=== PATIENT | male | born 1955 | race Caucasian/White ===

== ENCOUNTER → 2018-02-10 11:22 | Outpatient (CLI) | payer OTHER, SELFPAY ==
[2018-02-10 12:26] LABS: Estimated Glomerular Filt Rate > 60.0 mL/min (>60)
== END ==
PROVIDERS: Family Provider Student in an Organized Health Care Education/Training Program; Visit Provider Radiology Radiation Oncology
DX: C44.99 Other specified malignant neoplasm of skin, unspecified (principal)
CPT/HCPCS: 36415; 82565

== ENCOUNTER → 2018-03-07 09:46 | Outpatient (CLI) | payer OTHER, SELFPAY ==
[2018-03-07 10:42] LABS: Add Manual Diff / Slide Review NO; Basophils Percent Auto 0.5 % (0-2); Eosinophils Percent Auto 2.8 % (2-4); Hematocrit 39.7 % (41-53); Hemoglobin 14.3 g/dL (13.5-17.5); Lymphocytes Percent Auto 13.9 % (25-40); Mean Corpuscular HGB Conc 36.1 % (30-36); Mean Corpuscular Hemoglobin 30.2 PG (26-34); Mean Corpuscular Volume 83.5 fL (80-100); Monocytes Percent Auto 8.8 % (3-14); Neutrophils Absolute Auto 3900 /uL (3000-5900); Platelet Count 237 X10^3/uL (150-400); Red Blood Cell Count 4.75 X10^6/uL (4.5-5.9); Red Cell Distribution Width 14.1 % (11.6-14.8); White Blood Cell Count 5.3 X10^3/uL (4.5-11.0)
[2018-03-07 10:50] LABS: Hemoglobin A1C% w Est Avg Glu 5.5 % (4.0-6.0)
[2018-03-07 10:53] LABS: Blood Urea Nitrogen 25 mg/dL (9-20); Calcium 9.2 mg/dL (8.4-10.2); Carbon Dioxide 29 mmol/L (22-32); Chloride 101 mmol/L (98-107); Cholesterol 161 mg/dL (140-199); Estimated Glomerular Filt Rate > 60.0 mL/min (>60); Glucose 116 mg/dL (80-110); HDL Cholesterol 40 mg/dL (40-60); HEMOLYSIS < 15 (0-50); LDL Cholesterol Calculated 108 mg/dL (<100); Potassium 3.6 mmol/L (3.4-5.1); Sodium 143 mmol/L (137-145); Triglycerides 67 mg/dL (35-150)
[2018-03-07 11:17] LABS: Vitamin D 25 Hydroxy (D3) 23.9 ng/mL (30.0-100.0)
[2018-03-07 11:32] LABS: TSH w/ Reflex to FT4 0.69 uIU/mL (0.47-4.68)
== END ==
PROVIDERS: Family Provider Student in an Organized Health Care Education/Training Program; PCP Family Medicine; Visit Provider Student in an Organized Health Care Education/Training Program
DX: Z23 Encounter for immunization (principal); R50.9 Fever, unspecified; E11.9 Type 2 diabetes mellitus without complications; I10 Essential (primary) hypertension; E55.9 Vitamin D deficiency, unspecified
CPT/HCPCS: 36415; 80048; 80061; 82306; 83036; 84443; 85025

== ENCOUNTER → 2018-08-24 11:09 | Outpatient (CLI) | payer OTHER, SELFPAY ==
[2018-08-24 12:11] LABS: Hemoglobin A1C% w Est Avg Glu 5.8 % (4.0-6.0)
[2018-08-24 12:26] LABS: Alanine Aminotransferase 14 IU/L (21-72); Albumin 4.2 g/dL (3.5-5.0); Albumin Globulin Ratio 1.4 (1.0-2.8); Alkaline Phosphatase 41 U/L (38-126); Aspartate Aminotransferase 17 IU/L (17-59); Bilirubin Total 0.5 mg/dL (0.2-1.3); Blood Urea Nitrogen 20 mg/dL (9-20); Carbon Dioxide 30 mmol/L (22-32); Chloride 101 mmol/L (98-107); Estimated Glomerular Filt Rate > 60.0 mL/min (>60); Globulin 3.1 g/dL (1.7-4.1); Glucose 163 mg/dL (80-110); HEMOLYSIS < 15 (0-50); Potassium 3.3 mmol/L (3.4-5.1); Sodium 140 mmol/L (137-145); Total Protein 7.3 g/dL (6.3-8.2)
[2018-08-24 12:41] LABS: Vitamin D 25 Hydroxy (D3) 37.6 ng/mL (30.0-100.0)
== END ==
PROVIDERS: Family Provider Student in an Organized Health Care Education/Training Program; PCP Student in an Organized Health Care Education/Training Program; Visit Provider Student in an Organized Health Care Education/Training Program
DX: E11.9 Type 2 diabetes mellitus without complications (principal); E55.9 Vitamin D deficiency, unspecified
CPT/HCPCS: 36415; 80053; 82306; 83036

== ENCOUNTER 2019-10-11 16:05 | Emergency (ER) | payer MEDICARE, SELFPAY ==
[2019-10-11] VITALS (19 sets, daily range): BP systolic 180–260; BP diastolic 80–121; PULSE 71–84; RESP 14–24; TEMP 36.8; O2SAT 98–100; BMI 26.6
--- NOTE | 2019-10-11 16:20 | DI.RAD.S_ITS ---
PROCEDURE: XR CHEST 1V INDICATIONS: htn TECHNIQUE: One view of the chest was acquired. COMPARISON: [facility], , CHEST 1 VIEW, 09/23/2009, 22:14. FINDINGS: Surgical changes and devices: None. Lungs and pleura: Lungs are clear. No pleural effusions or pneumothorax. Mediastinum: Mediastinal contours appear normal. Heart size is normal. Bones and chest wall: No suspicious bony lesions. Overlying soft tissues appear unremarkable. IMPRESSION: No evidence acute pulmonary process. Dictated by: Renaldo Brown M.D. on 10/11/2019 at 16:40 Approved by: Renaldo Brown M.D. on 10/11/2019 at 16:41
--- NOTE | 2019-10-11 16:22 | ED.GENADULT ---
HPI - General Adult <NILDA Freedman - Last Filed: 10/11/19 20:53> General Chief complaint: Hypertension Stated complaint: states elevated blood pressure Time Seen by Provider: 10/11/19 16:09 Source: patient Mode of arrival: Ambulatory Limitations: no limitations History of Present Illness HPI narrative: The patient is a 64-year-old male with history of diabetes, hyperlipidemia, hypertension and cerebral aneurysm as well as CVA who presents with a chief complaint of hypertension. He states he ate a meal at the [employer] that was it deep fried chicken fingers with honey mustard sauce and then went to his primary care provider appointment where he was found to be hypertensive in the 200 systolic range. He denies any chest pain shortness of breath. He denies any nausea or vomiting. He states overall he feels fine, that his doctor was just worried about his blood pressure. He states he takes verapamil, losartan, and hydrochlorothiazide. He states he took his medications this morning. He denies any abnormal headache, dizziness or lightheadedness. Related Data Home Medications Medication Instructions Recorded Confirmed aspirin 81 mg tablet,delayed 81 mg PO DAILY 05/05/19 10/11/19 release Previous Rx's Medication Instructions Recorded verapamil 180 mg tablet,extended 180 mg PO BID #180 tab 06/28/18 release Nebulizer #1 ea 10/11/19 hydralazine 25 mg tablet 25 mg PO QID #120 tab 10/12/19 losartan 100 mg tablet 100 mg PO DAILY #90 tab 10/12/19 Allergies Allergy/AdvReac Type Severity Reaction Status Date / Time No Known Drug Allergies Allergy Verified 10/11/19 16:14 Patient History <NILDA Freedman - Last Filed: 10/11/19 20:53> Medical History (Updated 10/11/19 @ 20:47 by NILDA Freedman) Cerebral aneurysm (Resolved) Cerebrovascular accident (CVA) of thalamus (Resolved 05/2009) Chicken pox (Resolved) Diabetes mellitus (Chronic) Foot fracture, left (Resolved) Fracture of right lower extremity (Resolved) Hyperlipidemia (Chronic) Hypertension (Chronic) Squamous cell carcinoma of skin of scalp and neck (Resolved 06/2017) Testicular cancer (Resolved 1997) Surgical History (Updated 02/10/18 @ 11:42 by Yesenia Lott) History of orchiectomy, unilateral (Resolved 1997) History of orthopedic surgery (Resolved) History of squamous cell carcinoma excision (Resolved 06/2017) Family History (Updated 02/10/18 @ 11:25 by Yesenia Lott) Father Cancer Heart disease Diabetes mellitus Grandfather Heart disease Grandmother Stroke Mother Hypertension Asthma Social History Smoking Status: Never smoker alcohol intake: never substance use type: marijuana Smoking Status: Never smoker Substance Use Type: marijuana Exam <NILDA Freedman - Last Filed: 10/11/19 20:53> Initial Vital Signs Initial Vital Signs: Vital Signs Temperature 98.2 F 10/11/19 16:14 Pulse Rate 78 10/11/19 16:14 Respiratory Rate 10/11/19 16:14 Blood Pressure 260/121 H 10/11/19 16:14 Pulse Oximetry 98 10/11/19 16:14 <Bradley Lanza MD - Last Filed: 10/25/19 07:16> Initial Vital Signs Initial Vital Signs: Vital Signs Temperature 98.2 F 10/11/19 16:14 Pulse Rate 78 10/11/19 16:14 Respiratory Rate 10/11/19 16:14 Blood Pressure 260/121 H 10/11/19 16:14 Pulse Oximetry 98 10/11/19 16:14 Course <NILDA Freedman - Last Filed: 10/11/19 20:53> Orders Ordered: Discontinued Medications Hydralazine HCl (Apresoline) 10 mg IV NOW ONE Stop: 10/11/19 17:03 Last Admin: 10/11/19 17:20 Dose: 10 mg Documented by: [email or web address] Potassium Chloride (Klor-Con M20) 40 meq PO NOW ONE Stop: 10/11/19 20:48 Last Admin: 10/11/19 21:26 Dose: 40 meq Documented by: [email or web address] Verapamil HCl (Verapamil Er) 180 mg PO NOW ONE Stop: 10/11/19 17:12 Last Admin: 10/11/19 17:49 Dose: 180 mg Documented by: [email or web address].CL Vital Signs Vital signs: Vital Signs - 8 hr 10/11/19 16:14 10/11/19 17:20 10/11/19 17:30 Temperature 98.2 F Pulse Rate 78 73 77 Respiratory Rate 20 16 Blood Pressure 260/121 H 225/107 H 221/107 H Pulse Oximetry 98 99 10/11/19 18:05 10/11/19 18:13 10/11/19 18:15 Temperature Pulse Rate 81 82 83 Respiratory Rate 16 24 19 Blood Pressure 252/112 H 228/109 H Pulse Oximetry 99 10/11/19 19:10 Temperature Pulse Rate 77 Respiratory Rate 14 Blood Pressure 223/104 H Pulse Oximetry <Bradley Lanza MD - Last Filed: 10/25/19 07:16> Orders Ordered: Discontinued Medications Hydralazine HCl (Apresoline) 10 mg IV NOW ONE Stop: 10/11/19 17:03 Last Admin: 10/11/19 17:20 Dose: 10 mg Documented by: [email or web address] Potassium Chloride (Klor-Con M20) 40 meq PO NOW ONE Stop: 10/11/19 20:48 Last Admin: 10/11/19 21:26 Dose: 40 meq Documented by: KBROTEM Verapamil HCl (Verapamil Er) 180 mg PO NOW ONE Stop: 10/11/19 17:12 Last Admin: 10/11/19 17:49 Dose: 180 mg Documented by: [email or web address] Vital Signs Vital signs: Vital Signs - 8 hr 10/11/19 16:14 10/11/19 17:20 10/11/19 17:30 Temperature 98.2 F Pulse Rate 78 73 77 Respiratory Rate 20 16 Blood Pressure 260/121 H 225/107 H 221/107 H Pulse Oximetry 98 99 10/11/19 18:05 10/11/19 18:13 10/11/19 18:15 Temperature Pulse Rate 81 82 83 Respiratory Rate 16 24 19 Blood Pressure 252/112 H 228/109 H Pulse Oximetry 99 10/11/19 19:10 Temperature Pulse Rate 77 Respiratory Rate 14 Blood Pressure 223/104 H Pulse Oximetry Medical Decision Making <MANOLO Freedman-BC - Last Filed: 10/11/19 20:53> Lab Data Result diagrams: 10/11/19 16:20 10/11/19 16:20 Labs: Lab Results 10/11/19 10/11/19 10/11/19 Range/Units 16:20 16:20 17:50 WBC 8.6 (4.5-11.0) X10^3/uL RBC 5.10 (4.5-5.9) X10^6/uL Hgb 15.0 (13.5-17.5) g/dL Hct 42.4 (41-53) % MCV 83.2 (80-100) fL MCH 29.4 (26-34) PG MCHC 35.3 (30-36) % RDW 13.9 (11.6-14.8) % Plt Count 229 (150-400) X10^3/uL Neut % (Auto) 77.7 H (50-75) % Lymph % (Auto) 12.7 L (25-40) % [place] % (Auto) 8.1 (3-14) % Eos % (Auto) 0.9 L (2-4) % Baso % (Auto) 0.6 (0-2) % Neut # (Auto) 6700 (1064-3854) /uL Lymph # (Auto) 1100 (9204-9214) /uL [place] # (Auto) 700 (0-900) /uL Eos # (Auto) 100 (0-450) /uL Baso # (Auto) 0 (0-100) /uL Sodium 139 (137-145) mmol/L Potassium 3.2 L (3.4-5.1) mmol/L Chloride 102 (98-107) mmol/L Carbon Dioxide 28 (22-32) mmol/L BUN 23 H (9-20) mg/dL Creatinine 1.07 (0.66-1.25) mg/dL Estimated GFR > 60.0 (>60) mL/min BUN/Creatinine Ratio 21.5 (6-22) Glucose 168 H (80-110) mg/dL Calcium 9.4 (8.4-10.2) mg/dL Total Bilirubin 0.4 (0.2-1.3) mg/dL AST 21 (17-59) IU/L ALT 23 (<50) IU/L Alkaline Phosphatase 50 (38-126) U/L Total Creatine Kinase 70 (55-170) U/L CK-MB (CK-2) TNP CK-MB (CK-2) Rel Index TNP Troponin I < 0.012 (0.01-0.034) ng/mL Total Protein 7.3 (6.3-8.2) g/dL Albumin 4.4 (3.5-5.0) g/dL Globulin 2.9 (1.7-4.1) g/dL Albumin/Globulin Ratio 1.5 (1.0-2.8) Lipase 247 (23-300) U/L Urine RBC None seen (0-5/HPF) Urine WBC None seen (0-5/HPF) Urine Bacteria None seen (None) Ur Culture Indicated? Cult not indicated Micro UA Comment Microscopic normal Urine Dip Bedside Urine Glucose Negative Bedside Urine Bilirubin - Negative Bedside Urine Ketone - Negative Urine Specific [place] 1.015 Bedside Urine Occult Blood +/- Bedside Urine pH 7.0 Bedside Urine Protein - Negative Bedside Urine Urobilinogen +/- 1mg Bedside Urine Nitrite - Negative Bedside Urine Leukocytes - Negative Esterase Point of care testing: Urine Dip Bedside Urine Glucose Negative Bedside Urine Bilirubin - Negative Bedside Urine Ketone - Negative Urine Specific [place] 1.015 Bedside Urine Occult Blood +/- Bedside Urine pH 7.0 Bedside Urine Protein - Negative Bedside Urine Urobilinogen +/- 1mg Bedside Urine Nitrite - Negative Bedside Urine Leukocytes - Negative Esterase <Bradley Lanza MD - Last Filed: 10/25/19 07:16> Lab Data Labs: Lab Results 10/11/19 10/11/19 10/11/19 Range/Units 16:20 16:20 17:50 WBC 8.6 (4.5-11.0) X10^3/uL RBC 5.10 (4.5-5.9) X10^6/uL Hgb 15.0 (13.5-17.5) g/dL Hct 42.4 (41-53) % MCV 83.2 (80-100) fL MCH 29.4 (26-34) PG MCHC 35.3 (30-36) % RDW 13.9 (11.6-14.8) % Plt Count 229 (150-400) X10^3/uL Neut % (Auto) 77.7 H (50-75) % Lymph % (Auto) 12.7 L (25-40) % [place] % (Auto) 8.1 (3-14) % Eos % (Auto) 0.9 L (2-4) % Baso % (Auto) 0.6 (0-2) % Neut # (Auto) 6700 (0785-7326) /uL Lymph # (Auto) 1100 (1249-0341) /uL [place] # (Auto) 700 (0-900) /uL Eos # (Auto) 100 (0-450) /uL Baso # (Auto) 0 (0-100) /uL Sodium 139 (137-145) mmol/L Potassium 3.2 L (3.4-5.1) mmol/L Chloride 102 (98-107) mmol/L Carbon Dioxide 28 (22-32) mmol/L BUN 23 H (9-20) mg/dL Creatinine 1.07 (0.66-1.25) mg/dL Estimated GFR > 60.0 (>60) mL/min BUN/Creatinine Ratio 21.5 (6-22) Glucose 168 H (80-110) mg/dL Calcium 9.4 (8.4-10.2) mg/dL Total Bilirubin 0.4 (0.2-1.3) mg/dL AST 21 (17-59) IU/L ALT 23 (<50) IU/L Alkaline Phosphatase 50 (38-126) U/L Total Creatine Kinase 70 (55-170) U/L CK-MB (CK-2) TNP CK-MB (CK-2) Rel Index TNP Troponin I < 0.012 (0.01-0.034) ng/mL Total Protein 7.3 (6.3-8.2) g/dL Albumin 4.4 (3.5-5.0) g/dL Globulin 2.9 (1.7-4.1) g/dL Albumin/Globulin Ratio 1.5 (1.0-2.8) Lipase 247 (23-300) U/L Urine RBC None seen (0-5/HPF) Urine WBC None seen (0-5/HPF) Urine Bacteria None seen (None) Ur Culture Indicated? Cult not indicated Micro UA Comment Microscopic normal Urine Dip Bedside Urine Glucose Negative Bedside Urine Bilirubin - Negative Bedside Urine Ketone - Negative Urine Specific [place] 1.015 Bedside Urine Occult Blood +/- Bedside Urine pH 7.0 Bedside Urine Protein - Negative Bedside Urine Urobilinogen +/- 1mg Bedside Urine Nitrite - Negative Bedside Urine Leukocytes - Negative Esterase Point of care testing: Urine Dip Bedside Urine Glucose Negative Bedside Urine Bilirubin - Negative Bedside Urine Ketone - Negative Urine Specific [place] 1.015 Bedside Urine Occult Blood +/- Bedside Urine pH 7.0 Bedside Urine Protein - Negative Bedside Urine Urobilinogen +/- 1mg Bedside Urine Nitrite - Negative Bedside Urine Leukocytes - Negative Esterase Discharge Plan Departure Patient Disposition: Home Clinical Impression: Essential hypertension Discharge Date/Time: 10/11/19 22:02 Instructions: DI for High Blood Pressure Activity Restrictions/Additional Instructions: Thank you for trusting us with your care today. As discussed, your blood pressure is very elevated. Personally I wanted you to stay in the hospital, but you have declined. As discussed, your welcome to come back at any point in time. Please watch for symptoms such as chest pain, shortness of breath etcetera We have discussed that you have increased risk of or injury due to your aneurysm with high blood pressure. Please follow-up with primary care provider tomorrow. Please come back to the emergency department for any acute concerns. Prescriptions: No Action verapamil 180 mg tablet extended release 180 mg PO BID Qty: 180 RF: 3 losartan 100 mg tablet 100 mg PO DAILY Qty: 90 RF: 1 hydralazine 25 mg tablet 25 mg PO QID Qty: 120 RF: 0 aspirin 81 mg tablet,delayed release (DR/EC) 81 mg PO DAILY RF: 0 (DME) Nebulizer Qty: 1 RF: 0 Referrals: Zelalem Cheng MD [Primary Care Provider] - <Bradley Lanza MD - Last Filed: 10/25/19 07:16> Cosign ED Attending Cosignature Attestation: I was immediately available in the department for consultation. This documentation has been reviewed and I agree with assessment and plan. Supervised by Bradley Lanza MD
[2019-10-11 16:35] LABS: Add Manual Diff / Slide Review NO; Basophils Absolute Auto 0 /uL (0-100); Basophils Percent Auto 0.6 % (0-2); Eosinophils Absolute Auto 100 /uL (0-450); Eosinophils Percent Auto 0.9 % (2-4); Hematocrit 42.4 % (41-53); Lymphocytes Absolute Auto 1100 /uL (1100-4500); Lymphocytes Percent Auto 12.7 % (25-40); Mean Corpuscular HGB Conc 35.3 % (30-36); Mean Corpuscular Hemoglobin 29.4 PG (26-34); Mean Corpuscular Volume 83.2 fL (80-100); Monocytes Absolute Auto 700 /uL (0-900); Monocytes Percent Auto 8.1 % (3-14); Neutrophils Absolute Auto 6700 /uL (1500-7000); Neutrophils Percent Auto 77.7 % (50-75); Platelet Count 229 X10^3/uL (150-400); Red Cell Distribution Width 13.9 % (11.6-14.8); White Blood Cell Count 8.6 X10^3/uL (4.5-11.0)
[2019-10-11 16:44] LABS: Alanine Aminotransferase 23 IU/L (<50); Albumin 4.4 g/dL (3.5-5.0); Albumin Globulin Ratio 1.5 (1.0-2.8); Alkaline Phosphatase 50 U/L (38-126); Aspartate Aminotransferase 21 IU/L (17-59); BUN Creatinine Ratio 21.5 (6-22); Bilirubin Total 0.4 mg/dL (0.2-1.3); Blood Urea Nitrogen 23 mg/dL (9-20); Calcium 9.4 mg/dL (8.4-10.2); Carbon Dioxide 28 mmol/L (22-32); Chloride 102 mmol/L (98-107); Creatine Kinase 70 U/L (55-170); Estimated Glomerular Filt Rate > 60.0 mL/min (>60); Globulin 2.9 g/dL (1.7-4.1); Glucose 168 mg/dL (80-110); HEMOLYSIS < 15 (0-50); Lipase 247 U/L (23-300); Potassium 3.2 mmol/L (3.4-5.1); Sodium 139 mmol/L (137-145); Total Protein 7.3 g/dL (6.3-8.2)
[2019-10-11 16:55] LABS: Troponin I < 0.012 ng/mL (0.01-0.034)
--- NOTE | 2019-10-11 17:06 | PC.NURSE ---
ED physician in room to speak with pt regarding admission.Dietary order arrived. HOB elevated.
[2019-10-11] MEDS: HYDRALAZINE 20 MG/ML VIAL 10 MG IV (17:20)
[2019-10-11] MEDS: VERAPAMIL SR 180 MG TABLET PO (17:49)
[2019-10-11 18:27] LABS: Bacteria Urine None Seen; RBC Urine None Seen (0-5/HPF); WBC Urine None Seen (0-5/HPF)
[2019-10-11 18:32] LABS: Culture Indicated Urine Cult Not Indicated; Urine Comments Microscopic Normal
[2019-10-11] MEDS: POTASSIUM CHLORIDE 20 MEQ TAB 40 MEQ PO (21:26)
== END 2019-10-11 22:02 | disposition home or self-care (01) ==
PROVIDERS: Emergency Provider Nurse Practitioner Family; Family Provider Student in an Organized Health Care Education/Training Program; PCP Student in an Organized Health Care Education/Training Program
DX: I10 Essential (primary) hypertension (principal); E11.9 Type 2 diabetes mellitus without complications; E78.5 Hyperlipidemia, unspecified; Z86.79 Personal history of other diseases of the circulatory system
CPT/HCPCS: 71045; 80053; 81003; 81015; 82550; 83690; 84484; 85025; 96374; 99284; J0360

== ENCOUNTER 2020-01-19 12:24 | Inpatient (IN) | payer MEDICARE, SELFPAY ==
[2020-01-19] VITALS (18 sets, daily range): BP systolic 172–240; BP diastolic 88–100; PULSE 70–86; RESP 16–22; TEMP 37.2–37.3; O2SAT 94–99; BMI 25.0
--- NOTE | 2020-01-19 12:32 | DI.CT.S_ITS ---
PROCEDURE: CT HEAD/BRAIN WO CON INDICATIONS: 48 hours since symptoms, NOT TPA candidate TECHNIQUE: Noncontrast 4.5 mm thick angled axial sections acquired from the foramen magnum to the vertex, with coronal and sagittal reformats. For radiation dose reduction, the following was used: automated exposure control, adjustment of mA and/or kV according to patient size. COMPARISON: [facility], CT, HEAD WITHOUT CONTRAST, 06/12/2009, 6:10. FINDINGS: Image quality: Excellent. CSF spaces: Basal cisterns are patent. No extra-axial fluid collections. The ventricles are symmetric in size and shape. Brain: There is focal low density seen involving the right parietal region laterally, as on series 2, image 20. No intracranial bleeds or masses. There is cerebral volume loss for age, with resultant ventricular and sulcal prominence. There are periventricular and deep white matter chronic small vessel ischemic changes. There is intracranial internal carotid artery atherosclerosis. Skull and face: Calvarium and visualized facial bones appear intact, without suspicious lesions. Sinuses: Visualized sinuses and mastoids are clear. IMPRESSION: No acute intracranial hemorrhage is seen. A subacute to remote infarction can be seen involving the right parietal region. This cannot be seen on the 2009 examination. If there is strong clinical suspicion for an acute stroke, please consider an MRI for further evaluation, as it is more sensitive (assuming that there is no contraindication to MRI). Dictated by: Santiago Page M.D. on 01/19/2020 at 11:49 Approved by: Santiago Page M.D. on 01/19/2020 at 11:50
[2020-01-19 12:57] LABS: Add Manual Diff / Slide Review NO; Basophils Absolute Auto 0 /uL (0-100); Basophils Percent Auto 0.3 % (0-2); Eosinophils Absolute Auto 0 /uL (0-450); Eosinophils Percent Auto 0.5 % (2-4); Hematocrit 40.4 % (41-53); Hemoglobin 13.9 g/dL (13.5-17.5); Lymphocytes Absolute Auto 600 /uL (1100-4500); Lymphocytes Percent Auto 7.9 % (25-40); Mean Corpuscular HGB Conc 34.4 % (30-36); Mean Corpuscular Hemoglobin 29.3 PG (26-34); Mean Corpuscular Volume 85.3 fL (80-100); Monocytes Absolute Auto 500 /uL (0-900); Monocytes Percent Auto 5.9 % (3-14); Neutrophils Absolute Auto 6700 /uL (1500-7000); Neutrophils Percent Auto 85.4 % (50-75); Platelet Count 231 X10^3/uL (150-400); Red Blood Cell Count 4.74 X10^6/uL (4.5-5.9); Red Cell Distribution Width 14.4 % (11.6-14.8); White Blood Cell Count 7.9 X10^3/uL (4.5-11.0)
[2020-01-19 13:06] LABS: INR 1.1 (0.9-1.3); Prothrombin Time 12.9 SECONDS (10.1-12.7)
[2020-01-19 13:09] LABS: PTT Partial Thromboplastin Tim 27 SECONDS (26.4-36.2)
--- NOTE | 2020-01-19 13:12 | DI.MRI.S_ITS ---
PROCEDURE: MR STROKE Pre- and post-contrast brain MRI, non-contrast brain MR angiogram, pre- and postcontrast neck MR angiogram INDICATIONS: stroke TECHNIQUE: Brain: Noncontrast axial T1 spin echo, axial T2 fast spin echo, sagittal and axial FLAIR, coronal T2 fast spin echo, axial gradient echo, axial diffusion and ADC through the brain. After the administration of contrast, axial 3D VIBE of the cranial vasculature and brain. Brain MRA: Non-contrast 3-D time of flight MR angiogram, with multiple nfbabmu-jekprimoy-lsceplebzn (MIP) reformats performed. Neck MRA: Axial and sagittal TruFISP through the neck. Coronal dynamic MR angiogram during administration of contrast in the arterial and venous phases, with 3-dimenstional mvrqnup-bflegggle-hqzqbrjhrp (MIP) reformats constructed from subtraction images. COMPARISON: [facility], CT, CT HEAD/BRAIN WO CON, 01/19/2020, 12:36. FINDINGS: Image quality: Excellent. BRAIN: CSF spaces: Ventricles are normal in size and shape. Basal cisterns are patent. No extra-axial fluid collections. Brain: No intracranial bleeds or mass effects. Marquez-white matter interface is normal on the left and unchanged on right the posterior right parietal occipital region son acute ischemic injury corresponding to the abnormality found earlier same day in that area on CT scanning. This measures up to 4.5 cm in maximal dimension and has mild adjacent mass effect. A small amount of luxury perfusion comprised of mildly heterogeneous contrast enhancement within this area of ischemic injury can be seen on postcontrast imaging open (series 36, image 110, for example). Diffusion weighted images show no superimposed acute ischemic insults over the convexities in addition to this subacute abnormality. However, the right and paramedian pontomedullary junction portion of the brainstem shows a small area measuring approximately 1.5 cm of acute/subacute ischemic injury without significant mass effect or associated hemorrhage. This is best seen on diffusion imaging series 26, image 55. Elsewhere the brainstem appears normal. Normal intravascular flow voids are present. No abnormal intracranial enhancement. Skull and face: Calvarial marrow signal is normal. Orbits appear normal. Sinuses: Sinuses and mastoids are clear. BRAIN MR ANGIOGRAM: Anterior circulation: Intracranial internal carotid arteries are normal in size and enhancement. The flow within the paired anterior cerebral arteries is normal and symmetric. The flow within the middle cerebral arteries is normal and symmetric. The anterior communicating artery is seen. No stenoses, occlusions, or aneurysms. Posterior circulation: The visualized portions of the vertebral arteries demonstrate normal caliber, and join to form a normal appearing basilar artery. The flow within the posterior cerebral arteries is normal and symmetric. No stenoses, occlusions, or aneurysms. NECK MR ANGIOGRAM: Carotids: Great vessels demonstrate a conventional anatomy as they arise from the aortic arch. The origins of the common carotid arteries appear patent. The calibers and courses of both common carotid arteries are normal. The bifurcation regions appear normal bilaterally. The internal carotid arteries demonstrate normal course and caliber. Posterior circulation: The origins of the vertebral arteries appear patent. More superior portions of both vertebral arteries demonstrate normal course and caliber, and join to form a normal appearing basilar artery. Miscellaneous: Subclavian arteries appear patent. Pre-contrast images through the neck show no soft tissue abnormalities. IMPRESSION: BRAIN MRI: Subacute ischemic injury is present within a 4.5 cm diameter sharply demarcated area of the right occipital parietal region corresponding to the area of abnormality identified earlier same day in that area, with a small amount of contrast enhancement involving the injured brain parenchyma due to secondary increased per me ability of the blood brain barrier as result. No hemorrhage is found. There is, however, a more recent appearing area of focal ischemic injury involving the pontomedullary junction of the brainstem on the right, extending to the midline. This 1.5 cm area shows elevated diffusion signal and also elevated FLAIR signal but no heterogeneous contrast enhancement, suggestive of a more acute event. BRAIN MR ANGIOGRAM: No aneurysm or occlusion found. NECK MR ANGIOGRAM: Normal cervical MR angiogram. Dictated by: Tao Strauss M.D. on 01/19/2020 at 20:41 Approved by: Tao Strauss M.D. on 01/19/2020 at 20:54
--- NOTE | 2020-01-19 13:12 | ED.NEUROSD ---
HPI - Neuro Symptoms/Deficit General Chief Complaint: Neuro Symptoms/Deficit Stated Complaint: dizziness, falls, slurring speech, mouth droop Time Seen by Provider: 01/19/20 12:27 Source: patient and family Mode of arrival: Ambulatory Limitations: no limitations History of Present Illness HPI Narrative: Patient is a 65-year-old male with history of aneurysm, hypertension, hyperlipidemia presenting with probable stroke. states 2 days ago he started having difficulty walking he fell last night and hit is head. Today she noticed that he was still having some trouble walking any had some right-sided facial droop and possibly some speech difficulty as well. He has not have speech difficulty now he does have some mild right facial droop. He states that he did have an aneurysmal bleed while ago but he never had it coiled they were unable to reach it. He denies any chest pain or shortness of breath or other symptoms. He has been walking with a cane in the house because he feels weak and unsteady which is abnormal for him. Onset (ago): day(s) Timing confirmed by: spouse Location: right face and ataxia History of same: No Quality: weak On Anticoagulants: No Related Data Home Medications Medication Instructions Recorded Confirmed aspirin 81 mg tablet,delayed 81 mg PO QAM 05/05/19 01/19/20 release losartan 100 mg PO QAM 01/19/20 01/19/20 Previous Rx's Medication Instructions Recorded verapamil 180 mg tablet,extended 180 mg PO BID #180 tab 11/03/19 release hydralazine 50 mg tablet 50 mg PO QID #360 tab 11/08/19 Allergies Allergy/AdvReac Type Severity Reaction Status Date / Time No Known Drug Allergies Allergy Verified 10/11/19 16:14 Review of Systems Review of Systems Narrative: GENERAL: Denies chills, fatigue, malaise, fever, sweats, travel HEENT: Denies sinus pain, ear pain, sore throat, difficulty swallowing, neck pain RESPIRATORY: Denies dyspnea, cough, wheezing, hemoptysis, sputum. CARDIOVASCULAR: Denies chest pain, palpitations, orthopnea, edema GASTROINTESTINAL: Denies nausea, vomiting, abdominal pain, diarrhea, constipation, melena. : Denies dysuria, frequency, incontinence, hematuria, urinary retention, flank pain. MUSCULOSKELETAL: Denies weakness, joint pain, or bony pain SKIN: No rash, no erythema, no pruritus NEUROLOGIC: See HPI PSYCHIATRIC: No concerning psychosocial issues. 12 point review of systems is negative except for those stated above and HPI Patient History Medical History Cerebral aneurysm (Resolved) Cerebrovascular accident (CVA) of thalamus (Resolved 05/2009) Chicken pox (Resolved) Diabetes mellitus (Chronic) Foot fracture, left (Resolved) Fracture of right lower extremity (Resolved) Hyperlipidemia (Chronic) Hypertension (Chronic) Squamous cell carcinoma of skin of scalp and neck (Resolved 06/2017) Testicular cancer (Resolved 1997) Surgical History History of orchiectomy, unilateral (Resolved 1997) History of orthopedic surgery (Resolved) History of squamous cell carcinoma excision (Resolved 06/2017) Family History Father Cancer Heart disease Diabetes mellitus Grandfather Heart disease Grandmother Stroke Mother Hypertension Asthma Social History household members: spouse Smoking Status: Current every day smoker alcohol intake: never substance use type: marijuana Smoking Status: Never smoker Substance Use Type: marijuana Exam Initial Vital Signs Initial Vital Signs: Vital Signs Pulse Rate 86 01/19/20 12:30 GENERAL: Alert male appears older than stated age HEENT: Head atraumatic,EOMI, pupils reactive, face symmetric, moist mucous membranes CARDIOVASCULAR: Regular rate and rhythm without murmurs, rubs or gallops. RESPIRATORY: Breath sounds equal bilaterally, no wheezes rales or rhonchi. ABDOMEN: Soft, nontender. Normoactive bowel sounds all 4 quadrants. No guarding or rebound. EXTREMITIES: Normal range of motion, no clubbing or edema. Neurovascularly intact NEUROLOGICAL: Alert and oriented x4.No aphasia noticed her 3 Cranial nerves II through XII grossly intact. Good [id number], good [id number], strength equal bilaterally, no dysarthria or aphasia, sensation in tact to soft touch bilaterally, no visual changes, no facial droop SKIN: Warm, dry, no laceration, no petechiae, no rashes or lesions. Scores NIH Stroke Scale Level of Conciousness: Alert, keenly responsive Ask month/age: Answers both questions correctly. Open/close eyes, close hand: Performs both tasks correctly Best gaze horizontal: Normal Visual retana: No visual loss Facial palsy: Minor paralysis, flattened nasolabial fold, asymmetry on smiling Left arm drift: No drift for full 10 sec Right arm drift: No drift for full 10 sec Left leg drift: No drift for full 5 sec Right leg drift: No drift for full 5 sec Limb ataxia: Absent Sensory on face/arms/legs: Normal, no sensory loss Best language: No aphasia, normal Dysarthria: Normal Extinction or inattention: No abnormality Total NIH Stroke scale score: 1 Course Orders Ordered: ED Orders 01/19/20 12:32 CT Stroke Stat Urine Drug Screen, Rapid Stat EKG-12 Lead Stat 01/19/20 12:45 Complete Blood Count AUTO DIFF Stat Comprehensive Metabolic Panel Stat Partial Thromboplastin Time Stat Prothrombin Time INR Stat Troponin & CK Cardiac Panel Stat 01/19/20 13:12 MR stroke Stat 01/19/20 13:28 COVID19 -ED/INPAT/OR/L&D Stat Acetaminophen (Tylenol) 650 mg PO Q6HR PRN PRN Reason: Fever/Mild Pain (1-3) Aspirin (Aspirin Ec) 81 mg PO DAILY [facility] Atorvastatin Calcium (Lipitor) 40 mg PO BEDTIME [facility] Dextrose (D50w) 25 gm IV PRN PRN PRN Reason: Hypoglycemia Enoxaparin Sodium (Lovenox) 40 mg SUBCUT DAILY [facility] Hydralazine HCl (Apresoline) 50 mg PO QID [facility] Insulin Aspart (Novolog Flexpen) 0 unit SUBCUT ACHS JOHNIE; Protocol Losartan Potassium (Cozaar) 100 mg PO DAILY [facility] Naloxone HCl (Narcan) 0.2 mg IV Q2MIN PRN PRN Reason: Opiate Reversal Ondansetron HCl (Zofran) 4 mg IV Q8HR PRN PRN Reason: Nausea And Vomiting Verapamil HCl (Verapamil Er) 180 mg PO BID JOHNIE Discontinued Medications Aspirin (Aspirin Chew) 324 mg PO NOW ONE Stop: 01/19/20 13:25 Last Admin: 01/19/20 13:46 Dose: 324 mg Documented by: TUTU Hydralazine HCl (Apresoline) 5 mg IV NOW ONE Stop: 01/19/20 13:55 Last Admin: 01/19/20 13:58 Dose: 5 mg Documented by: TUTU Influenza Virus Vaccine (Flu Vaccine) 0.5 ml IM .ONCE ONE Stop: 01/19/20 15:09 Vital Signs Vital signs: Vital Signs - 8 hr 01/19/20 12:30 01/19/20 12:31 01/19/20 12:32 Temperature 99.0 F Pulse Rate 86 82 84 Respiratory Rate 21 22 Blood Pressure 218/94 H 218/94 H Pulse Oximetry 99 99 01/19/20 12:52 01/19/20 13:00 01/19/20 13:30 Temperature Pulse Rate 80 80 80 Respiratory Rate Blood Pressure 210/92 H 208/91 H Pulse Oximetry 98 98 98 01/19/20 13:31 Temperature Pulse Rate 79 Respiratory Rate Blood Pressure 231/93 H Pulse Oximetry 98 MDM - Neuro Symptoms/Deficit Lab Data Attestation: I reviewed the patient's lab results. Result diagrams: 01/19/20 12:45 01/19/20 12:45 Labs: Lab Results 01/19/20 01/19/20 01/19/20 Range/Units 12:45 12:45 12:45 WBC 7.9 (4.5-11.0) X10^3/uL RBC 4.74 (4.5-5.9) X10^6/uL Hgb 13.9 (13.5-17.5) g/dL Hct 40.4 L (41-53) % MCV 85.3 (80-100) fL MCH 29.3 (26-34) PG MCHC 34.4 (30-36) % RDW 14.4 (11.6-14.8) % Plt Count 231 (150-400) X10^3/uL Neut % (Auto) 85.4 H (50-75) % Lymph % (Auto) 7.9 L (25-40) % [place] % (Auto) 5.9 (3-14) % Eos % (Auto) 0.5 L (2-4) % Baso % (Auto) 0.3 (0-2) % Neut # (Auto) 6700 (2855-7902) /uL Lymph # (Auto) 600 L (4111-3904) /uL [place] # (Auto) 500 (0-900) /uL Eos # (Auto) 0 (0-450) /uL Baso # (Auto) 0 (0-100) /uL PT 12.9 H (10.1-12.7) SECONDS INR 1.1 (0.9-1.3) APTT 27 (26.4-36.2) SECONDS Sodium 140 (137-145) mmol/L Potassium 3.6 (3.4-5.1) mmol/L Chloride 106 (98-107) mmol/L Carbon Dioxide 27 (22-32) mmol/L BUN 24 H (9-20) mg/dL Creatinine 1.13 (0.66-1.25) mg/dL Estimated GFR > 60.0 (>60) mL/min BUN/Creatinine Ratio 21.2 (6-22) Glucose 240 H (80-110) mg/dL Calcium 8.9 (8.4-10.2) mg/dL Total Bilirubin 0.7 (0.2-1.3) mg/dL AST 18 (17-59) IU/L ALT 19 (<50) IU/L Alkaline Phosphatase 43 (38-126) U/L Total Creatine Kinase 83 (55-170) U/L CK-MB (CK-2) TNP CK-MB (CK-2) Rel Index TNP Troponin I < 0.012 (0.01-0.034) ng/mL Total Protein 7.1 (6.3-8.2) g/dL Albumin 4.3 (3.5-5.0) g/dL Globulin 2.8 (1.7-4.1) g/dL Albumin/Globulin Ratio 1.5 (1.0-2.8) COVID-19 PCR (Negative) 01/19/20 Range/Units 13:28 WBC (4.5-11.0) X10^3/uL RBC (4.5-5.9) X10^6/uL Hgb (13.5-17.5) g/dL Hct (41-53) % MCV (80-100) fL MCH (26-34) PG MCHC (30-36) % RDW (11.6-14.8) % Plt Count (150-400) X10^3/uL Neut % (Auto) (50-75) % Lymph % (Auto) (25-40) % [place] % (Auto) (3-14) % Eos % (Auto) (2-4) % Baso % (Auto) (0-2) % Neut # (Auto) (1628-5546) /uL Lymph # (Auto) (5748-5178) /uL [place] # (Auto) (0-900) /uL Eos # (Auto) (0-450) /uL Baso # (Auto) (0-100) /uL PT (10.1-12.7) SECONDS INR (0.9-1.3) APTT (26.4-36.2) SECONDS Sodium (137-145) mmol/L Potassium (3.4-5.1) mmol/L Chloride (98-107) mmol/L Carbon Dioxide (22-32) mmol/L BUN (9-20) mg/dL Creatinine (0.66-1.25) mg/dL Estimated GFR (>60) mL/min BUN/Creatinine Ratio (6-22) Glucose (80-110) mg/dL Calcium (8.4-10.2) mg/dL Total Bilirubin (0.2-1.3) mg/dL AST (17-59) IU/L ALT (<50) IU/L Alkaline Phosphatase (38-126) U/L Total Creatine Kinase (55-170) U/L CK-MB (CK-2) CK-MB (CK-2) Rel Index Troponin I (0.01-0.034) ng/mL Total Protein (6.3-8.2) g/dL Albumin (3.5-5.0) g/dL Globulin (1.7-4.1) g/dL Albumin/Globulin Ratio (1.0-2.8) COVID-19 PCR Negative (Negative) Point of Care Testing Glucose POC [address] scan - head: Radiologist's Impression: PROCEDURE: CT HEAD/BRAIN WO CON INDICATIONS: 48 hours since symptoms, NOT TPA candidate TECHNIQUE: Noncontrast 4.5 mm thick angled axial sections acquired from the foramen magnum to the vertex, with coronal and sagittal reformats. For radiation dose reduction, the following was used: automated exposure control, adjustment of mA and/or kV according to patient size. COMPARISON: [facility], CT, HEAD WITHOUT CONTRAST, 06/12/2009, 6:10. FINDINGS: Image quality: Excellent. CSF spaces: Basal cisterns are patent. No extra-axial fluid collections. The ventricles are symmetric in size and shape. Brain: There is focal low density seen involving the right parietal region laterally, as on series 2, image 20. No intracranial bleeds or masses. There is cerebral volume loss for age, with resultant ventricular and sulcal prominence. There are periventricular and deep white matter chronic small vessel ischemic changes. There is intracranial internal carotid artery atherosclerosis. Skull and face: Calvarium and visualized facial bones appear intact, without suspicious lesions. Sinuses: Visualized sinuses and mastoids are clear. IMPRESSION: No acute intracranial hemorrhage is seen. A subacute to remote infarction can be seen involving the right parietal region. This cannot be seen on the 2010 examination. If there is strong clinical suspicion for an acute stroke, please consider an MRI for further evaluation, as it is more sensitive (assuming that there is no contraindication to MRI). Dictated by: Santiago Page M.D. on 01/19/2020 at 11:49 Approved by: Santiago Page M.D. on 01/19/2020 at 11:50 ECG Data Attestation: I personally reviewed and interpreted this ECG as follows: Prior ECG tracings: available for review Interpretation: Rate it was 82 p.r. interval 158 QRS [address] changes or T-wave inversions MDM Narrative Medical decision making narrative: CT shows subacute stroke. Dr. Franks except for CVA. Discharge Plan Departure Patient Disposition: Admitted as Observation Clinical Impression: CVA (cerebral vascular accident) Qualifiers: CVA mechanism: other Qualified Code(s): I63.89 - Other cerebral infarction Discharge Date/Time: 01/19/20 14:44 Referrals: Zelalem Cheng MD [Primary Care Provider] - Admit Date/Time: 01/19/20 13:41 Admit Provider: Tomás Tucker
[2020-01-19 13:13] LABS: Alanine Aminotransferase 19 IU/L (<50); Albumin 4.3 g/dL (3.5-5.0); Albumin Globulin Ratio 1.5 (1.0-2.8); Alkaline Phosphatase 43 U/L (38-126); Aspartate Aminotransferase 18 IU/L (17-59); BUN Creatinine Ratio 21.2 (6-22); Bilirubin Total 0.7 mg/dL (0.2-1.3); Blood Urea Nitrogen 24 mg/dL (9-20); Calcium 8.9 mg/dL (8.4-10.2); Carbon Dioxide 27 mmol/L (22-32); Chloride 106 mmol/L (98-107); Creatine Kinase 83 U/L (55-170); Estimated Glomerular Filt Rate > 60.0 mL/min (>60); Globulin 2.8 g/dL (1.7-4.1); Glucose 240 mg/dL (80-110); HEMOLYSIS < 15 (0-50); Potassium 3.6 mmol/L (3.4-5.1); Sodium 140 mmol/L (137-145); Total Protein 7.1 g/dL (6.3-8.2)
[2020-01-19 13:24] LABS: Troponin I < 0.012 ng/mL (0.01-0.034)
[2020-01-19] MEDS: ASPIRIN 81 MG CHEW TAB 324 MG PO (13:46)
[2020-01-19 13:52] LABS: COVID19 -Nasal RAPID Negative (Negative)
[2020-01-19] MEDS: HYDRALAZINE 20 MG/ML VIAL 5 MG IV (13:58)
--- NOTE | 2020-01-19 15:13 | PC.ADMIT ---
[id number] [facility] Admission Note: The patient,Bradley Jackson,65 y/o, was given written information regarding hospital policies, unit procedures and contact persons. Patient's smoking status: Current every day smoker. Vital Signs - 8 hr 01/19/20 12:30 01/19/20 12:31 01/19/20 12:32 Temperature 99.0 F Pulse Rate 86 82 84 Respiratory Rate 21 22 Blood Pressure 218/94 H 218/94 H Pulse Oximetry 99 99 01/19/20 12:52 01/19/20 13:00 01/19/20 13:30 Temperature Pulse Rate 80 80 80 Respiratory Rate Blood Pressure 210/92 H 208/91 H Pulse Oximetry 98 98 98 01/19/20 13:31 01/19/20 13:53 01/19/20 13:58 Temperature Pulse Rate 79 78 78 Respiratory Rate 17 Blood Pressure 231/93 H 240/100 H 240/100 H Pulse Oximetry 98 01/19/20 14:24 01/19/20 14:40 Temperature 99.1 F Pulse Rate 70 79 Respiratory Rate 16 20 Blood Pressure 220/100 H 172/91 H Pulse Oximetry 96 Pt admitted to room 223 from ED at 1440. Pt is AO x4 and making his needs known with clear speech. R facial droop noted. 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 He scoots himself from gurney to bed and is able to answer admission questions. at bedside states she noticed his speech is slurred, had right face droop and frequent falls at home. Educated pt and to fall risk, use of call light and instructed to wait for assistance before getting OOB. Oriented to environment, routine, plan of care. Both pt and verbalize understanding. Call light in easy reach.
--- NOTE | 2020-01-19 16:46 | P.HP_ITS ---
History of Present Illness History of Present Illness Date Patient Seen: 01/19/20 Time Patient Seen: 16:49 Chief complaint: dizziness, falls, slurring speech, mouth droop Narrative: Bradley Jackson is a 65-year-old male with a past medical history of type 2 diabetes, hypertension, hyperlipidemia, prior pre-auricular rare malignancy s/p radiation, prior CVA per medical records, and prior brain aneurysm with bleeding who presented with dysarthria and right-sided facial droop since yesterday morning. Patient reports about 2 days ago he began to notice difficulties with ambulation and imbalance, but denies any focal weakness, numbness, or tingling. did not notice anything other than he was ?acting weird ?until yesterday when she noted him to have a right-sided facial droop and was slurring his words. She asked him to come into the emergency room, but he did not yesterday. With continued symptoms today he decided to seek medical care. He denies any palpitations, shortness of breath, lower extremity edema. He denies headaches. He denies any nausea, or vomiting. did not notice any focal weakness, and patient did not complain of numbness but seemingly had a more difficult time walking. He typically uses a cane at baseline. 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 In the emergency room, patient was hypertensive, but remainder vital signs are unremarkable. Initial laboratory findings of his CBC were unremarkable, as were coagulation studies. Chemistry showed a glucose of 240, but wore otherwise unremarkable. He had a negative troponin. COVID-19 testing was negative. Initial head CT did not show evidence of hemorrhage but did note a subacute to remote infarction involving the right parietal region which would not correlate with the patient's right-sided symptoms. Initial stroke scale was 1. Patient was given 324 mg of aspirin. He was admitted to Medicine under inpatient status for acute CVA. MRI is ordered and currently pending. Patient History Medical History Cerebral aneurysm (Resolved) Cerebrovascular accident (CVA) of thalamus (Resolved 05/2009) Chicken pox (Resolved) Diabetes mellitus (Chronic) Foot fracture, left (Resolved) Fracture of right lower extremity (Resolved) Hyperlipidemia (Chronic) Hypertension (Chronic) Squamous cell carcinoma of skin of scalp and neck (Resolved 06/2017) Testicular cancer (Resolved 1997) Surgical History History of orchiectomy, unilateral (Resolved 1997) History of orthopedic surgery (Resolved) History of squamous cell carcinoma excision (Resolved 06/2017) Family & Social History Family History Father Cancer Heart disease Diabetes mellitus Grandfather Heart disease Grandmother Stroke Mother Hypertension Asthma Social History: household members spouse Prior Living Arrangements House Safety & Behavioral: Feels Safe in Current Yes Environment Been Physically Hurt or No Threatened By a Person Suicidal Ideation Description None Tobacco & Substance use: Tobacco type cannabis/marijuana Smoking Status Current every day smoker alcohol intake never Substance Use Type marijuana Meds Home Medications and Allergies Home Medications Medication Instructions Recorded Confirmed Type aspirin 81 mg tablet,delayed 81 mg PO QAM 05/05/19 01/19/20 History release verapamil 180 mg tablet,extended 180 mg PO BID #180 tab 11/03/19 01/19/20 Rx release hydralazine 50 mg tablet 50 mg PO QID #360 tab 11/08/19 01/19/20 Rx losartan 100 mg PO QAM 01/19/20 01/19/20 History Allergies Allergy/AdvReac Type Severity Reaction Status Date / Time No Known Drug Allergies Allergy Verified 10/11/19 16:14 Review of Systems Review of Systems Narrative: All other systems reviewed with the patient and are negative unless otherwise stated. Exam Vital Signs (past 8 hours): - 01/19/20 12:30 01/19/20 12:31 01/19/20 12:32 Temperature 99.0 F Pulse Rate 86 82 84 Respiratory Rate 21 22 Blood Pressure 218/94 H 218/94 H Pulse Oximetry 99 99 01/19/20 12:52 01/19/20 13:00 01/19/20 13:30 Temperature Pulse Rate 80 80 80 Respiratory Rate Blood Pressure 210/92 H 208/91 H Pulse Oximetry 98 98 98 01/19/20 13:31 01/19/20 13:53 01/19/20 13:58 Temperature Pulse Rate 79 78 78 Respiratory Rate 17 Blood Pressure 231/93 H 240/100 H 240/100 H Pulse Oximetry 98 01/19/20 14:24 01/19/20 14:40 Temperature 99.1 F Pulse Rate 70 79 Respiratory Rate 16 20 Blood Pressure 220/100 H 172/91 H Pulse Oximetry 96 Oxygen Delivery Method Room Air Oxygen Flow Rate 0 Narrative Exam Narrative: GENERAL APPEARANCE: Well developed, well nourished, in no acute distress. SKIN: Inspection of the skin reveals no rashes, ulcerations or petechiae. HEENT: Very minimal right-sided asymmetry secondary to prior radiation and brain tumor, right eye is fixed superior and laterally, oropharynx is clear and mucous membranes are moist, neck is supple without adenopathy NECK: Supple and symmetric. There was no thyroid enlargement, and no tenderness, or masses were felt. CHEST: Normal AP diameter and normal contour without any kyphoscoliosis. LUNGS: Auscultation of the lungs revealed no wheezes, rhonchi, or rales. CARDIOVASCULAR: There was a regular rate and rhythm with a 3/6 systolic murmur but no rubs or gallops. Peripheral pulses were 2+ and symmetric. ABDOMEN: Soft and nontender with normal bowel sounds. No ascites was noted. MUSCULOSKELETAL: There was no tenderness or effusions noted. Muscle strength and tone were normal. EXTREMITIES: No cyanosis, clubbing or edema. NEUROLOGIC: Alert and oriented x 3. Normal affect. Strength is +5/5 in the Upper Extremities and Lower Extremities Bilaterally. Sensation to touch was normal. There is a subtle facial asymmetry on the right that improved with smile. Objective ECG Impression: Normal sinus rhythm without any significant ST or T-wave abnormalities. Mild QT prolongation with a QTC of 483. Labs Result Diagrams: 01/19/20 12:45 01/19/20 12:45 Labs: Laboratory Results - last 24 hr 01/19/20 01/19/20 01/19/20 12:45 12:45 12:45 WBC 7.9 RBC 4.74 Hgb 13.9 Hct 40.4 L MCV 85.3 MCH 29.3 MCHC 34.4 RDW 14.4 Plt Count 231 Neut % (Auto) 85.4 H Lymph % (Auto) 7.9 L [place] % (Auto) 5.9 Eos % (Auto) 0.5 L Baso % (Auto) 0.3 Neut # (Auto) 6700 Lymph # (Auto) 600 L [place] # (Auto) 500 Eos # (Auto) 0 Baso # (Auto) 0 PT 12.9 H INR 1.1 APTT 27 Sodium 140 Potassium 3.6 Chloride 106 Carbon Dioxide 27 BUN 24 H Creatinine 1.13 Estimated GFR > 60.0 BUN/Creatinine Ratio 21.2 Glucose 240 H Calcium 8.9 Total Bilirubin 0.7 AST 18 ALT 19 Alkaline Phosphatase 43 Total Creatine Kinase 83 CK-MB (CK-2) TNP CK-MB (CK-2) Rel Index TNP Troponin I < 0.012 Total Protein 7.1 Albumin 4.3 Globulin 2.8 Albumin/Globulin Ratio 1.5 COVID-19 PCR 01/19/20 13:28 WBC RBC Hgb Hct MCV MCH MCHC RDW Plt Count Neut % (Auto) Lymph % (Auto) [place] % (Auto) Eos % (Auto) Baso % (Auto) Neut # (Auto) Lymph # (Auto) [place] # (Auto) Eos # (Auto) Baso # (Auto) PT INR APTT Sodium Potassium Chloride Carbon Dioxide BUN Creatinine Estimated GFR BUN/Creatinine Ratio Glucose Calcium Total Bilirubin AST ALT Alkaline Phosphatase Total Creatine Kinase CK-MB (CK-2) CK-MB (CK-2) Rel Index Troponin I Total Protein Albumin Globulin Albumin/Globulin Ratio COVID-19 PCR Negative Assessment & Plan Assessment & Plan narrative: Bradley Jackson is a 65-year-old male with a past medical history of type 2 diabetes, hypertension, hyperlipidemia, prior brain tumor status post brain radiation, prior CVA per medical records, and prior brain aneurysm with bleeding who presented with dysarthria and right-sided facial droop since yesterday morning. 1. Right-sided facial droop, acute, present on admission -differential is broad given this patient's history. Initial head CT did not show evidence of hemorrhage but did note a subacute to remote infarction involving the right parietal region which would not correlate with the patient's right-sided symptoms. Believe this most likely to be in acute CVA, differential given his history of brain radiation includes SMART syndrome, TIA, hypertension, or partial seizure. NIHSS of 1. -MR stroke protocol has been ordered, currently pending -will obtain echocardiogram and keep on telemetry to evaluate for possibility of atrial fibrillation given infarcts possibly in multiple vascular distributions. -will continue on home aspirin, given 324 mg. Will hold on additional Plavix giv en his history of brain bleeding and prior radiation. -will further risk stratify with A1c, TSH, and fasting lipid panel. -will start on statin therapy -stroke scale qshift 2. Type 2 diabetes, chronic, active -patient reports being diet controlled and is not currently on medications. Admission glucose is 230. Will continue fingersticks with sliding scale insulin as needed. A1c has been ordered. 3. Hypertension, chronic, active -patient with severely elevated blood pressures in the 200s on admission. Improved to [address] floor. Will allow for permissive hypertension overnight given likelihood of acute CVA. Will restart his home medications including hydralazine and verapamil this evening as his symptoms did start yesterday. Patient reports severely elevated blood pressures at home and recently starting hydralazine at the direction of his primary care provider, Dr. Cheng. Will likely need to make medication adjustment prior to discharge. 4. History of malignancy - history of pilomatrical carcinoma s/p radiation. Unclear if his radiation risk to his brain given proximity. Depending on MRI results may need further clarification if concern for SMART syndrome. 5. History of prior intracerebral aneurysm with hemorrhagic stroke Code: Full, surrogate decision maker the patient's states is his Dispo: Admitted under inpatient status this is stay is expected to exceed 2 midnights Scores NIHSS Level of Conciousness: Alert, keenly responsive Ask month/age: Answers both questions correctly. Open/close eyes, close hand: Performs both tasks correctly Best gaze horizontal: Normal (deviation is chronic on the R per patient.) Visual retana: No visual loss (chronic R symptoms. ) Facial palsy: Minor paralysis, flattened nasolabial fold, asymmetry on smiling Left arm drift: No drift for full 10 sec Right arm drift: No drift for full 10 sec Left leg drift: No drift for full 5 sec Right leg drift: No drift for full 5 sec Limb ataxia: Absent Sensory on face/arms/legs: Normal, no sensory loss Best language: No aphasia, normal Dysarthria: Normal Extinction or inattention: No abnormality Total NIH Stroke scale score: 1
--- NOTE | 2020-01-19 17:25 | DI.ECHO.S_ITS ---
[place] [facility]---------+ [facility] +---------+ : : [address] : : : : [id number] : : : : Phone: [phone]+ Echocardiogram Report + + :Name: CHRIS CABRERA Study Date: 01/20/2020 Height: 67 in : :[facility] Weight: 160 lb : : Gender: Male BSA: 1.8 m2 : :: 1955 Age: 65 yrs BP: 184/98 mmHg: :Reason For Study: CVA : :Ordering Physician: HOSPITALIST, : :HARVEY Performed By: Emmie Lau : :Referring: ONEIL GILBERT : + + Interpretation Summary The left ventricle is normal in size. Left ventricular ejection fraction is estimated to be 70 +/- 5%. No LV thrombus. The right ventricle is normal in size and function. Injection of contrast documented no interatrial shunt. There is mild aortic valve sclerosis. There is mildly reduced leaflet mobility. There is no hemodynamically significant valvular aortic stenosis. Procedure: A two-dimensional transthoracic echocardiogram with color flow and Doppler was performed. The study quality was technically adequate. There is no prior echocardiogram noted for this patient. A saline contrast injection was performed to assess for cardiac shunting. The injection was performed through an intravenous line in the left arm. The patient was in sinus rhythm with heart rates between 67-94 bpm during the exam. Left Ventricle: The left ventricle is normal in size. Left ventricular wall thickness is borderline increased. There is no thrombus. Left ventricular ejection fraction is estimated to be 70 +/- 5%. There are no focal wall motion abnormalities. Diastolic parameters suggest a relaxation abnormality of the left ventricle, consistent with probable normal filling pressures. Right Ventricle: The right ventricle is normal in size and function. Atria: Both atria are normal in size. There is no Doppler evidence for an interatrial shunt. Injection of contrast documented no interatrial shunt. Mitral Valve: The mitral valve leaflets appear mildly thickened, but open well. There is mild mitral annular calcification. The mitral valve leaflets are mildly calcified. The mitral valve chordae are thickened and/or calcified. There is trace mitral regurgitation. Aortic Valve: The aortic valve is mildly calcified. There is mild aortic valve sclerosis. There is mildly reduced leaflet mobility. There is no hemodynamically significant valvular aortic stenosis. No aortic regurgitation is present. Tricuspid Valve: The tricuspid valve is not well visualized, but is grossly normal. Pulmonary artery pressures cannot be estimated because of the lack of a measurable TR jet velocity. There is trace tricuspid regurgitation. Pulmonic Valve: The pulmonic valve is not well seen, but is grossly normal. There is no pulmonic valvular regurgitation. Great Vessels: The aortic root is normal size. The dimensions of the ascending aorta are normal. The inferior vena cava was not visualized. Pericardium/ Pleura There is no pericardial effusion. There is no pleural effusion. MMode/2D Measurements & Calculations LVIDd: 3.8 cm LVOT diam: 2.1 cm LVIDs: 2.6 cm Ao root diam: 3.0 cm FS: 31.1 % asc Aorta Diam: 3.0 cm EPSS: 0.76 cm Ao Arch Diam (Prox Trans): 3.0 cm IVSd: 1.1 cm LVPWd: 1.0 cm LV sexton. diameter/BSA (cm/m^2): 2.1 LV sys. diameter/BSA (cm/m^2): 1.4 LA A2 area: 18.1 cm2 RA long axis: 5.2 cm LA A4 area: 16.6 cm2 RA area: 15.3 cm2 LA length (vol): 5.1 cm RA vol: 38.6 ml LA vol: 50.1 ml RA : 21.0 ml/m2 LA vol index: 27.2 ml/m2 RVD1 (basal): 3.7 cm TAPSE: 2.9 cm Doppler Measurements & Calculations Ao V2 max: 226.1 cm/sec LVOT Max Nilo: 138.0 cm/sec Ao V2 mean: 140.5 cm/sec LV V1 max P.6 mmHg Ao max P.5 mmHg LV V1 VTI: 26.3 cm Ao mean P.6 mmHg TERESITA(I,D): 2.3 cm2 Ao V2 VTI: 37.4 cm TERESITA(V,D): 2.0 cm2 sev ratio: 0.70 TERESITA indexed to BSA (cm^2/m^2): 1.3 MV E max nilo: 117.9 cm/sec PA V2 max: 104.8 cm/sec MV A max nilo: 129.6 cm/sec PA V2 mean: 73.6 cm/sec MV E/A: 0.91 PA mean P.5 mmHg Med Peak E' Nilo: 8.3 cm/sec PA pr(Accel): 22.5 mmHg E/E' med: 14.3 Lat Peak E' Nilo: 9.4 cm/sec E/E' lat: 12.5 E/e' average: 13.4 MV dec time: 0.22 sec [facility] 87.2 ml Reading Physician:03:33 PM
[2020-01-19 18:57] LABS: UR Morphine/Opiate cutoff 300 Negative (Negative); Ur Creatinine Normal (Normal); Ur Specific Gravity Normal (Normal); Urine Amphetamines Negative (Negative); Urine Barbiturates Negative (Negative); Urine Benzodiazepines Negative (Negative); Urine Cocaine Negative (Negative); Urine MDMA Negative (Negative); Urine Methadone Negative (Negative); Urine Methamphetamines Negative (Negative); Urine Oxycodone Negative (Negative); Urine Phencyclidine Negative (Negative); Urine Tetrahydrocannabinol Positive (Negative); Urine Tricyclic Antidepressant Negative (Negative); Urine pH Normal (Normal)
[2020-01-19] MEDS: ATORVASTATIN 20 MG TABLET 40 MG PO (21:09)
[2020-01-19] MEDS: HYDRALAZINE 25 MG TABLET 50 MG PO (21:09)
[2020-01-19] MEDS: VERAPAMIL SR 180 MG TABLET PO (21:10)
[2020-01-19] MEDS: INFLUENZA VACCINE 0.5 ML SYRINGE IM (21:14)
--- NOTE | 2020-01-19 22:18 | PC.NURSE ---
Pt most recent BP 190/91 HR 73. MARKET INTELLIGENCE CONSULTANT Tao aware. Pt given all HTN medications. Asymptomatic. Other VS A and O x 4. Able to eat and drink, toilet.
--- NOTE | 2020-01-19 22:24 | PC.NURSE ---
Pt NIH this shift is 2, for speech and L arm drift.
[2020-01-20] VITALS (16 sets, daily range): BP systolic 105–210; BP diastolic 63–98; PULSE 57–87; RESP 14–17; TEMP 35.9–37.6; O2SAT 95–98
[2020-01-20 08:41] LABS: Add Manual Diff / Slide Review NO; Basophils Absolute Auto 0 /uL (0-100); Basophils Percent Auto 0.5 % (0-2); Eosinophils Absolute Auto 100 /uL (0-450); Eosinophils Percent Auto 1.3 % (2-4); Hemoglobin 13.6 g/dL (13.5-17.5); Lymphocytes Absolute Auto 1200 /uL (1100-4500); Lymphocytes Percent Auto 14.5 % (25-40); Mean Corpuscular HGB Conc 34.8 % (30-36); Mean Corpuscular Hemoglobin 29.4 PG (26-34); Mean Corpuscular Volume 84.7 fL (80-100); Monocytes Absolute Auto 700 /uL (0-900); Monocytes Percent Auto 8.2 % (3-14); Neutrophils Absolute Auto 6300 /uL (1500-7000); Neutrophils Percent Auto 75.5 % (50-75); Platelet Count 215 X10^3/uL (150-400); Red Cell Distribution Width 14.2 % (11.6-14.8); White Blood Cell Count 8.3 X10^3/uL (4.5-11.0)
[2020-01-20 08:55] LABS: Alanine Aminotransferase 17 IU/L (<50); Albumin Globulin Ratio 1.4 (1.0-2.8); Alkaline Phosphatase 41 U/L (38-126); Aspartate Aminotransferase 16 IU/L (17-59); BUN Creatinine Ratio 19.4 (6-22); Bilirubin Total 0.7 mg/dL (0.2-1.3); Bilirubin Unconjugated 0.6 mg/dL (0.0-1.1); Blood Urea Nitrogen 21 mg/dL (9-20); Calcium 8.6 mg/dL (8.4-10.2); Carbon Dioxide 27 mmol/L (22-32); Chloride 107 mmol/L (98-107); Estimated Glomerular Filt Rate > 60.0 mL/min (>60); Globulin 2.8 g/dL (1.7-4.1); Glucose 125 mg/dL (80-110); HEMOLYSIS < 15 (0-50); Magnesium 2.1 mg/dL (1.6-2.3); Potassium 3.4 mmol/L (3.4-5.1); Sodium 140 mmol/L (137-145); Total Protein 6.8 g/dL (6.3-8.2)
[2020-01-20] MEDS: HYDRALAZINE 25 MG TABLET 50 MG PO ×2 (08:59→13:12)
[2020-01-20] MEDS: ASPIRIN EC 81 MG TABLET PO (08:59)
[2020-01-20] MEDS: ENOXAPARIN 40 MG/0.4 ML SYRINGE SUBCUT (08:59)
[2020-01-20] MEDS: LOSARTAN 50 MG TABLET 100 MG PO (09:00)
[2020-01-20] MEDS: VERAPAMIL SR 180 MG TABLET PO (09:00)
[2020-01-20] MEDS: SODIUM CHLORIDE 0.9% FLUSH 10 ML IV ×2 (09:00→21:19)
[2020-01-20 09:02] LABS: Hemoglobin A1C% w Est Avg Glu 6.5 % (4.0-6.0)
[2020-01-20 09:45] LABS: TSH w/ Reflex to FT4 1.47 uIU/mL (0.47-4.68)
--- NOTE | 2020-01-20 11:20 | PT.IIE ---
Surgical History (Last Reviewed 01/19/20 @ 14:02 by Naomi George DO) History of orchiectomy, unilateral (Resolved 1997) History of orthopedic surgery (Resolved) History of squamous cell carcinoma excision (Resolved 06/2017) Medical History (Last Reviewed 01/19/20 @ 14:02 by Naomi George DO) Cerebral aneurysm (Resolved) Cerebrovascular accident (CVA) of thalamus (Resolved 05/2009) Chicken pox (Resolved) Diabetes mellitus (Chronic) Foot fracture, left (Resolved) Fracture of right lower extremity (Resolved) Hyperlipidemia (Chronic) Hypertension (Chronic) Squamous cell carcinoma of skin of scalp and neck (Resolved 06/2017) Testicular cancer (Resolved 1997) Physical Therapy Inpatient Evaluation/Re-Eval M1 PT/OT-IP Prior Functional Status Start: 01/20/20 14:24 Freq: NEEDED Status: Active Protocol: Document 01/20/20 11:20 AB (Rec: 01/20/20 14:40 AB [id number]) Medical Review Prior Functional Status Medical History Reviewed Yes Communication able to make needs known Mobility and Gait per spouse: pt is modified independent with all mobilities and ambulation without AD but uses SPC for outdoor mobility Social History Household Members spouse Living Arrangements House Number of Floors (Floors) Two Floors Number of Stairs To Enter/Railing? 2 steps to enter with B rails; pt can just stay on main level of the house but usually goes upstairs where their kittens are and has 12 steps with L rail ascending to get there Home Environment Walk in Shower Home Equipment Front Wheel Walker,Four Wheel Walker,Straight Cane,Grab Bars In Shower M2 PT-IP Current Condition Start: 01/20/20 14:24 Freq: NEEDED Status: Active Protocol: Document 01/20/20 11:20 AB (Rec: 01/20/20 14:40 AB [email or web address]) Physical Therapy Current Condition Current Condition Evaluation Date 01/20/20 Treatment Diagnosis CVA; difficulty in walking Onset Date 01/19/20 Precautions Other Precautions falls M3 PT-IP Subjective Start: 01/20/20 14:24 Freq: NEEDED Status: Active Protocol: Document 01/20/20 11:20 AB (Rec: 01/20/20 14:40 AB [email or web address]) Subjective Physical Therapy Visit Type Type Initial Evaluation Visit Start Time 11:20 Visit Stop Time 12:40 Total Visit Minutes 36 Notes pt seen for split visits: 1120 -1131 am and 1215 to 1240 pm Number of BAGGAGE AGENT SUPERVISOR Visits 0 Physical Therapy Visit Comments Patient Comments pt is agreeable to do PT Therapy Pain Assessment Pain Present Pain Present Denied Pain M4 PT-IP Mobility and Gait Start: 01/20/20 14:24 Freq: NEEDED Status: Active Protocol: Document 01/20/20 11:20 AB (Rec: 01/20/20 14:40 AB [email or web address]) PT-Bed Mobility Assessment Supine to Sit Supine to Sit Standby Assistance Sit to Supine Sit to Supine Standby Assistance PT-Transfer Assessment Sit to and From Stand Sit to and from Stand Minimal Assistance,1 Person Assistance,Use of Upper Extremities Equipment Transfer Assistive Device None,Gait Belt,Straight Cane Orthotic/Prosthetic Devices or Brace: No Transfers Transfer Destination Bed Transfer Ability Level of Assist Minimal Assistance,1 Person Assistance,Use of Upper Extremities Comments Mobility Comments pt in bed and pouse in room with pt. pt stated that he is really tired. completed supine to sit SBA. pt is impulsive and educated on safety and slowing down. completed sit to stand CGA and ambulated without AD in room min A and cues with (+) LOB x 3. assessed ambulation using SPC in room ~ 20 ft still continues to have (+) LOB requiring min A with ambulation using SPC. pt stated that he is not steady because he is very tired exhausted per pt. pt requested to go back to bed. completed sit to supine SBA. positioned pt in bed. call light and table placed within reach. educated pt and spouse regarding safety and current mobility leve. recommending use of FWW at this time and pt and spouse agreed. educated spouse on how to assist pt and how to use safety belt. spouse is receptive to recommendations and stated that she will be with pt whenever he gets up and will have him use the FWW. also able to counter demonstrate donning/doffing of safety belt . Gait Assessment Gait Gait Assistance Required: Minimum Assistance,1 Person Assist Distance (Feet) 30 Able to Maintain Weight Bearing Status Yes During Gait Assistive Devices Assistive Device None,Gait Belt,Straight Cane Gait Deviations General Gait Pattern Antalgic,Step-to Gait Factors Limiting Gait Function Factors Limiting Gait Function Decreased Activity Tolerance, Decreased Strength,Difficulty Following Directions,Pain,Poor Balance,Poor Safety Awareness Comments Gait Comments presents with unsteady gait and (+) LOB without AD and even with use of SPC. pt and spouse are aware of safety recommendations and use of FWW at this time and both agreed. Stair Climbing Assessment Comments Stair Climbing Comments unable to complete as pt requested to rest. PT-Balance Assessment Sitting Balance and Reactions Static Sitting Balance Ability Good Dynamic Sitting Balance Ability Good Standing Balance and Reactions Static Standing Balance Ability Fair Dynamic Standing Balance Ability Fair Device Used without AD M5 PT-IP Objective Assessments Start: 01/20/20 14:24 Freq: NEEDED Status: Active Protocol: Document 01/20/20 11:20 AB (Rec: 01/20/20 14:40 AB [email or web address]) Orientation Orientation/Cognition Level of Alertness Alert Orientation Name,Place,Situation Language Function Ability Hard of Hearing Safety Awareness Decreased Safety Awareness Memory Description Short Term Impaired Gross Range of Motion Lower Extremity ROM Assessment Within Functional Limits Strength Lower Extremity Strength Assessment Bilaterally Impaired Hip 4/5 Knee 4/5 Muscle Tone Muscle Tone WNL Yes M6 PT-IP Treatment Start: 01/20/20 14:24 Freq: NEEDED Status: Active Protocol: Document 01/20/20 11:20 AB (Rec: 01/20/20 14:40 AB [email or web address]) Physical Therapy Treatment Education Education Provided Safety M7 PT-IP Assessment and Plan Start: 01/20/20 14:24 Freq: NEEDED Status: Active Protocol: Document 01/20/20 11:20 AB (Rec: 01/20/20 14:40 AB [email or web address]) PT Summary Assessment and Plan Potential Rehabilitation Potential Fair Status of Condition at Evaluation Evolving Summary Impairments Pain,ROM,Strength,Balance, Coordination,Sensation, Cognition,Bed Mobility, Transfers,Gait,Activity Tolerance Assessment Summary pt requires min A with mobility and has (+) LOB during ambulation. recommending use of FWW at this time and pt and spouse agreed. pt needs 19/10 assist and spouse stated that she can provide and assist pt at home . pt will need homehealth PT vs outpt PT. Goals Bed Mobility Goal Independent Transfer Goal Standby Assistance,Cane,Front Wheeled Walker Gait Goal Standby Assistance,Cane,Front Wheel Walker Gait Distance 100 Other Goals increase ambulation without AD 100ft SBA up/down 2 steps with B rails SBA; up/down 12 steps L rail SBA Days to Meet Goals 5 Frequency of Treatment Frequency Of Treatment Once a Day Treatment Plan Physical Therapy Treatment Plan Bed Mobility Training,Transfer Training,Gait Training, Therapeutic Exercise,Balance Retraining,Discharge Planning, Hot or Cold Pack,Neuromuscular Re-ed,Coordination Retraining Recommendations To Nursing Amount of Assist Needed 1 Person Assist Discharge Recommendations PT Discharge Recommendations Home with 19/10 Assist,Home Health,Outpatient PT Transportation Needs at Discharge Private Vehicle
--- NOTE | 2020-01-20 11:25 | CM.DANOTE ---
DCP: Case received, EMR reviewed and met with patient. Introduced self and role. , Susy, was also at bedside. Was able to obtain information from patient regarding his baseline activity status at home prior to hospitalization. DCP assessment completed with information currently available. Patient is a 65 year old male who admitted yesterday afternoon to the care of the hospitalist team. PCP: Dr. Cheng. Payer: confirmed: [facility] Medicare. Patient came to the hospital via private vehicle secondary to dizziness, as well as falls and balance issues. Patient has history of CVA, diabetes type 2, as well as a brain tumor. Patient noted subacute ischemic injury to right occipital, but patient has not had weakness on opposite side. During team rounds, Dr. Tucker stated that most likely a TIA. Met with patient and . Discussed rehab. Stated, he really wants to go home. He has not yet worked with P.T. as of yet. Discussed inpatient rehab as well as skilled rehab. Other option discussed with home health, which patient does not object to. Patient and reside here in [place]. P: DCP to continue to follow and will be available for any resources needed. Patient is wanting to go home today, but will see how he does with P.T. Luda Gomez RN/Remote Control Mirror Installer
[2020-01-20] MEDS: hydroCHLOROthiazide 25 MG TABLET PO (13:42)
--- NOTE | 2020-01-20 15:26 | PC.NURSE ---
Echo pending; Tele SR; [facility] 0; ls clear; pt instructed on HTN and hctz
--- NOTE | 2020-01-20 16:00 | OT.IP.EVAL ---
Current Diagnoses Cerebral infarction, unspecified (01/19/20) Past Medical History (Last Reviewed 01/19/20 @ 14:02 by Naomi George DO) Cerebral aneurysm (Resolved) Cerebrovascular accident (CVA) of thalamus (Resolved 05/2009) Chicken pox (Resolved) Diabetes mellitus (Chronic) Foot fracture, left (Resolved) Fracture of right lower extremity (Resolved) Hyperlipidemia (Chronic) Hypertension (Chronic) Squamous cell carcinoma of skin of scalp and neck (Resolved 06/2017) Testicular cancer (Resolved 1997) Surgical History (Last Reviewed 01/19/20 @ 14:02 by Naomi George DO) History of orchiectomy, unilateral (Resolved 1997) History of orthopedic surgery (Resolved) History of squamous cell carcinoma excision (Resolved 06/2017) Occupational Therapy Inpatient Evaluation/Re-Eval M1 PT/OT-IP Prior Functional Status Start: 01/20/20 14:24 Freq: NEEDED Status: Active Protocol: Document 01/20/20 11:20 AB (Rec: 01/20/20 14:40 AB [id number]) Medical Review Prior Functional Status Medical History Reviewed Yes Communication able to make needs known Mobility and Gait per spouse: pt is modified independent with all mobilities and ambulation without AD but uses SPC for outdoor mobility Social History Household Members spouse Living Arrangements House Number of Floors (Floors) Two Floors Number of Stairs To Enter/Railing? 2 steps to enter with B rails; pt can just stay on main level of the house but usually goes upstairs where their kittens are and has 12 steps with L rail ascending to get there Home Environment Walk in Shower Home Equipment Front Wheel Walker,Four Wheel Walker,Straight Cane,Grab Bars In Shower M1 PT/OT-IP Prior Functional Status Start: 01/20/20 16:37 Freq: NEEDED Status: Active Protocol: Document 01/20/20 16:38 RM (Rec: 01/20/20 16:57 RM [id number]) Medical Review Prior Functional Status Medical History Reviewed Yes Communication able to make needs known Mobility and Gait per spouse: pt is modified independent with all mobilities and ambulation without AD but uses SPC for outdoor mobility Activities of Daily Living and IADL's (I) with ADLs, vaccuming, raising cats, and active in his shop building things Social History Household Members spouse Living Arrangements House Number of Floors (Floors) Two Floors Number of Stairs To Enter/Railing? 2 stairs to enter, can function on main level Home Environment Standard Height Toilet,Walk in Shower,Built-In Shower Seat Home Equipment Front Wheel Walker,Four Wheel Walker,Straight Cane,Grab Bars In Shower Employment Status Retired M2 OT-IP Current Condition Start: 01/20/20 16:37 Freq: Status: Active Protocol: Document 01/20/20 16:38 RM (Rec: 01/20/20 16:57 RM [id number]) Occupational Therapy Current Condition Current Condition Evaluation Date 01/20/20 Treatment Diagnosis CVA Diagnosis Onset Date 01/19/20 Weight Bearing Status Weight Bearing Status Weight Bear as Tolerated M3 OT- IP Subjective and Pain Start: 01/20/20 16:37 Freq: Status: Active Protocol: Document 01/20/20 16:38 RM (Rec: 01/20/20 16:57 RM [id number]) OT- Subjective Occupational Therapy Visit Type Type Initial Evaluation Visit Start Time 16:00 Visit Stop Time 16:30 Total Visit Minutes 30 Occupational Therapy Visit Comments Patient Comments I just need to sleep. I haven 't slept in two days. Patient/Caregiver Goals Return home with his . OT Pain Assessment Pain When Pain Assessed At Rest Pain Present Pain Present Denied Pain M4 OT- IP ADL's Start: 01/20/20 16:37 Freq: Status: Active Protocol: Document 01/20/20 16:38 RM (Rec: 01/20/20 16:57 RM [id number]) OT ADL-Toileting General Evaluation Toileting Ability Standby Assistance OT ADL-Bathing Comments OT Bathing Comments Declined shower assessment M6 OT- IP Functional Cognition Start: 01/20/20 16:37 Freq: Status: Active Protocol: Document 01/20/20 16:38 RM (Rec: 01/20/20 16:57 RM [id number]) Cognitive Factors Limiting Selfcare Function Cognitive Ability Level of Alertness Alert Patient Orientation Name,Month,Year,Day of Week, Place,Situation Safety Awareness Underestimates Need for Assistance Executive Function Ability Unable to Filter Distractions Cognitive Comments Cognitive Assessment Comments reports some giddiness after prior aneurysm and noticied some now as well. Recommend discussing return to driving w/ MD. OT- Vision and Hearing OT- Hearing Assessment OT- Hearing Assessment WFL OT- Vision Assessment Visual Acuity WFL Vision Assessment Comments R eye defect M7 OT- IP Mobility and Balance Start: 01/20/20 16:37 Freq: Status: Active Protocol: Document 01/20/20 16:38 RM (Rec: 01/20/20 16:57 RM [id number]) OT- Bed Mobility Assessment Rolling Type of Rolling Log Rolling Level of Assistance Independent Supine to Sit Supine to Sit Assist Independent Sit to Supine Sit to Supine Assist Independent Scooting Scooting to Edge of Bed Independent Scooting Up and Down in Bed Independent OT-Transfer Assessment Sit to and From Stand Sit to and from Stand Standby Assistance Transfers Transfer Ability Standby Assistance Technique Transfer Destination Bed,Toilet Devices Transfer Assistive Devices Straight Cane Comments Mobility Comments Trialed cane in room, however, demonstrates some impulsivity with movement. Would recommend FWW for improved safety. OT- Gait Assessment Gait Gait Assistance Required: Standby Assistance Assistive Devices Assistive Device Straight Cane Comments Gait Ability Comments Trialed cane in room, however, demonstrates some impulsivity with movement. Would recommend FWW for improved safety. OT- Balance Assessment Standing Balance and Reactions Dynamic Standing Balance Ability Fair M8 OT- IP Objective Assessments Start: 01/20/20 16:37 Freq: Status: Active Protocol: Document 01/20/20 16:38 RM (Rec: 01/20/20 16:57 RM [id number]) OT Gross Range of Motion Upper Extremity Range of Motion Assessment Within Functional Limits OT Strength Upper Extremity Strength Assessment Within Functional Limits OT- Coordination Assessment Upper Extremity Finger to Nose Test Within Functional Limits OT-Muscle Tone Assessment Muscle Tone WNL Yes M9 OT- IP Assessment and Plan Start: 01/20/20 16:37 Freq: Status: Active Protocol: Document 01/20/20 16:38 RM (Rec: 01/20/20 16:57 RM [id number]) OT Summary Assessment and Plan Potential Rehabilitation Potential Good Analytic Complexity at Evaluation Low Summary OT Impairments Functional Cognition, Functional Mobility Progress Towards Goals Safe For Discharge Assessment Summary Patient s/p CVA demonstrating some impulsivity. Planning to discharge home with able to provide 24 hr assist. Currently SBA mobilizing in room with home s/u accessible. Anticipate safe to return home with providing SBA. Frequency of Treatment Frequency Of Treatment Discharge Discharge Recommendations OT Discharge Recommendations Home with Assistance Other Discharge Recommendations Recommend f/u w/ MD prior to driving.
--- NOTE | 2020-01-20 16:13 | PM.PN.1 ---
Subjective Subjective Date Patient Seen: 01/20/20 Time Patient Seen: 16:13 Interval history: Bradley Jackson is a 65-year-old male with a past medical history of type 2 diabetes, hypertension, hyperlipidemia, prior pre-auricular rare malignancy s/p radiation, prior CVA per medical records, and prior brain aneurysm with bleeding who presented with dysarthria and right-sided facial droop. His states that today his droop returned slightly and he was unstable. His brain MRI did not show any focal lesions consistent with a right-sided facial droop, but did show a posterior infarct as well as the infarct on the right side of his brain, however he is no left-sided symptoms. His blood pressure, however, remains quite elevated. Will make some medication adjustments. He also complains he has not slept well overnight. He denies numbness or tingling, fever, chills, nausea, vomiting. He felt quite constipated but was able to have a bowel movement this AM. Exam Vital Signs (past 8 hours): - 01/20/20 09:00 01/20/20 13:00 01/20/20 13:45 Temperature 98 F Pulse Rate 87 Respiratory Rate 16 Blood Pressure 175/82 H 210/84 H Pulse Oximetry 95 96 01/20/20 15:29 Temperature Pulse Rate Respiratory Rate Blood Pressure 210/84 H Pulse Oximetry Oxygen Delivery Method Room Air Oxygen Flow Rate 0 Narrative Exam Narrative: GENERAL APPEARANCE: Well developed, well nourished, in no acute distress. SKIN: Inspection of the skin reveals no rashes, ulcerations or petechiae. HEENT: Very minimal right-sided asymmetry secondary to prior radiation and brain tumor, right eye is fixed superior and laterally, oropharynx is clear and mucous membranes are moist, neck is supple without adenopathy NECK: Supple and symmetric. There was no thyroid enlargement, and no tenderness, or masses were felt. CHEST: Normal AP diameter and normal contour without any kyphoscoliosis. LUNGS: Auscultation of the lungs revealed no wheezes, rhonchi, or rales. CARDIOVASCULAR: There was a regular rate and rhythm with a 3/6 systolic murmur but no rubs or gallops. Peripheral pulses were 2+ and symmetric. ABDOMEN: Soft and nontender with normal bowel sounds. No ascites was noted. MUSCULOSKELETAL: There was no tenderness or effusions noted. Muscle strength and tone were normal. EXTREMITIES: No cyanosis, clubbing or edema. NEUROLOGIC: Alert and oriented x 3. Normal affect. Strength is +5/5 in the Upper Extremities and Lower Extremities Bilaterally. Sensation to touch was normal. There is a subtle facial asymmetry on the right that improved with smile. Objective Labs Result Diagrams: 01/20/20 08:30 01/20/20 08:30 Labs: Laboratory Results - last 24 hr 01/19/20 01/20/20 01/20/20 18:45 08:30 08:30 WBC 8.3 RBC 4.60 Hgb 13.6 Hct 39.0 L MCV 84.7 MCH 29.4 MCHC 34.8 RDW 14.2 Plt Count 215 Neut % (Auto) 75.5 H Lymph % (Auto) 14.5 L [place] % (Auto) 8.2 Eos % (Auto) 1.3 L Baso % (Auto) 0.5 Neut # (Auto) 6300 Lymph # (Auto) 1200 [place] # (Auto) 700 Eos # (Auto) 100 Baso # (Auto) 0 Sodium 140 Potassium 3.4 Chloride 107 Carbon Dioxide 27 BUN 21 H Creatinine 1.08 Estimated GFR > 60.0 BUN/Creatinine Ratio 19.4 Glucose 125 H D Hemoglobin A1c Calcium 8.6 Magnesium 2.1 Total Bilirubin 0.7 Conjugated Bilirubin 0.0 Unconjugated Bilirubin 0.6 AST 16 L ALT 17 Alkaline Phosphatase 41 Total Protein 6.8 Albumin 4.0 Globulin 2.8 Albumin/Globulin Ratio 1.4 TSH U Opiates 300ng/mL cut Negative Ur Oxycodone Screen Negative Urine Methadone Screen Negative Ur Barbiturates Screen Negative U Tricyclic Antidepress Negative Ur Phencyclidine Scrn Negative Ur Amphetamines Screen Negative U Methamphetamines Scrn Negative Ur MDMA Scrn (Ecstasy) Negative U Benzodiazepines Scrn Negative Urine Cocaine Screen Negative U Marijuana (THC) Screen Positive H 01/20/20 01/20/20 08:30 08:30 WBC RBC Hgb Hct MCV MCH MCHC RDW Plt Count Neut % (Auto) Lymph % (Auto) [place] % (Auto) Eos % (Auto) Baso % (Auto) Neut # (Auto) Lymph # (Auto) [place] # (Auto) Eos # (Auto) Baso # (Auto) Sodium Potassium Chloride Carbon Dioxide BUN Creatinine Estimated GFR BUN/Creatinine Ratio Glucose Hemoglobin A1c 6.5 H Calcium Magnesium Total Bilirubin Conjugated Bilirubin Unconjugated Bilirubin AST ALT Alkaline Phosphatase Total Protein Albumin Globulin Albumin/Globulin Ratio TSH 1.47 U Opiates 300ng/mL cut Ur Oxycodone Screen Urine Methadone Screen Ur Barbiturates Screen U Tricyclic Antidepress Ur Phencyclidine Scrn Ur Amphetamines Screen U Methamphetamines Scrn Ur MDMA Scrn (Ecstasy) U Benzodiazepines Scrn Urine Cocaine Screen U Marijuana (THC) Screen Assessment & Plan Assessment & Plan narrative: Bradley Jackson is a 65-year-old male with a past medical history of type 2 diabetes, hypertension, hyperlipidemia, prior brain tumor status post brain radiation, prior CVA per medical records, and prior brain aneurysm with bleeding who presented with dysarthria and right-sided facial droop. His MRI was negative for a L sided infarct but did show a posterior lesion and he does seemingly require more assistance with physical therapy due to unsteadiness. 1. Right-sided facial droop, acute, present on admission -differential is broad given this patient's history. Initial head CT did not show evidence of hemorrhage but did note a subacute to remote infarction involving the right parietal region which would not correlate with the patient's right-sided symptoms. MRI further did not reveal an infarct corresponding to R facial droop but does show a posterior lesion. differential given his history of brain radiation includes SMART syndrome, TIA, hypertension, or partial seizure. NIHSS remains 1. -MR stroke protocol as noted above. -TTE pending. -will continue on home aspirin, given 324 mg. Will hold on additional Plavix given his history of brain bleeding and prior radiation. -A1c 6.5%, TSH unremarkable. -will start on statin therapy -stroke scale qshift 2. Type 2 diabetes, chronic, active -patient reports being diet controlled and is not currently on medications. Admission glucose is 230. Will continue fingersticks with sliding scale insulin as needed. A1c shows control at 6.5%. 3. Hypertension, chronic, active -patient with severely elevated blood pressures in the 200s on admission. Intermittently improved to lowest in the 150s but consistently ranging from 180-200. Will rearrange to 4 different classes of medications in hopes of controlling this. Patient will be on max dose losartan 100 mg, have now started HCTZ, nifedipine 30 mg b.i.d., and will start metoprolol this evening. If this regimen does not improve his blood pressure will need to consider a workup for resistant hypertension. 4. History of malignancy - history of pilomatrical carcinoma s/p radiation. Unclear if his radiation risk to his brain given proximity. Depending on MRI results may need further clarification if concern for SMART syndrome. 5. History of prior intracerebral aneurysm with hemorrhagic stroke 6. Posterior CVA, acute present on admission - continue PT/OT. - continue ASA, lipitor 7. insomina - patient with mild anxiety and unable to sleep, will add an as needed dose of ativan nightly. He usually has marijuana at home to fall asleep. Code: Full, surrogate decision maker the patient's states is his Dispo: Admitted under inpatient status this is stay is expected to exceed 2 midnights
[2020-01-20] MEDS: NIFEdipine 30 MG TAB ER PO ×2 (16:22→20:09)
[2020-01-20] MEDS: INSULIN ASPART 100 UNIT/ML INSULN PEN SUBCUT ×2 (17:04→20:58)
--- NOTE | 2020-01-20 19:25 | PC.NURSE ---
Per Dr Tucker ok to hold off on vitals and pt check during the hotel night auditor, unless pt gets up to use restroom. Pt very tired and is having a hardtime sleeping.
[2020-01-20] MEDS: METOPROLOL ER 25 MG TABLET PO (20:09)
[2020-01-20] MEDS: ATORVASTATIN 20 MG TABLET 40 MG PO (20:09)
[2020-01-20] MEDS: MELATONIN 3 MG TABLET 6 MG PO (20:09)
[2020-01-21 04:49] VITALS: BP 145/72; PULSE 73; RESP 16; TEMP 37.1; O2SAT 96
[2020-01-21 05:17] LABS: Blood Urea Nitrogen 26 mg/dL (9-20); Calcium 8.7 mg/dL (8.4-10.2); Carbon Dioxide 29 mmol/L (22-32); Chloride 104 mmol/L (98-107); Estimated Glomerular Filt Rate > 60.0 mL/min (>60); Glucose 149 mg/dL (80-110); HEMOLYSIS < 15 (0-50); Potassium 3.1 mmol/L (3.4-5.1); Sodium 139 mmol/L (137-145)
[2020-01-21] MEDS: POTASSIUM CHLORIDE 20 MEQ/15 ML UDC 40 MEQ PO (06:15)
[2020-01-21 07:45] VITALS: O2SAT 97
[2020-01-21 08:00] VITALS: BP 152/82; PULSE 75; RESP 16; TEMP 36.8; O2SAT 97
[2020-01-21] MEDS: ENOXAPARIN 40 MG/0.4 ML SYRINGE SUBCUT (08:27)
[2020-01-21] MEDS: METOPROLOL ER 25 MG TABLET PO (08:27)
[2020-01-21] MEDS: LOSARTAN 50 MG TABLET 100 MG PO (08:27)
[2020-01-21] MEDS: NIFEdipine 30 MG TAB ER PO (08:27)
[2020-01-21] MEDS: ASPIRIN EC 81 MG TABLET PO (08:27)
[2020-01-21] MEDS: INSULIN ASPART 100 UNIT/ML INSULN PEN SUBCUT (08:28)
[2020-01-21] MEDS: SODIUM CHLORIDE 0.9% FLUSH 10 ML IV (08:31)
--- NOTE | 2020-01-21 08:58 | P.DS_ITS ---
History of Present Illness History of Present Illness Date Patient Seen: 01/21/20 Time Patient Seen: 08:59 Chief complaint: dizziness, falls, slurring speech, mouth droop Narrative: Bradley Jackson is a 65-year-old male with a past medical history of type 2 diabetes, hypertension, hyperlipidemia, prior pre-auricular rare malignancy s/p radiation, prior CVA per medical records, and prior brain aneurysm with bleeding who presented with dysarthria and right-sided facial droop since yesterday morning. Patient reports about 2 days ago he began to notice difficulties with ambulation and imbalance, but denies any focal weakness, numbness, or tingling. did not notice anything other than he was ?acting weird ?until yesterday when she noted him to have a right-sided facial droop and was slurring his words. She asked him to come into the emergency room, but he did not yesterday. With continued symptoms today he decided to seek medical care. He denies any palpitations, shortness of breath, lower extremity edema. He denies headaches. He denies any nausea, or vomiting. did not notice any focal weakness, and patient did not complain of numbness but seemingly had a more difficult time walking. He typically uses a cane at baseline. 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 In the emergency room, patient was hypertensive, but remainder vital signs are unremarkable. Initial laboratory findings of his CBC were unremarkable, as were coagulation studies. Chemistry showed a glucose of 240, but wore otherwise unremarkable. He had a negative troponin. COVID-19 testing was negative. Initial head CT did not show evidence of hemorrhage but did note a subacute to remote infarction involving the right parietal region which would not correlate with the patient's right-sided symptoms. Initial stroke scale was 1. Patient was given 324 mg of aspirin. He was admitted to Medicine under inpatient status for acute CVA. MRI is ordered and currently pending. Discharge Providers Provider Date of admission: 01/19/20 13:41 Discharge Date: 01/21/20 Primary care physician: Zelalem Cheng MD Consults: 01/19/20 16:20 Consult to Discharge Planning Routine Comment: Consult to Occupational Therapy Evaluate & Treat Comment: Physician Instructions: Evaluate and treat Consult to Physical Therapy Evaluate & Treat Comment: Physician Instructions: Evaluate and Treat Discharge provider: Tomás Tucker DO Summary Hospital Course Discharge Diagnosis: Please see hospital course by problem list noted below: Hospital Course: Bradley Jackson is a 65-year-old male with a past medical history of type 2 diabetes, hypertension, hyperlipidemia, prior brain tumor status post brain radiation, prior CVA per medical records, and prior brain aneurysm with bleeding who presented with dysarthria and right-sided facial droop. His MRI was negative for a L sided infarct but did show a posterior lesion and he does seemingly require more assistance with physical therapy due to unsteadiness. 1. Right-sided facial droop, sub-acute CVA, present on admission -differential is broad given this patient's history. Initial head CT did not show evidence of hemorrhage but did note a subacute to remote infarction involving the right parietal region which would not correlate with the patient's right-sided symptoms. MRI further did not reveal an infarct corresponding to R facial droop but does show a posterior lesion as well as a R sided older infarct. differential given his history of ? brain radiation includes SMART syndrome, TIA, hypertension, or partial seizure. NIHSS remained 1. -MR stroke protocol as noted above. -TTE was unremarkable. -will continue on home aspirin, given 324 mg. Will hold on additional Plavix given his history of brain bleeding and prior radiation. -A1c 6.5%, TSH unremarkable. -started on statin therapy -stroke scale qshift -patient evaluated by physical therapy. 2. Type 2 diabetes, chronic, active -patient reports being diet controlled and is not currently on medications. Admission glucose was 230 possibly related to acute stress. A1c shows control at 6.5%. Continue diet control as an outpatient. 3. Hypertension, chronic, active -patient with severely elevated blood pressures in the 200s on admission. Intermittently improved to lowest in the 150s but consistently ranging from 180- 200. Rearranged to 4 different classes of medications. Final discharge regimen is HCTZ 25 mg daily, losartan 100 mg daily, metoprolol 25 mg BID, and nifedipine 30 mg BID. 4. History of malignancy - history of pilomatrical carcinoma s/p radiation. Unclear if his radiation risk to his brain given proximity. 5. History of prior intracerebral aneurysm with hemorrhagic stroke 6. Posterior CVA, acute present on admission - continue ASA, lipitor Time Spent with Patient Time spent: Greater than 30 minutes Exam Vital Signs (past 8 hours): - 01/21/20 04:49 01/21/20 08:00 Temperature 98.8 F 98.2 F Pulse Rate 73 75 Respiratory Rate 16 16 Blood Pressure 145/72 H 152/82 H Pulse Oximetry 96 97 Oxygen Delivery Method Room Air Oxygen Flow Rate 0 Narrative Exam Narrative: GENERAL APPEARANCE: Well developed, well nourished, in no acute distress. SKIN: Inspection of the skin reveals no rashes, ulcerations or petechiae. HEENT: Very minimal right-sided asymmetry secondary to prior radiation and brain tumor, right eye is fixed superior and laterally, oropharynx is clear and mucous membranes are moist, neck is supple without adenopathy NECK: Supple and symmetric. There was no thyroid enlargement, and no tenderness, or masses were felt. CHEST: Normal AP diameter and normal contour without any kyphoscoliosis. LUNGS: Auscultation of the lungs revealed no wheezes, rhonchi, or rales. CARDIOVASCULAR: There was a regular rate and rhythm with a 3/6 systolic murmur but no rubs or gallops. Peripheral pulses were 2+ and symmetric. ABDOMEN: Soft and nontender with normal bowel sounds. No ascites was noted. MUSCULOSKELETAL: There was no tenderness or effusions noted. Muscle strength and tone were normal. EXTREMITIES: No cyanosis, clubbing or edema. NEUROLOGIC: Alert and oriented x 3. Normal affect. Strength is +5/5 in the Upper Extremities and Lower Extremities Bilaterally. Sensation to touch was normal. There is a subtle facial asymmetry on the right that improved with smile. Objective Labs Result Diagrams: 01/20/20 08:30 01/21/20 04:35 Labs: Laboratory Results - last 24 hr 01/20/20 01/20/20 01/20/20 08:30 08:30 08:30 Sodium 140 Potassium 3.4 Chloride 107 Carbon Dioxide 27 BUN 21 H Creatinine 1.08 Estimated GFR > 60.0 BUN/Creatinine Ratio 19.4 Glucose 125 H D Hemoglobin A1c 6.5 H Calcium 8.6 Magnesium 2.1 Total Bilirubin 0.7 Conjugated Bilirubin 0.0 Unconjugated Bilirubin 0.6 AST 16 L ALT 17 Alkaline Phosphatase 41 Total Protein 6.8 Albumin 4.0 Globulin 2.8 Albumin/Globulin Ratio 1.4 TSH 1.47 01/21/20 04:35 Sodium 139 Potassium 3.1 L Chloride 104 Carbon Dioxide 29 BUN 26 H Creatinine 1.04 Estimated GFR > 60.0 BUN/Creatinine Ratio 25.0 H Glucose 149 H Hemoglobin A1c Calcium 8.7 Magnesium 2.0 Total Bilirubin Conjugated Bilirubin Unconjugated Bilirubin AST ALT Alkaline Phosphatase Total Protein Albumin Globulin Albumin/Globulin Ratio TSH Discharge Plan Discharge Plan Patient Disposition: Home Provider Discharge Comment: You were admitted to the hospital with a right sided facial droop. You were found to have had a stoke which may be affecting your balance. You should continue taking her aspirin as well as a statin medication which is being prescribed. Your blood pressure medicines were rearranged due to severely elevated blood pressures while you were here. Please follow-up with Dr. Cheng next week if possible, you may need continued physical therapy as an outpatient and you should have your potassium recheck along with your blood pressure. Discharge orders & Medications Prescriptions: New atorvastatin 40 mg tablet 40 mg PO BEDTIME 30 Days Qty: 30 RF: 0 nifedipine 30 mg Tablet Extended Release 24hr 30 mg PO BID 30 Days Qty: 60 RF: 0 metoprolol succinate 25 mg Tablet Extended Release 24 Hr 25 mg PO BID 30 Days Qty: 60 RF: 0 hydrochlorothiazide 25 mg tablet 25 mg PO DAILY 30 Days Qty: 30 RF: 0 Continued aspirin 81 mg tablet,delayed release (DR/EC) 81 mg PO QAM RF: 0 losartan 100 mg tablet 100 mg PO QAM RF: 0 Discontinued verapamil 180 mg tablet extended release 180 mg PO BID Qty: 180 RF: 3 hydralazine 50 mg tablet 50 mg PO QID Qty: 360 RF: 1 Follow up/Referrals: Zelalem Cheng MD [Primary Care Provider] - Diet/Activity/Treatments Diet: Diet as Tolerated, Carb-consistent/Diabetic and Low-sodium Activity: As tolerated Visit Report/Discharge Packet Instructions: DI for Stroke-Ischemic Visit Report Forms: Patient Portal/API, Stroke Signs & Symptoms Discharge Data Primary Care Provider: Zelalem Cheng Discharges patient from system. Discharge Date/Time: 01/21/20 11:00
--- NOTE | 2020-01-21 10:50 | CM.DPC ---
DCP Cont: Patient is to be discharging home today. Asked him if he is interested in home health, he declined. Stated that he is independent at home. Will be pursueing outpatient P.T. P: Patient is discharging home today with outpatient P.T. Luda Gomez RN/Pharmacognosy Teacher
--- NOTE | 2020-01-21 11:06 | PC.NURSE ---
Discharge: Pt feels ready to d/c home. MD here to see pt and gave d/c instructions. SS will arrange PT services. Pt has been voiding w/out diff, tolerating his diet. No changes in his strength or sxs of stroke returning. Reviewed d/c packet. Questions answered. Pt d/c home via auto w/spouse.
== END 2020-01-21 11:00 | disposition home or self-care (01) | DRG 66 ==
LOC: ED 13:41 → AC 13:57
PROVIDERS: Admitting Provider Internal Medicine; Emergency Provider Emergency Medicine; Family Provider Student in an Organized Health Care Education/Training Program; PCP Student in an Organized Health Care Education/Training Program; Referring Provider Emergency Medicine; Visit Provider Internal Medicine
DX: I63.9 Cerebral infarction, unspecified (principal); G93.9 Disorder of brain, unspecified; R29.810 Facial weakness; R47.81 Slurred speech; R29.6 Repeated falls; E11.9 Type 2 diabetes mellitus without complications; I10 Essential (primary) hypertension; E78.5 Hyperlipidemia, unspecified; G47.00 Insomnia, unspecified; R47.1 Dysarthria and anarthria; Z86.73 Personal history of transient ischemic attack (TIA), and cerebral infarction without residual deficits; Z85.828 Personal history of other malignant neoplasm of skin; Z85.47 Personal history of malignant neoplasm of testis; Z85.89 Personal history of malignant neoplasm of other organs and systems; Z23 Encounter for immunization
CPT/HCPCS: 36415; 36592; 70450; 70548; 70553; 80048; 80053; 80076; 80305; 82550; 82962; 83036; 83735; 84443; 84484; 85025; 85610; 85730; 87635; 90471; 90656; 93005; 93010; 93306; 96374; 97162; 97165; 97535; 99285; J0360; J1650; Q2038

== ENCOUNTER 2020-05-12 20:56 | Emergency (ER) | payer MEDICARE, SELFPAY ==
[2020-01-22 13:05] VITALS: BMI 25.0
[2020-05-12] VITALS (53 sets, daily range): BP systolic 159–217; BP diastolic 75–115; PULSE 104–156; RESP 14–35; TEMP 37.1; O2SAT 82–100; BMI 27.1
--- NOTE | 2020-05-12 20:59 | DI.CT.S_ITS ---
PROCEDURE: CT CERVICAL SPINE WO CON INDICATIONS: stroke/seizure, fall hitting occiput TECHNIQUE: Noncontrast 3 mm thick sections acquired from the skull base to the T4 level. Sagittal and coronal reformats were then constructed. For radiation dose reduction, the following was used: automated exposure control, adjustment of mA and/or kV according to patient size. COMPARISON: [facility], CT, CT SOFT TISSUE NECK WITH CONTRAST, 02/11/2018, 9:58. FINDINGS: Image quality: Excellent. Bones: No acute fractures or dislocations. No acute compression fractures of the vertebral bodies. Craniocervical junction is intact. C1-C2 relationship is preserved. Visualized superior ribs are intact. Stable appearance of sclerotic focus involving the right C6 pedicle and left T4 pedicle. Multilevel cervical spondylitic changes most severe at C6-7. Soft tissues: Prevertebral soft tissues are normal in thickness. No paravertebral hematomas. No apical pneumothoraces. IMPRESSION: 1. Cervical spine without acute fracture or dislocation. 2. Multilevel cervical spondylosis. 3. Stable appearance of sclerotic foci involving the right posterior element of C6 and the left posterior element of T4. These are likely bone islands. Dictated by: Manohar Mckoy M.D. on 05/12/2020 at 22:01 Approved by: Manohar Mckoy M.D. on 05/12/2020 at 22:09
--- NOTE | 2020-05-12 21:00 | DI.CT.S_ITS ---
PROCEDURE: CT HEAD/BRAIN WO CON INDICATIONS: stroke/seizure TECHNIQUE: Noncontrast 4.5 mm thick angled axial sections acquired from the foramen magnum to the vertex, with coronal and sagittal reformats. For radiation dose reduction, the following was used: automated exposure control, adjustment of mA and/or kV according to patient size. COMPARISON: [facility], MR, MR STROKE, 01/19/2020, 19:42. [facility], CT, CT HEAD/BRAIN WO CON, 01/19/2020, 12:36. [facility], CT, HEAD WITHOUT CONTRAST, 06/12/2009, 6:10. FINDINGS: Image quality: Excellent. CSF spaces: Basal cisterns are patent. No extra-axial fluid collections. The ventricles are symmetric in size and shape. Brain: There is a new age-indeterminate subdural hematoma involving the right posterior parietal lobe and right occipital lobe measuring approximately 3 mm in maximum thickness overlying area of previously seen posterior right parietal lobe encephalomalacia. No significant mass effect and no midline shift. Encephalomalacia now extends to involve the posteromedial right occipital lobe. This is new since January 19, 2020 CT and appears more extensive than infarction seen on MRI dated 01/19/2020. No intracranial masses. There is cerebral volume loss for age, with resultant ventricular and sulcal prominence. There are periventricular and deep white matter chronic small vessel ischemic changes. Subcortical white matter hypoattenuation involving the left temporal lobe is relatively stable. There is intracranial internal carotid artery atherosclerosis. Skull and face: Calvarium and visualized facial bones appear intact, without suspicious lesions. Sinuses: Visualized sinuses and mastoids are clear. IMPRESSION: 1. Previously noted encephalomalacia involving the right posterior parietal lobe has increased in extent, now involving the medial aspect of the right occipital lobe. This appears chronic and likely represents evolution of previously seen infarction on prior evaluation of January 19, 2020. However, if there is high clinical suspicion for acute infarction, further evaluation with MRI can be considered. 2. There is a small extra-axial fluid collection overlying the posterior right parietal lobe and anterior occipital lobe measuring approximately 3 mm in thickness which likely represents a small subdural hematoma. It is age indeterminate but is favored to be subacute. No significant effacement the underlying cortex or midline shift of structures. 3. Other areas of age related senescent changes and chronic small vessel ischemic changes are relatively stable. Findings discussed telephonically with Dr. Arango at 2214 hrs. Dictated by: Manohar Mckoy M.D. on 05/12/2020 at 21:48 Approved by: Manohar Mckoy M.D. on 05/12/2020 at 22:17
--- NOTE | 2020-05-12 21:11 | DI.RAD.S_ITS ---
PROCEDURE: XR CHEST 1V INDICATIONS: Possible stroke TECHNIQUE: One view of the chest was acquired. COMPARISON: [facility], , XR CHEST 1V, 10/11/2019, 16:22. FINDINGS: Surgical changes and devices: None. Lungs and pleura: Slightly diminished lung volumes. Lungs are otherwise clear. No pleural effusions or pneumothorax. Mediastinum: Mediastinal contours appear normal. Heart size is normal. Bones and chest wall: No suspicious bony lesions. Overlying soft tissues appear unremarkable. IMPRESSION: Chest without acute cardiopulmonary abnormalities. No focal airspace disease. Dictated by: Manohar Mckoy M.D. on 05/12/2020 at 22:10 Approved by: Manohar Mckoy M.D. on 05/12/2020 at 22:10
--- NOTE | 2020-05-12 21:13 | ED_ITS ---
HPI - Neuro Symptoms/Deficit General Chief Complaint: Neuro Symptoms/Deficit Stated Complaint: code stroke Time Seen by Provider: 05/12/20 20:59 History of Present Illness HPI Narrative: 65-year-old gentleman with a history of hemorrhagic CVA and 3 smaller ischemic CVAs apparently had a fall about a day and half ago hitting the occiput without loss of consciousness. Was not seen by medical recruiter at that time. This evening over dinner (8pm), patient had a seizure. He has never had seizures previously. Medics were called, they described postictal presentation with mild confusion moving all extremities and improving over the course of his transport to the Emergency department. Due to long driveway and snowy conditions it took almost an hour to get him out of the house to the ambulance and back to the emergency department. Code stroke was called and he was taken immediately to the CT scanner. Because of the history of fall a CT of the cervical spine was done simultaneously. On Anticoagulants: No Related Data Home Medications Medication Instructions Recorded Confirmed aspirin 81 mg tablet,delayed 81 mg PO QAM 05/05/19 05/12/20 release Previous Rx's Medication Instructions Recorded atorvastatin 40 mg tablet 40 mg PO BEDTIME #90 tab 02/19/20 hydrochlorothiazide 25 mg tablet 25 mg PO DAILY #90 tab 02/19/20 losartan 100 mg tablet 100 mg PO QAM #90 tab 02/19/20 metoprolol succinate 25 mg 25 mg PO BID #180 tab 02/19/20 tablet,extended release 24 hr nifedipine 30 mg tablet,extended 30 mg PO BID #180 tab 02/19/20 release 24 hr Allergies Allergy/AdvReac Type Severity Reaction Status Date / Time No Known Drug Allergies Allergy Verified 01/24/20 16:31 Review of Systems Review of Systems ROS Unobtainable: All systems reviewed & are unremarkable except as noted in HPI and below Hematologic/Lymphatic On Anticoagulants: No Patient History Medical History (Updated 05/12/20 @ 22:48 by Sylvia Arango MD) Cerebral aneurysm Cerebrovascular accident (CVA) of thalamus (05/2009) Chicken pox Diabetes mellitus Foot fracture, left Fracture of right lower extremity Hyperlipidemia Hypertension Squamous cell carcinoma of skin of scalp and neck (06/2017) Testicular cancer (1997) Surgical History History of orchiectomy, unilateral (1997) History of orthopedic surgery 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) Family History Father Cancer Heart disease Diabetes mellitus Grandfather Heart disease Grandmother Stroke Mother Hypertension Asthma Social History household members: spouse Smoking Status: Former smoker alcohol intake: never substance use type: marijuana Smoking Status: Former smoker Substance Use Type: marijuana Exam Narrative Exam Narrative: General: in no acute distress. HEENT: Moist mucous membranes, normal sclera with reactive pupils, no obvious trauma to head. Neck: supple, no midline tenderness but altered mental status secondary to postictal state Respiratory: Lungs are clear to auscultation, no wheezing no rales no rhonchi. Full and symmetrical air movement Chest: No subcutaneous emphysema, no tenderness to manipulation of ribcage or thoracic spine Cardiac: Tachycardia with Regular rate and rhythm no murmurs no bruits Abdomen: Soft, nontender, good bowel tones, no flank pain. No tenderness with manipulation of pelvic ring or lumbar spine Skin: Warm and dry, no rashes Neurologic: no obvious motor asymmetries or abnormalities, postictal with mild confusion still Extremities: No trauma, well perfused Psych: Postictal Initial Vital Signs Initial Vital Signs: Vital Signs Temperature 98.7 F 05/12/20 21:07 Pulse Rate 111 H 05/12/20 21:07 Respiratory Rate 16 05/12/20 21:07 Blood Pressure 185/91 H 05/12/20 21:07 Pulse Oximetry 95 05/12/20 21:07 Course Orders Ordered: ED Orders 05/12/20 20:59 CT cervical spine wo con Stat 05/12/20 21:00 CT head/brain wo con Stat 05/12/20 21:10 COVID19 Stat Complete Blood Count AUTO DIFF Stat Comprehensive Metabolic Panel Stat Partial Thromboplastin Time Stat Prothrombin Time INR Stat Troponin & CK Cardiac Panel Stat 05/12/20 21:11 XR chest 1V Stat EKG-12 Lead Stat 05/12/20 21:35 Urinalysis and Microscopic Stat Urine Drug Screen, Rapid Stat Nicardipine HCl 25 mg/ Sodium (Chloride) 250 mls @ 50 mls/hr IV TITRATE JOHNIE; Protocol Last Admin: 05/12/20 23:07 Dose: 5 mg/hr, 50 mls/hr Documented by: RADHA Discontinued Medications Levetiracetam 1,500 mg/ Sodium (Chloride) 115 mls @ 460 mls/hr IV NOW ONE Stop: 05/12/20 21:21 Last Infusion: 05/12/20 22:13 Dose: 0 mls/hr Documented by: Admin: 05/12/20 21:51 Dose: 460 mls/hr Documented by: RADHA Sodium Chloride (Normal Saline 0.9%) 1,000 mls @ 1,000 mls/hr IV BOLUS ONE Stop: 05/12/20 22:36 Last Admin: 05/12/20 21:43 Dose: 1,000 mls/hr Documented by: ERIK Lorazepam (Lorazepam 2 Mg/Ml Inj) 2 mg IV NOW ONE Stop: 05/12/20 22:55 Last Admin: 05/12/20 22:58 Dose: 2 mg Documented by: RADHA Midazolam HCl (Midazolam 5 Mg/Ml Vial) 5 mg IV NOW ONE Stop: 05/12/20 21:21 Last Admin: 05/12/20 21:32 Dose: 5 mg Documented by: ERIK Vital Signs Vital signs: Vital Signs - 8 hr 05/12/20 21:07 05/12/20 21:08 05/12/20 21:10 Temperature 98.7 F Pulse Rate 111 H 110 H 111 H Respiratory Rate 16 22 24 Blood Pressure 185/91 H 185/91 H Pulse Oximetry 95 95 95 05/12/20 21:12 05/12/20 21:15 05/12/20 21:16 Temperature Pulse Rate 111 H 116 H 149 H Respiratory Rate 31 H 14 Blood Pressure Pulse Oximetry 96 82 L 83 L 05/12/20 21:18 05/12/20 21:20 05/12/20 21:22 Temperature Pulse Rate 126 H 115 H 115 H Respiratory Rate Blood Pressure 198/92 H Pulse Oximetry 100 100 98 05/12/20 21:23 05/12/20 21:24 05/12/20 21:25 Temperature Pulse Rate 115 H 114 H 115 H Respiratory Rate Blood Pressure 214/100 H 201/85 H Pulse Oximetry 99 99 99 05/12/20 21:26 05/12/20 21:36 05/12/20 21:38 Temperature Pulse Rate 112 H 119 H 114 H Respiratory Rate 23 23 Blood Pressure 191/88 H Pulse Oximetry 95 100 100 05/12/20 21:40 05/12/20 21:43 05/12/20 21:45 Temperature Pulse Rate 112 H 110 H 109 H Respiratory Rate 21 21 20 Blood Pressure 182/85 H 182/87 H 181/89 H Pulse Oximetry 100 100 100 05/12/20 21:48 05/12/20 21:50 05/12/20 21:53 Temperature Pulse Rate 108 H 108 H 111 H Respiratory Rate 20 19 20 Blood Pressure 181/91 H 190/96 H 196/105 H Pulse Oximetry 100 100 100 05/12/20 21:55 05/12/20 21:58 05/12/20 22:00 Temperature Pulse Rate 111 H 112 H 112 H Respiratory Rate 21 20 23 Blood Pressure 206/109 H 211/100 H Pulse Oximetry 100 100 100 05/12/20 22:01 05/12/20 22:03 05/12/20 22:05 Temperature Pulse Rate 114 H 114 H 114 H Respiratory Rate 25 H 23 23 Blood Pressure 217/115 H 201/104 H 195/98 H Pulse Oximetry 100 98 98 05/12/20 22:08 05/12/20 22:10 05/12/20 22:13 Temperature Pulse Rate 107 H 113 H 115 H Respiratory Rate 21 31 H 32 H Blood Pressure 181/89 H 188/91 H 193/90 H Pulse Oximetry 98 99 97 05/12/20 22:15 05/12/20 22:18 05/12/20 22:21 Temperature Pulse Rate 115 H 115 H 115 H Respiratory Rate 28 H 26 H 32 H Blood Pressure 201/89 H 198/95 H 199/102 H Pulse Oximetry 97 96 96 05/12/20 22:23 05/12/20 22:26 05/12/20 22:28 Temperature Pulse Rate 120 H 117 H 115 H Respiratory Rate 30 H 35 H Blood Pressure 192/107 H 193/110 H 182/99 H Pulse Oximetry 95 95 95 05/12/20 22:30 05/12/20 22:34 05/12/20 22:36 Temperature Pulse Rate 114 H 115 H 116 H Respiratory Rate Blood Pressure 176/98 H 189/100 H 191/94 H Pulse Oximetry 96 95 94 05/12/20 22:43 05/12/20 22:45 05/12/20 23:00 Temperature Pulse Rate 108 H 108 H 110 H Respiratory Rate 19 22 Blood Pressure 181/86 H 161/92 H Pulse Oximetry 95 95 96 05/12/20 23:01 05/12/20 23:10 05/12/20 23:15 Temperature Pulse Rate 110 H 108 H 104 H Respiratory Rate Blood Pressure 192/97 H 164/80 H 170/88 H Pulse Oximetry 95 95 95 05/12/20 23:20 05/12/20 23:25 05/12/20 23:30 Temperature Pulse Rate 108 H 111 H 114 H Respiratory Rate 21 21 Blood Pressure 171/91 H 169/92 H 173/84 H Pulse Oximetry 96 94 96 05/12/20 23:35 05/12/20 23:40 05/12/20 23:45 Temperature Pulse Rate 111 H 109 H 109 H Respiratory Rate 19 24 30 H Blood Pressure 180/85 H 171/80 H 175/81 H Pulse Oximetry 96 95 96 05/12/20 23:50 05/12/20 23:55 05/13/20 00:00 Temperature Pulse Rate 107 H 108 H 105 H Respiratory Rate 22 23 27 H Blood Pressure 159/75 H 167/81 H 173/81 H Pulse Oximetry 95 95 96 05/13/20 00:05 05/13/20 00:10 05/13/20 00:15 Temperature Pulse Rate 103 H 102 H 101 H Respiratory Rate 21 18 19 Blood Pressure 164/74 H 152/73 H 139/72 Pulse Oximetry 95 95 95 MDM - Neuro Symptoms/Deficit Medical Records Attestation: I reviewed the patient's medical records. Lab Data Attestation: I reviewed the patient's lab results. Result diagrams: 05/12/20 21:10 05/12/20 21:10 Labs: Lab Results 05/12/20 05/12/20 05/12/20 Range/Units 21:10 21:10 21:10 WBC 11.5 H (4.5-11.0) X10^3/uL RBC 5.04 (4.5-5.9) X10^6/uL Hgb 15.1 (13.5-17.5) g/dL Hct 43.6 (41-53) % MCV 86.4 (80-100) fL MCH 29.9 (26-34) PG MCHC 34.6 (30-36) % RDW 13.7 (11.6-14.8) % Plt Count 238 (150-400) X10^3/uL Neut % (Auto) 78.1 H (50-75) % Lymph % (Auto) 12.1 L (25-40) % [place] % (Auto) 6.9 (3-14) % Eos % (Auto) 2.3 (2-4) % Baso % (Auto) 0.6 (0-2) % Neut # (Auto) 9000 H (7273-9583) /uL Lymph # (Auto) 1400 (6995-2324) /uL [place] # (Auto) 800 (0-900) /uL Eos # (Auto) 300 (0-450) /uL Baso # (Auto) 100 (0-100) /uL PT 11.0 (10.1-12.7) SECONDS INR 1.0 (0.9-1.3) APTT 23 L (26.4-36.2) SECONDS Sodium 136 L (137-145) mmol/L Potassium 4.1 (3.4-5.1) mmol/L Chloride 95 L (98-107) mmol/L Carbon Dioxide 30 (22-32) mmol/L BUN 36 H (9-20) mg/dL Creatinine 1.19 (0.66-1.25) mg/dL Estimated GFR > 60.0 (>60) mL/min BUN/Creatinine Ratio 30.3 H (6-22) Glucose 493 H* (80-110) mg/dL Calcium 9.4 (8.4-10.2) mg/dL Total Bilirubin 0.3 (0.2-1.3) mg/dL AST 20 (17-59) IU/L ALT 32 (<50) IU/L Alkaline Phosphatase 50 (38-126) U/L Total Creatine Kinase 56 (55-170) U/L CK-MB (CK-2) TNP CK-MB (CK-2) Rel Index TNP Troponin I < 0.012 (0.01-0.034) ng/mL Total Protein 7.7 (6.3-8.2) g/dL Albumin 4.4 (3.5-5.0) g/dL Globulin 3.3 (1.7-4.1) g/dL Albumin/Globulin Ratio 1.3 (1.0-2.8) Urine Color Urine Appearance Urine pH (4.5-8.0) Ur Specific [place] (1.000-1.035) Urine Protein (Negative) Urine Glucose (UA) (Negative) g/dL Urine Ketones (NEGATIVE) Urine Occult Blood (Negative) Urine Nitrate (Negative) Urine Bilirubin (NEGATIVE) Urine Urobilinogen (0.2) E.U./dL Ur Leukocyte Esterase (NEGATIVE) Urine RBC (0-5/HPF) Urine WBC (0-5/HPF) Urine Bacteria (None) Ur Culture Indicated? Micro UA Comment U Opiates 300ng/mL cut (Negative) Ur Oxycodone Screen (Negative) Urine Methadone Screen (Negative) Ur Barbiturates Screen (Negative) U Tricyclic Antidepress (Negative) Ur Phencyclidine Scrn (Negative) Ur Amphetamines Screen (Negative) U Methamphetamines Scrn (Negative) Ur MDMA Scrn (Ecstasy) (Negative) U Benzodiazepines Scrn (Negative) Urine Cocaine Screen (Negative) U Marijuana (THC) Screen (Negative) SARS-CoV-2 (PCR) (Negative) 05/12/20 05/12/20 05/12/20 Range/Units 21:10 21:35 21:35 WBC (4.5-11.0) X10^3/uL RBC (4.5-5.9) X10^6/uL Hgb (13.5-17.5) g/dL Hct (41-53) % MCV (80-100) fL MCH (26-34) PG MCHC (30-36) % RDW (11.6-14.8) % Plt Count (150-400) X10^3/uL Neut % (Auto) (50-75) % Lymph % (Auto) (25-40) % [place] % (Auto) (3-14) % Eos % (Auto) (2-4) % Baso % (Auto) (0-2) % Neut # (Auto) (0757-9306) /uL Lymph # (Auto) (7942-0871) /uL [place] # (Auto) (0-900) /uL Eos # (Auto) (0-450) /uL Baso # (Auto) (0-100) /uL PT (10.1-12.7) SECONDS INR (0.9-1.3) APTT (26.4-36.2) SECONDS Sodium (137-145) mmol/L Potassium (3.4-5.1) mmol/L Chloride (98-107) mmol/L Carbon Dioxide (22-32) mmol/L BUN (9-20) mg/dL Creatinine (0.66-1.25) mg/dL Estimated GFR (>60) mL/min BUN/Creatinine Ratio (6-22) Glucose (80-110) mg/dL Calcium (8.4-10.2) mg/dL Total Bilirubin (0.2-1.3) mg/dL AST (17-59) IU/L ALT (<50) IU/L Alkaline Phosphatase (38-126) U/L Total Creatine Kinase (55-170) U/L CK-MB (CK-2) CK-MB (CK-2) Rel Index Troponin I (0.01-0.034) ng/mL Total Protein (6.3-8.2) g/dL Albumin (3.5-5.0) g/dL Globulin (1.7-4.1) g/dL Albumin/Globulin Ratio (1.0-2.8) Urine Color Yellow Urine Appearance Clear Urine pH 5.0 (4.5-8.0) Ur Specific [place] 1.010 (1.000-1.035) Urine Protein 1+ H (Negative) Urine Glucose (UA) 3+ H (Negative) g/dL Urine Ketones Trace H (NEGATIVE) Urine Occult Blood 2+ H (Negative) Urine Nitrate Negative (Negative) Urine Bilirubin Negative (NEGATIVE) Urine Urobilinogen 0.2 (0.2) E.U./dL Ur Leukocyte Esterase Negative (NEGATIVE) Urine RBC 0-1/hpf (0-5/HPF) Urine WBC None seen (0-5/HPF) Urine Bacteria None seen (None) Ur Culture Indicated? Cult not indicated Micro UA Comment * U Opiates 300ng/mL cut Negative (Negative) Ur Oxycodone Screen Negative (Negative) Urine Methadone Screen Negative (Negative) Ur Barbiturates Screen Negative (Negative) U Tricyclic Antidepress Negative (Negative) Ur Phencyclidine Scrn Negative (Negative) Ur Amphetamines Screen Negative (Negative) U Methamphetamines Scrn Negative (Negative) Ur MDMA Scrn (Ecstasy) Negative (Negative) U Benzodiazepines Scrn Negative (Negative) Urine Cocaine Screen Negative (Negative) U Marijuana (THC) Screen Positive H (Negative) SARS-CoV-2 (PCR) Negative (Negative) Imaging Data Chest x-ray: Radiologist's Impression: FINDINGS: Surgical changes and devices: None. Lungs and pleura: Slightly diminished lung volumes. Lungs are otherwise clear. No pleural effusions or pneumothorax. Mediastinum: Mediastinal contours appear normal. Heart size is normal. Bones and chest wall: No suspicious bony lesions. Overlying soft tissues appear unremarkable. IMPRESSION: Chest without acute cardiopulmonary abnormalities. No focal airspace disease. Dictated by: Manohar Mckoy M.D. on 05/12/2020 at 22:10 CT - cervical spine: Radiologist's Impression: FINDINGS: Image quality: Excellent. Bones: No acute fractures or dislocations. No acute compression fractures of the vertebral bodies. Craniocervical junction is intact. C1-C2 relationship is pre served. Visualized superior ribs are intact. Stable appearance of sclerotic focus involving the right C6 pedicle and left T4 pedicle. Multilevel cervical spondylitic changes most severe at C6-7. Soft tissues: Prevertebral soft tissues are normal in thickness. No paravertebral hematomas. No apical pneumothoraces. IMPRESSION: 1. Cervical spine without acute fracture or dislocation. 2. Multilevel cervical spondylosis. 3. Stable appearance of sclerotic foci involving the right posterior element of C6 and the left posterior element of T4. These are likely bone islands. Dictated by: Manohar Mckoy M.D. on 05/12/2020 at 22:01 CT scan - head: Radiologist's Impression: FINDINGS: Image quality: Excellent. CSF spaces: Basal cisterns are patent. No extra-axial fluid collections. The ventricles are symmetric in size and shape. Brain: There is a new age-indeterminate subdural hematoma involving the right posterior parietal lobe and right occipital lobe measuring approximately 3 mm in maximum thickness overlying area of previously seen posterior right parietal lobe encephalomalacia. No significant mass effect and no midline shift. Encephalomalacia now extends to involve the posteromedial right occipital lobe. This is new since January 19, 2020 CT and appears more extensive than infarction seen on MRI dated 01/19/2020. No intracranial masses. There is cerebral volume loss for age, with resultant ventricular and sulcal prominence. There are periventricular and deep white matter chronic small vessel ischemic changes. Subcortical white matter hypoattenuation involving the left temporal lobe is relatively stable. There is intracranial internal carotid artery atherosclerosis. Skull and face: Calvarium and visualized facial bones appear intact, without suspicious lesions. Sinuses: Visualized sinuses and mastoids are clear. IMPRESSION: 1. Previously noted encephalomalacia involving the right posterior parietal lobe has increased in extent, now involving the medial aspect of the right occipital lobe. This appears chronic and likely represents evolution of previously seen infarction on prior evaluation of January 19, 2020. However, if there is high clinical suspicion for acute infarction, further evaluation with MRI can be considered. 2. There is a small extra-axial fluid collection overlying the posterior right parietal lobe and anterior occipital lobe measuring approximately 3 mm in thickness which likely represents a small subdural hematoma. It is age indeterminate but is favored to be subacute. No significant effacement the underlying cortex or midline shift of structures. 3. Other areas of age related senescent changes and chronic small vessel ischemic changes are relatively stable. Findings discussed telephonically with Dr. Arango at 2214 hrs. Dictated by: Manohar Mckoy M.D. on 05/12/2020 at 21:48 Brain MRI/MRA 01/19/2020: Radiologist's Impression: COMPARISON: [facility], CT, CT HEAD/BRAIN WO CON, 01/19/2020, 12:36. FINDINGS: Image quality: Excellent. BRAIN: CSF spaces: Ventricles are normal in size and shape. Basal cisterns are patent. No extra-axial fluid collections. Brain: No intracranial bleeds or mass effects. Marquez-white matter interface is normal on the left and unchanged on right the posterior right parietal occipital region son acute ischemic injury corresponding to the abnormality found earlier same day in that area on CT scanning. This measures up to 4.5 cm in maximal dimension and has mild adjacent mass effect. A small amount of luxury perfusion comprised of mildly heterogeneous contrast enhancement within this area of ischemic injury can be seen on postcontrast imaging open (series 36, image 110, for example). Diffusion weighted images show no superimposed acute ischemic insults over the convexities in addition to this subacute abnormality. However, the right and paramedian pontomedullary junction portion of the brainstem shows a small area measuring approximately 1.5 cm of acute/subacute ischemic injury without significant mass effect or associated hemorrhage. This is best seen on diffusion imaging series 26, image 55. Elsewhere the brainstem appears normal. Normal intravascular flow voids are present. No abnormal intracranial enhancement. Skull and face: Calvarial marrow signal is normal. Orbits appear normal. Sinuses: Sinuses and mastoids are clear. BRAIN MR ANGIOGRAM: Anterior circulation: Intracranial internal carotid arteries are normal in size and enhancement. The flow within the paired anterior cerebral arteries is normal and symmetric. The flow within the middle cerebral arteries is normal and symmetric. The anterior communicating artery is seen. No stenoses, occlusions, or aneurysms. Posterior circulation: The visualized portions of the vertebral arteries demonstrate normal caliber, and join to form a normal appearing basilar artery. The flow within the posterior cerebral arteries is normal and symmetric. No stenoses, occlusions, or aneurysms. NECK MR ANGIOGRAM: Carotids: Great vessels demonstrate a conventional anatomy as they arise from the aortic arch. The origins of the common carotid arteries appear patent. The calibers and courses of both common carotid arteries are normal. The bifurcation regions appear normal bilaterally. The internal carotid arteries demonstrate normal course and caliber. Posterior circulation: The origins of the vertebral arteries appear patent. More superior portions of both vertebral arteries demonstrate normal course and caliber, and join to form a normal appearing basilar artery. Miscellaneous: Subclavian arteries appear patent. Pre-contrast images through the neck show no soft tissue abnormalities. IMPRESSION: BRAIN MRI: Subacute ischemic injury is present within a 4.5 cm diameter sharply demarcated area of the right occipital parietal region corresponding to the area of abnormality identified earlier same day in that area, with a small amount of contrast enhancement involving the injured brain parenchyma due to secondary increased per me ability of the blood brain barrier as result. No hemorrhage is found. There is, however, a more recent appearing area of focal ischemic injury involving the pontomedullary junction of the brainstem on the right, extending to the midline. This 1.5 cm area shows elevated diffusion signal and also elevated FLAIR signal but no heterogeneous contrast enhancement, suggestive of a more acute event. BRAIN MR ANGIOGRAM: No aneurysm or occlusion found. NECK MR ANGIOGRAM: Normal cervical MR angiogram. Dictated by: Tao Strauss M.D. on 01/19/2020 at 20:41 ECG Data Attestation: I personally reviewed and interpreted this ECG as follows: Interpretation: Sinus tachycardia at 115 Normal axis, normal intervals No acute ischemic changes MDM Narrative Medical decision making narrative: 925pm Once back in the trauma [place], he again had a 3 minutes tonic clonic seizure. He was given 5 mg of IV Versed. Nasal trumpet was placed for oxygen saturations decreasing. Once seizure stopped (approx 3 minutes), he remains somewhat sedated and postictal but is maintaining his airway with oxygen saturations coming up nicely with a nasal trumpet in place. Will be loaded with 1500 mg of Keppra. Still waiting for CT reads and lab work at this time. Elevated blood sugar at 400 is appreciated immediately after his seizure. He has a history of diet-controlled diabetes after recent weight loss has been able to discontinue even his metformin. 950pm Susy Jackson, [phone]. Notes he was tired today. Ischemic [place] in December, BP has been controlled since. Brain Aneurysm 7 years ago 1010pm Waiting for CT read. Concern for subdural, no obvious shift. 3rd page to Radiolgy, reading now. 1015 Discussed with Radiology. Studies sent to [facility]. Will discuss patient with heart review with request for transfer. Small subdural hematoma after a fall with impact to the occiput almost 48 hours ago, now with new onset seizures he has had 2 both lasting approximately 3 minutes with a 15-20 minute postictal phase. He has had 5 mg of IV Versed and 1500 mg IV Keppra. He is moving all extremities, without focal neurologic findings, still slightly slowed cognitively(GCS 14) able to answer yes and no questions but not able to carry on a conversation. 10[address] [facility] tranfer center. ER doc, Lala Hernandez will be accepting physici an for ER to ER transfer. Discussed BP goals in this setting. no lower than 140 systolic but not as high as the curent 180's. Nicardipine gtt started and transport being arranged. 1115 is updated with the plan. ALS transport should be available night midnight. Neck her to pain drip has been started. Additional Ativan because he is so restless at this time. Continues to maintain his airway without difficulty. Critical Care Time Critical Care Time Critical Care Time: Yes Total Critical Care Time: 42 Attestation: Critical care time is separate from other billable procedures. This critical care time includes consultation with family and other consulting doctors, review of records, and interpretation of data from labs, EKGs and imaging as well as managements of acute neurologic injury, chronic active management of ongoing seizure activity, IV management of blood pressure, trauma and altered mental status. Discharge Plan Departure Patient Disposition: [facility] Clinical Impression: Seizure after head injury, Acute subdural hematoma, Acute hyperglycemia Fall Qualifiers: Encounter type: initial encounter Qualified Code(s): W19.XXXA - Unspecified fall, initial encounter Altered mental status Qualifiers: Altered mental status type: disorientation Qualified Code(s): R41.0 - Disorientation, unspecified Prescriptions: No Action atorvastatin 40 mg tablet 40 mg PO BEDTIME Qty: 90 RF: 3 hydrochlorothiazide 25 mg tablet 25 mg PO DAILY Qty: 90 RF: 3 metoprolol succinate 25 mg tablet extended release 24 hr 25 mg PO BID Qty: 180 RF: 3 nifedipine 30 mg tablet extended release 24hr 30 mg PO BID Qty: 180 RF: 3 losartan 100 mg tablet 100 mg PO QAM Qty: 90 RF: 3 aspirin 81 mg tablet,delayed release (DR/EC) 81 mg PO QAM RF: 0 Referrals: Zlealem Cheng MD [Primary Care Provider] -
--- NOTE | 2020-05-12 21:20 | PC.NURSE ---
Pt alert and speaking to staff, stating he wants to use the urinal, assisted turning on his side, pt started with rigid jerking movements. Pt already on side, placed on NRB, nasal trumpet inserted in L nare. Dr Arango at bedside. Order for 5mg Versed, given. Pt with seizure like activity for approx 3-3.5 min. Additional IV access obtained. HR 114 BP [id number], 100% on NRB with nasal trumpet. Sitting supine with HOB elevated, ETCO2 35. RT at bedside.
[2020-05-12 21:28] LABS: Add Manual Diff / Slide Review NO; Basophils Absolute Auto 100 /uL (0-100); Basophils Percent Auto 0.6 % (0-2); Eosinophils Absolute Auto 300 /uL (0-450); Eosinophils Percent Auto 2.3 % (2-4); Hematocrit 43.6 % (41-53); Hemoglobin 15.1 g/dL (13.5-17.5); Lymphocytes Absolute Auto 1400 /uL (1100-4500); Lymphocytes Percent Auto 12.1 % (25-40); Mean Corpuscular HGB Conc 34.6 % (30-36); Mean Corpuscular Hemoglobin 29.9 PG (26-34); Mean Corpuscular Volume 86.4 fL (80-100); Monocytes Absolute Auto 800 /uL (0-900); Monocytes Percent Auto 6.9 % (3-14); Neutrophils Absolute Auto 9000 /uL (1500-7000); Neutrophils Percent Auto 78.1 % (50-75); PTT Partial Thromboplastin Tim 23 SECONDS (26.4-36.2); Platelet Count 238 X10^3/uL (150-400); Red Blood Cell Count 5.04 X10^6/uL (4.5-5.9); Red Cell Distribution Width 13.7 % (11.6-14.8); White Blood Cell Count 11.5 X10^3/uL (4.5-11.0)
[2020-05-12 21:30] LABS: Alanine Aminotransferase 32 IU/L (<50); Albumin 4.4 g/dL (3.5-5.0); Albumin Globulin Ratio 1.3 (1.0-2.8); Alkaline Phosphatase 50 U/L (38-126); Aspartate Aminotransferase 20 IU/L (17-59); BUN Creatinine Ratio 30.3 (6-22); Bilirubin Total 0.3 mg/dL (0.2-1.3); Blood Urea Nitrogen 36 mg/dL (9-20); Calcium 9.4 mg/dL (8.4-10.2); Carbon Dioxide 30 mmol/L (22-32); Chloride 95 mmol/L (98-107); Creatine Kinase 56 U/L (55-170); Estimated Glomerular Filt Rate > 60.0 mL/min (>60); Globulin 3.3 g/dL (1.7-4.1); HEMOLYSIS 18 (0-50); Potassium 4.1 mmol/L (3.4-5.1); Sodium 136 mmol/L (137-145); Total Protein 7.7 g/dL (6.3-8.2)
[2020-05-12] MEDS: MIDAZOLAM 5 MG/ML VIAL IV (21:32)
[2020-05-12 21:33] LABS: COVID19 -Nasal RAPID Negative (Negative)
[2020-05-12 21:35] LABS: Glucose 493 mg/dL (80-110)
[2020-05-12 21:40] LABS: Bacteria Urine None Seen; WBC Urine None Seen (0-5/HPF)
[2020-05-12 21:42] LABS: Troponin I < 0.012 ng/mL (0.01-0.034)
[2020-05-12 21:43] LABS: Appearance Urine UA CLEAR; Bilirubin Urine UA NEGATIVE (NEGATIVE); Color Urine UA YELLOW; Glucose Urine UA 3+ g/dL (Negative); Ketones Urine UA TRACE (NEGATIVE); Leukocyte Esterase Urine UA NEGATIVE (NEGATIVE); Nitrite Urine UA NEGATIVE (Negative); Occult Blood Urine UA 2+ (Negative); Protein Urine UA 1+ (Negative); Urobilinogen Urine UA 0.2 E.U./dL (0.2)
[2020-05-12] MEDS: SODIUM CHLORIDE 0.9% 1,000 ML 1000 ML IV (21:43)
[2020-05-12 21:48] LABS: UR Morphine/Opiate cutoff 300 Negative (Negative); Ur Creatinine 20 (Normal); Urine Amphetamines Negative (Negative); Urine Barbiturates Negative (Negative); Urine Benzodiazepines Negative (Negative); Urine Cocaine Negative (Negative); Urine MDMA Negative (Negative); Urine Methadone Negative (Negative); Urine Methamphetamines Negative (Negative); Urine Oxycodone Negative (Negative); Urine Phencyclidine Negative (Negative); Urine Tetrahydrocannabinol Positive (Negative); Urine Tricyclic Antidepressant Negative (Negative); Urine pH 5 (Normal)
[2020-05-12] MEDS: levETIRAcetam 1,500 MG in SODIUM CHLORIDE 0.9% 100 ML 460 ML IV (21:51)
[2020-05-12 22:00] LABS: Culture Indicated Urine Cult Not Indicated; RBC Urine 0-1/HPF (0-5/HPF)
[2020-05-12] MEDS: LORazepam 2 MG/ML INJ IV (22:58)
[2020-05-12] MEDS: NICARDIPINE 25 MG in SODIUM CHLORIDE 0.9% 240 ML 50 ML IV (23:07)
[2020-05-13] VITALS: BP 173/81; PULSE 105; RESP 27; O2SAT 96
[2020-05-13 00:05] VITALS: BP 164/74; PULSE 103; RESP 21; O2SAT 95
[2020-05-13 00:10] VITALS: BP 152/73; PULSE 102; RESP 18; O2SAT 95
[2020-05-13 00:15] VITALS: BP 139/72; PULSE 101; RESP 19; O2SAT 95
[2020-05-13 00:20] VITALS: BP 164/95; PULSE 101; RESP 19; O2SAT 96
[2020-05-13 00:25] VITALS: BP 156/69; PULSE 100; RESP 21; O2SAT 96
--- NOTE | 2020-05-23 20:01 | PC.NURSE ---
On 05/13/20 Pt completed bolus of ns and nicardipime drip was started just proir to transfer.
== END 2020-05-13 00:38 | disposition short-term general hospital (02) ==
PROVIDERS: Emergency Provider Emergency Medicine; Family Provider Student in an Organized Health Care Education/Training Program; PCP Student in an Organized Health Care Education/Training Program
DX: S06.5X0A Traumatic subdural hemorrhage without loss of consciousness, initial encounter (principal); R73.9 Hyperglycemia, unspecified; R41.0 Disorientation, unspecified; G40.89 Other seizures; E78.5 Hyperlipidemia, unspecified; I10 Essential (primary) hypertension; Z20.822 Contact with and (suspected) exposure to COVID-19; W19.XXXA Unspecified fall, initial encounter
CPT/HCPCS: 36415; 51701; 70450; 71045; 72125; 80053; 80305; 81001; 82550; 84484; 85025; 85610; 85730; 87635; 93005; 93010; 96365; 96366; 96367; 96375; 99284; 99291; 99292; C9803; J1953; J2060; J2250

== ENCOUNTER → 2020-06-13 13:59 | Outpatient (CLI) | payer MEDICARE, SELFPAY ==
[2020-01-22 13:05] VITALS: BMI 25.0
[2020-06-13] MEDS: COVID-19 VACC #1, MRNA(MOD) 100 MCG/0.5 ML VIAL IM (14:08)
== END ==
PROVIDERS: Family Provider Student in an Organized Health Care Education/Training Program; PCP Student in an Organized Health Care Education/Training Program; Visit Provider Internal Medicine
DX: Z23 Encounter for immunization (principal)
CPT/HCPCS: 0011A; 91301

== ENCOUNTER → 2020-07-11 14:01 | Outpatient (CLI) | payer MEDICARE, SELFPAY ==
[2020-01-22 13:05] VITALS: BMI 25.0
[2020-07-11] MEDS: COVID-19 VACC #2, MRNA(MOD) 100 MCG/0.5 ML VIAL IM (14:07)
== END ==
PROVIDERS: Family Provider Student in an Organized Health Care Education/Training Program; PCP Student in an Organized Health Care Education/Training Program; Visit Provider Internal Medicine
DX: Z23 Encounter for immunization (principal)
CPT/HCPCS: 0012A; 91301

== ENCOUNTER → 2020-08-13 11:03 | Outpatient (CLI) | payer MEDICARE, SELFPAY ==
[2020-01-22 13:05] VITALS: BMI 25.0
--- NOTE | 2020-08-13 12:09 | DI.CT.S_ITS ---
PROCEDURE: CT HEAD/BRAIN WO CON INDICATIONS: Re-eval remote h/o subdural hemorrhage TECHNIQUE: Noncontrast 4.5 mm thick angled axial sections acquired from the foramen magnum to the vertex, with coronal and sagittal reformats. For radiation dose reduction, the following was used: automated exposure control, adjustment of mA and/or kV according to patient size. COMPARISON: [facility], CT, CT HEAD/BRAIN WO CON, 05/12/2020, 20:59. FINDINGS: Cerebrum, Cerebellum and Brainstem: Thin extra-axial fluid collection over the right posterior parietal lobe is again noted measuring 3 mm, unchanged from the prior. Additionally, there is persistent cystic encephalomalacia and gliosis involving the right inferior parietal lobule and medial right occipital lobe, stable from prior. No midline shift. Moderate cerebral and cerebellar volume loss as well as multifocal hypoattenuation in the deep and subcortical white matter present. No acute hemorrhage or mass effect. Basal cisterns and foramen magnum are clear. Ventricles: Appropriate in size and position given the amount of cerebral atrophy. No evidence of hydrocephalus. Skull Base: The bony sella, pituitary gland and infundibulum are unremarkable. Clivus and craniovertebral relationships are appropriate. Visualized portions of external auditory canals and tympanic cavities are within normal limits. Calvarium and Scalp: No scalp soft tissue swelling. The underlying calvarium is intact without skull fracture or lytic lesion. Paranasal Sinuses: Unremarkable as visualized. No mucosal thickening or retention cyst noted. Mastoids: Unremarkable as visualized. No mastoid effusion present. Other: Atherosclerotic calcification in the cavernous portions of the distal internal carotid and intradural vertebral arteries are noted. IMPRESSION: 1. Chronic thin right parietal subdural hematoma is unchanged from the prior exam, 3 mm. No mass effect or midline shift. 2. Stable right parietal/occipital cystic encephalomalacia and gliosis reflecting old infarct. 3. Moderate atrophy and chronic ischemic change Dictated by: Arpit Lyon M.D. on 08/13/2020 at 10:56 Approved by: Arpit Lyon M.D. on 08/13/2020 at 11:16
== END ==
PROVIDERS: Family Provider Student in an Organized Health Care Education/Training Program; PCP Student in an Organized Health Care Education/Training Program; Referring Provider Student in an Organized Health Care Education/Training Program; Visit Provider Student in an Organized Health Care Education/Training Program
DX: S06.5X9A Traumatic subdural hemorrhage with loss of consciousness of unspecified duration, initial encounter (principal); G44.329 Chronic post-traumatic headache, not intractable; G93.89 Other specified disorders of brain
CPT/HCPCS: 70450

== ENCOUNTER → 2020-08-19 15:15 | Outpatient (CLI) | payer MEDICARE, SELFPAY ==
[2020-01-22 13:05] VITALS: BMI 25.0
[2020-08-19 16:10] LABS: Hemoglobin A1C% w Est Avg Glu 5.9 % (4.0-6.0)
== END ==
PROVIDERS: Family Provider Student in an Organized Health Care Education/Training Program; PCP Student in an Organized Health Care Education/Training Program; Referring Provider Student in an Organized Health Care Education/Training Program; Visit Provider Student in an Organized Health Care Education/Training Program
DX: E11.9 Type 2 diabetes mellitus without complications (principal)
CPT/HCPCS: 36415; 83036

== ENCOUNTER → 2020-12-13 17:24 | Outpatient (CLI) | payer MEDICARE, SELFPAY ==
[2020-01-22 13:05] VITALS: BMI 25.0
[2020-12-13 18:23] LABS: BUN Creatinine Ratio 23.4 (6-22); Blood Urea Nitrogen 46 mg/dL (9-20); Estimated Glomerular Filt Rate 34.5 mL/min (>60)
[2020-12-13 18:26] LABS: Hemoglobin A1C% w Est Avg Glu 5.3 % (4.0-6.0)
== END ==
PROVIDERS: Family Provider Student in an Organized Health Care Education/Training Program; PCP Student in an Organized Health Care Education/Training Program; Referring Provider Student in an Organized Health Care Education/Training Program; Visit Provider Student in an Organized Health Care Education/Training Program
DX: E11.9 Type 2 diabetes mellitus without complications (principal); I10 Essential (primary) hypertension
CPT/HCPCS: 36415; 82565; 83036; 84520

== ENCOUNTER → 2021-01-15 16:21 | Outpatient (CLI) | payer MEDICARE, SELFPAY ==
[2020-01-22 13:05] VITALS: BMI 25.0
[2021-01-15 17:03] LABS: Appearance Urine UA CLEAR; Bilirubin Urine UA NEGATIVE (NEGATIVE); Color Urine UA YELLOW; Glucose Urine UA NEGATIVE (Negative); Ketones Urine UA NEGATIVE (NEGATIVE); Leukocyte Esterase Urine UA NEGATIVE (NEGATIVE); Nitrite Urine UA NEGATIVE (Negative); Occult Blood Urine UA 1+ (Negative); Protein Urine UA NEGATIVE (Negative); Specific Gravity Urine UA 1.015 (1.000-1.035); Urobilinogen Urine UA 0.2 E.U./dL (0.2); pH Urine UA 5.5 (4.5-8.0)
[2021-01-15 17:47] LABS: Creatinine Urine Random 118.4 mg/dL
[2021-01-15 17:48] LABS: Microalbumi Creatinin Ratio Ur 9.2 ug/mg CR (<30); Microalbumin Urine Random 1.1 mg/dL (0-1.6)
[2021-01-15 18:15] LABS: Bacteria Urine Occasional (0-1); Culture Indicated Urine Cult Not Indicated; RBC Urine 1-5/HPF (0-5/HPF); Squamous Epithelial Cell Urine 0-1 /HPF (0-5/HPF); WBC Urine 0-1/HPF (0-5/HPF)
[2021-01-15 22:49] LABS: BUN Creatinine Ratio 14.2 (6-22); Blood Urea Nitrogen 21 mg/dL (9-20); Calcium 9.2 mg/dL (8.4-10.2); Carbon Dioxide 25 mmol/L (22-32); Chloride 99 mmol/L (98-107); Estimated Glomerular Filt Rate 47.9 mL/min (>60); Glucose 164 mg/dL (80-110); HEMOLYSIS < 15 (0-50); Potassium 3.5 mmol/L (3.4-5.1); Sodium 140 mmol/L (137-145)
== END ==
PROVIDERS: Family Provider Student in an Organized Health Care Education/Training Program; PCP Student in an Organized Health Care Education/Training Program; Referring Provider Student in an Organized Health Care Education/Training Program; Visit Provider Student in an Organized Health Care Education/Training Program
DX: N17.9 Acute kidney failure, unspecified (principal); E11.9 Type 2 diabetes mellitus without complications
CPT/HCPCS: 36415; 80048; 81001; 82043; 82570

== ENCOUNTER → 2021-03-12 10:41 | Outpatient (CLI) | payer MEDICARE, SELFPAY ==
[2020-01-22 13:05] VITALS: BMI 25.0
[2021-03-12 11:48] LABS: COVID19 -Nasal RAPID Negative (Negative)
== END ==
PROVIDERS: Family Provider Student in an Organized Health Care Education/Training Program; PCP Student in an Organized Health Care Education/Training Program; Visit Provider Surgery
DX: Z01.812 Encounter for preprocedural laboratory examination (principal); Z20.822 Contact with and (suspected) exposure to COVID-19
CPT/HCPCS: 87635; C9803

== ENCOUNTER 2021-03-13 12:36 | Day surgery (SDC) | payer MEDICARE, SELFPAY ==
[2020-01-22 13:05] VITALS: BMI 25.0
[2021-03-13] VITALS (7 sets, daily range): BP systolic 138–167; BP diastolic 74–88; PULSE 72–79; RESP 11–16; TEMP 36.2–36.5; O2SAT 97–99; BMI 22.6
--- NOTE | 2021-03-13 | PATH_ITS ---
[facility] Accession Number: [id number] . 01 Material submitted: . colon - TRANSVERSE COLON . 02 Diagnosis: Transverse Colon, Biopsy: Tubular adenoma [facility] 03/17/2021 1537 Local . 02 Electronically signed: . Tatum Lucas MD, Pathologist NPI- [id number] . 01 Gross description: . TRANSVERSE COLON: Received in formalin are 2 fragment(s) of zhang, soft tissue measuring 0.2 x 0.2 x 0.2 cm to 0.3 x 0.3 x 0.3 cm submitted entirely in 1 cassette(s) /RENATA 03/14/20212054 Local . 02 Pathologist provided ICD-10: D12.3 . 02 CPT . 713778 Performed at: 01 [facility] Cyt[facility] [address], [place], [place] [id number] MD Luiz Quiroz MD Phone: [phone] Performed at: 02 [facility] [address] [place], [place] [id number] MD Tatum Lucas MD Phone: [phone]
[2021-03-13] MEDS: LACTATED RINGERS 1,000 ML 200 ML IV (13:19)
--- NOTE | 2021-03-13 13:51 | PM.HP.1 ---
History of Present Illness History of Present Illness Date Patient Seen: 03/13/21 Time Patient Seen: 13:52 Chief complaint: SDC Narrative: The patient presents for colorectal sreening. They have never had any previous examination for such. Father developed colon cancer. On further history denies any recent gastrointestinal symptoms. No nausea, vomiting, abdominal pain, loss of appetite, unexplained weight loss, change in bowel habits, diarrhea, constipation, melena, hematochezia, or bright red blood per rectum. Patient History Medical History Cerebral aneurysm Cerebrovascular accident (CVA) of thalamus (05/2009) Chicken pox Diabetes mellitus Foot fracture, left Fracture of right lower extremity Hyperlipidemia Hypertension Pilomatrixoma of scalp and neck Testicular cancer (1997) Surgical History History of orchiectomy, unilateral (1997) History of orthopedic surgery 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) Family & Social History Family History Father Cancer Heart disease Diabetes mellitus Grandfather Heart disease Grandmother Stroke Mother Hypertension Asthma Social History: household members spouse Tobacco & Substance use: Tobacco type cannabis/marijuana Smoking Status Former smoker alcohol intake never Substance Use Type marijuana Meds Home Medications and Allergies Home Medications Medication Instructions Recorded Confirmed Type aspirin 81 mg tablet,delayed 81 mg PO QAM 05/05/19 03/13/21 History release losartan 100 mg tablet 100 mg PO QAM #90 tab 02/19/20 03/13/21 Rx glucose test monitor #1 ea 05/20/20 08/19/20 Rx lancets #300 ea 05/20/20 08/19/20 Rx nifedipine 30 mg tablet,extended 30 mg PO .COMPLEX #270 tab 07/11/20 03/13/21 Rx release 24 hr glucose test strips #300 ea 07/12/20 08/19/20 Rx metformin 500 mg tablet 500 mg PO BID #180 tab 01/20/21 03/13/21 Rx atorvastatin 40 mg tablet 40 mg PO BEDTIME #90 tab 02/03/21 03/13/21 Rx metoprolol succinate 25 mg 25 mg PO BID #180 tab 02/03/21 03/13/21 Rx tablet,extended release 24 hr hydrochlorothiazide 25 mg tablet 25 mg PO DAILY #90 tab 02/10/21 03/13/21 Rx Allergies Allergy/AdvReac Type Severity Reaction Status Date / Time No Known Drug Allergies Allergy Verified 03/13/21 12:22 Exam Vital Signs (past 8 hours): - 03/13/21 12:56 Temperature 97.4 F L Pulse Rate 79 Respiratory Rate 16 Blood Pressure 138/74 Pulse Oximetry 99 Oxygen Delivery Method Room Air Narrative Exam Narrative: Constitutional-he is oriented to person, place and time. No apparent distress Cardiovascular- regular rate, no peripheral edema Pulmonary-unlabored respiratory effort, no audible wheezing Abdominal-soft, non-tender, non-distended Assessment & Plan Assessment and plan (1) Screening for colon cancer: Status: Acute Assessment & Plan narrative: The patient requires colorectal screening and colonoscopy is recommended. Technical details were discussed. Risks, benefits, alternatives explained. Risks including but not limited to myocardial infarction, aspiration, bleeding, pain, missed lesion, incomplete examination, need for further radiographic studies, colonic perforation, and need for major abdominal surgery were discussed. All questions were answered to their satisfaction, and they are in agreement with this plan. Time Spent With Patient Critical Care time: I spent a total of [] minutes of critical care time on this patient's care today; this time is exclusive of procedural time.
[2021-03-13] MEDS: fentaNYL 250 MCG/5 ML INJ IV (14:01)
[2021-03-13] MEDS: MIDAZOLAM 5 MG/5 ML VIAL IV (14:01)
--- NOTE | 2021-03-13 14:14 | PM.OP.COLON ---
Operative Date/Time/Diagnoses Date of procedure: 03/13/21 Time of procedure: 14:14 Pre-op diagnosis: High-risk screening. Family history of colon cancer Post-op diagnosis: same Procedure & Clinicians Study performed: Colonoscopy Same procedure as scheduled: Yes Indications: High risk screening. Family history of colon cancer Surgeon: Stiven Palomino Procedure Notes Procedure in detail: Medications: Conscious sedation using 4mg IV midazolam and 100mcg IV of fentanyl The history and physical was performed/updated and the patient is ASA class is 2. The procedure was discussed in detail with the patient. Potential risks complications including infection, bleeding, missed diagnosis, perforation, need for surgery, and were explained. Their questions were answered and informed consent was obtained. Patient was brought to the procedure room and placed standard monitoring equipment. The patient's vital signs were monitored continuously throughout the entire procedure. Prior to starting time-out was performed. The patient was placed in the left lateral recumbent position. Procedural sedation was administered. Examination began with a thorough inspection of the perianal area there was no evidence of fissures, fistulae, external hemorrhoids or cutaneous malignancy. The colonoscopy scope was then placed into the anal canal and was advanced to the cecum, which was identified by the ileocecal valve, the appendiceal orifice and the confluence of the taenia. The scope was then slowly withdrawn examining colon thoroughly in all directions, irrigating it of any residual stool. FINDINGS 1. 5 mm polyp transverse colon removed with biopsy forceps 2. Grade 2 internal hemorrhoids The patient tolerated the procedure well. They will be discharged once criteria are met. The prep was of good/excellent quality. The withdrawl time was 6minutes. The sedation time was 15 minutes. Specimen(s): other (Transverse colon polyp) Impression: Colonic polyp Post-procedure Recommendations: Colonoscopy in 5 years Disposition: same day surgery
== END 2021-03-13 15:00 | disposition home or self-care (01) ==
PROVIDERS: Family Provider Student in an Organized Health Care Education/Training Program; PCP Student in an Organized Health Care Education/Training Program; Referring Provider Surgery; Visit Provider Surgery
PROC: 0DJD8ZZ Inspection of Lower Intestinal Tract, Via Natural or Artificial Opening Endoscopic (ICD-10-PCS; CPT 45378; principal; 2021-03-13 13:30)
DX: Z12.11 Encounter for screening for malignant neoplasm of colon (principal); Z80.0 Family history of malignant neoplasm of digestive organs; I10 Essential (primary) hypertension; E78.5 Hyperlipidemia, unspecified; E11.9 Type 2 diabetes mellitus without complications; Z79.84 Long term (current) use of oral hypoglycemic drugs; K64.1 Second degree hemorrhoids; D12.3 Benign neoplasm of transverse colon
CPT/HCPCS: 45380; 99152; J2250; J3010

== ENCOUNTER → 2021-06-23 17:16 | Outpatient (CLI) | payer MEDICARE, SELFPAY ==
[2020-01-22 13:05] VITALS: BMI 25.0
[2021-06-23 17:48] LABS: Hemoglobin A1C% w Est Avg Glu 5.7 % (4.0-6.0)
[2021-06-23 18:26] LABS: BUN Creatinine Ratio 22.3 (6-22); Blood Urea Nitrogen 31 mg/dL (9-20); Calcium 9.1 mg/dL (8.4-10.2); Carbon Dioxide 30 mmol/L (22-32); Chloride 102 mmol/L (98-107); Estimated Glomerular Filt Rate 51.4 mL/min (>60); Glucose 131 mg/dL (80-110); HEMOLYSIS < 15 (0-50); Potassium 3.3 mmol/L (3.4-5.1); Sodium 141 mmol/L (137-145)
== END ==
PROVIDERS: Family Provider Student in an Organized Health Care Education/Training Program; PCP Student in an Organized Health Care Education/Training Program; Referring Provider Student in an Organized Health Care Education/Training Program; Visit Provider Student in an Organized Health Care Education/Training Program
DX: E11.9 Type 2 diabetes mellitus without complications (principal); I10 Essential (primary) hypertension; N17.9 Acute kidney failure, unspecified
CPT/HCPCS: 36415; 80048; 83036

== ENCOUNTER → 2022-01-20 16:33 | Outpatient (CLI) | payer MEDICARE, SELFPAY ==
[2020-01-22 13:05] VITALS: BMI 25.0
[2022-01-20 17:12] LABS: HEMOLYSIS < 15 (0-50)
[2022-01-20 17:18] LABS: BUN Creatinine Ratio 23.1 (6-22); Blood Urea Nitrogen 36 mg/dL (9-20); Carbon Dioxide 26 mmol/L (22-32); Chloride 101 mmol/L (98-107); Cholesterol 114 mg/dL (140-199); Estimated Glomerular Filt Rate 49 mL/min (>60); Glucose 134 mg/dL (80-110); HDL Cholesterol 41 mg/dL (40-60); LDL Cholesterol Calculated 52 mg/dL (<100); Potassium 3.1 mmol/L (3.4-5.1); Sodium 142 mmol/L (137-145); Triglycerides 103 mg/dL (35-150)
[2022-01-20 17:40] LABS: Hemoglobin A1C% w Est Avg Glu 5.7 % (4.0-6.0)
[2022-01-20 17:50] LABS: Prostate Specific Antigen Scrn 3.01 ng/mL (0.1-4.0)
[2022-01-20 18:02] LABS: Creatinine Urine Random 141.8 mg/dL
[2022-01-20 18:07] LABS: Microalbumi Creatinin Ratio Ur 11.2 ug/mg CR (<30); Microalbumin Urine Random 1.6 mg/dL (0-1.6)
[2022-01-22 16:34] LABS: Hep C Virus Ab w/Reflex Quant NEGATIVE s/c (NEGATIVE)
== END ==
PROVIDERS: Family Provider Student in an Organized Health Care Education/Training Program; PCP Student in an Organized Health Care Education/Training Program; Referring Provider Student in an Organized Health Care Education/Training Program; Visit Provider Student in an Organized Health Care Education/Training Program
DX: E11.69 Type 2 diabetes mellitus with other specified complication (principal); Z12.5 Encounter for screening for malignant neoplasm of prostate; E78.5 Hyperlipidemia, unspecified; I10 Essential (primary) hypertension; E11.9 Type 2 diabetes mellitus without complications; N17.9 Acute kidney failure, unspecified; Z11.59 Encounter for screening for other viral diseases; Z91.89 Other specified personal risk factors, not elsewhere classified
CPT/HCPCS: 36415; 80048; 80061; 82043; 82570; 83036; 86803; G0103

== ENCOUNTER → 2022-07-23 14:53 | Outpatient (CLI) | payer MEDICARE, SELFPAY ==
[2020-01-22 13:05] VITALS: BMI 25.0
[2022-07-23 15:56] LABS: BUN Creatinine Ratio 22.1 (6-22); Blood Urea Nitrogen 29 mg/dL (9-20); Calcium 8.7 mg/dL (8.4-10.2); Carbon Dioxide 28 mmol/L (22-32); Chloride 102 mmol/L (98-107); Estimated Glomerular Filt Rate > 60 mL/min (>60); Glucose 116 mg/dL (80-110); HEMOLYSIS < 15 (0-50); Potassium 3.7 mmol/L (3.4-5.1); Sodium 139 mmol/L (137-145)
[2022-07-24 09:34] LABS: x Labcorp Estim. Avg Glu (eAG) 123 mg/dL (.); x Labcorp Hemoglobin A1c 5.9 % (4.8-5.6)
== END ==
PROVIDERS: Family Provider Student in an Organized Health Care Education/Training Program; PCP Student in an Organized Health Care Education/Training Program; Referring Provider Student in an Organized Health Care Education/Training Program; Visit Provider Student in an Organized Health Care Education/Training Program
DX: E87.6 Hypokalemia (principal); N18.31 Chronic kidney disease, stage 3a; E11.9 Type 2 diabetes mellitus without complications
CPT/HCPCS: 36415; 80048; 83036

== ENCOUNTER 2023-04-01 14:59 | Emergency (ER) | payer MEDICARE, SELFPAY ==
[2020-01-22 13:05] VITALS: BMI 25.0
[2023-04-01] VITALS (9 sets, daily range): BP systolic 158–183; BP diastolic 68–125; PULSE 83–100; RESP 8–19; TEMP 36.4; O2SAT 95–99; BMI 25.0
--- NOTE | 2023-04-01 15:53 | DI.CT.S_ITS ---
PROCEDURE: CT ANGIO HEAD AND NECK INDICATIONS: hx of stroke and aneurysm, possible seizure TECHNIQUE: After the administration of intravenous contrast, 1 mm thick sections acquired from the aortic arch through the [place] of [place]. 3-dimensional takssuj-lqsdwzsvq-hfzoupjayz (MIP) and/or volume rendering reformats were acquired of the central intracranial vasculature and neck separately. For radiation dose reduction, the following was used: automated exposure control, adjustment of mA and/or kV according to patient size. COMPARISON: [facility], MR, MR STROKE, 01/19/2020, 19:42. [facility], CT, CT HEAD/BRAIN WO CON, 05/12/2020, 20:59. [facility], CT, CT HEAD/BRAIN WO CON, 08/13/2020, 11:16. [facility], CT, CT HEAD/BRAIN WO CON, 04/01/2023, 16:42. FINDINGS: Image quality: This examination is limited by involuntary motion artifact. BRAIN: CSF spaces: Ventricles are normal in size and shape. Basal cisterns are patent. No extra-axial fluid collections. Brain: Remote infarction can be seen involving the posterior aspect of the right cerebral hemisphere, which is worst involving the right S[employer] territory. Skull and face: Calvarium and facial bones appear intact, without suspicious lesions. Orbits appear normal. Sinuses: Sinuses and mastoids are clear. HEAD CT ANGIOGRAPHY: Anterior circulation: Intracranial internal carotid arteries are normal in size and flow. The flow within the paired anterior cerebral arteries is normal and symmetric. The flow within the middle cerebral arteries is normal and symmetric. The anterior communicating artery is seen. No aneurysms are seen. Posterior circulation: There is dense atherosclerotic calcification seen involving the left V4 segment, with 60-70% narrowing, as on series 6, image 141. The right V4 segment is within normal limits. There is a normal appearing basilar artery. Flow within the posterior cerebral arteries is asymmetric, reduced on the right-side. No aneurysms are seen. NECK CT ANGIOGRAPHY: Carotid system: The great vessels demonstrate a conventional anatomy as they arise from the aortic arch. The origins of the common carotid arteries appear patent. The common carotid arteries demonstrate normal caliber and courses. The bifurcation regions demonstrate atherosclerotic calcification, with 50% narrowing seen on each side. The more distal internal carotid arteries demonstrate normal course and caliber. Posterior circulation: The origins of the vertebral arteries both appear widely patent. The more superior extracranial portions of both vertebral arteries also demonstrate normal courses and calibers. They join to form a normal appearing basilar artery. Soft tissues: Visualized neck soft tissues demonstrate no suspicious abnormalities. Bones: No suspicious bony lesions. Visualized cervical spine appears normally aligned. Moderate cervical spine degenerative change can be seen. IMPRESSION: There is a known prior infarction involving the posterior aspect of the right cerebral hemisphere, which is worst involving the right S[employer] territory. There is associated decreased flow within the right [employer] compared to the left. There is 60-70% narrowing seen involving the left V4 segment. Atherosclerotic calcification with 50% narrowing can be seen involving the carotid bifurcations. Additional findings: Moderate cervical spine degenerative change Any quantitative measurements of stenosis were performed using NASCET criteria. Dictated by: Santiago Page M.D. on 04/01/2023 at 16:15 Approved by: Santiago Page M.D. on 04/01/2023 at 16:19
--- NOTE | 2023-04-01 15:53 | DI.CT.S_ITS ---
PROCEDURE: CT HEAD/BRAIN WO CON INDICATIONS: hx of stroke possible seizure TECHNIQUE: Noncontrast 4.5 mm thick angled axial sections acquired from the foramen magnum to the vertex, with coronal and sagittal reformats. For radiation dose reduction, the following was used: automated exposure control, adjustment of mA and/or kV according to patient size. COMPARISON: [facility], CT, CT HEAD/BRAIN WO CON, 08/13/2020, 11:16. FINDINGS: Image quality: Diagnostic. CSF spaces: Basal cisterns are patent. No extra-axial fluid collections. The ventricles are symmetric in size and shape. Brain: No intracranial bleeds or masses. Moderate chronic right posterior cerebral infarct involving the posterosuperior temporal lobe, parietal lobe, medial occipital lobe superiorly. There is cerebral volume loss for age, with resultant ventricular and sulcal prominence. There are periventricular and deep white matter chronic small vessel ischemic changes. There is intracranial internal carotid artery atherosclerosis. Skull and face: Calvarium and visualized facial bones appear intact, without suspicious lesions. Sinuses: Visualized sinuses and mastoids are clear. IMPRESSION: 1. Chronic right posterior cerebral infarct. 2. No acute intracranial abnormality. Dictated by: Halina Hurd M.D. on 04/01/2023 at 16:55 Approved by: Halina Hurd M.D. on 04/01/2023 at 16:57
[2023-04-01] MEDS: LORazepam 2 MG/ML INJ IV (15:55)
--- NOTE | 2023-04-01 15:55 | ED.NEUROSD ---
HPI - Neuro Symptoms/Deficit <Antolin Lipscomb, DO - Last Filed: 04/01/23 19:28> General Chief Complaint: Neuro Symptoms/Deficit Stated Complaint: Seizures Time Seen by Provider: 04/01/23 15:45 Source: patient and family Mode of arrival: Ambulatory Limitations: no limitations History of Present Illness HPI Narrative: Patient is a 68-year-old male. Has a history of CVA. Also has had a history of a brain tumor that has been removed. Has had 1 prior history of a seizure but that was after he hit his head several years ago. He has not on antiseizure medications. Patient's states that in the past and 3 times today he has had periods of time when he seems like he is confused. Seems to be smacking his lips. Looks off to 1 side. And then symptoms resolved. They have all been short-lived (less than a couple minutes). No loss of bowel or bladder. Not associated with any trauma. Talking with the patient he does not remember these events. Does not seem to be particularly confused afterwards. Does not appear to have any prodromal symptoms such as an aura. At the time of my initial evaluation he did not have any specific symptoms. He had 1 of the events in front of me with his at bedside who stated that that was what she was seen in the past. At the time his heart rate elevated but appeared to be sinus tachycardia. Event lasted less than 10 seconds and then resolved. Afterwards patient did not remember the event. He knew that he was in the hospital. Did not know what year it was in the states that that is not normal for him. There was no generalized shaking noted. No vomiting noted. On Anticoagulants: No Related Data Home Medications Medication Instructions Recorded Confirmed aspirin 81 mg tablet,delayed 81 mg PO QAM 05/05/19 02/11/23 release Previous Rx's Medication Instructions Recorded glucose test monitor #1 ea 05/20/20 lancets #300 ea 05/20/20 glucose test strips #300 ea 07/12/20 nifedipine 90 mg tablet,extended 90 mg PO DAILY #90 tabs 07/14/22 release losartan 100 mg tablet 100 mg PO QAM #90 tabs 08/03/22 metformin 500 mg tablet 500 mg PO BID #180 tabs 11/16/22 metoprolol succinate 25 mg 25 mg PO BID #180 tabs 12/30/22 tablet,extended release 24 hr hydrochlorothiazide 25 mg tablet 25 mg PO DAILY #90 tabs 01/18/23 atorvastatin 40 mg tablet 40 mg PO BEDTIME #90 tabs 03/31/23 levetiracetam 500 mg tablet 500 mg PO BID #60 tabs 04/01/23 (Keppra) Allergies Allergy/AdvReac Type Severity Reaction Status Date / Time No Known Drug Allergies Allergy Verified 04/01/23 15:10 Review of Systems <Antolin Lipscomb DO - Last Filed: 04/01/23 19:28> Review of Systems ROS Unobtainable: All systems reviewed & are unremarkable except as noted in HPI and below Hematologic/Lymphatic On Anticoagulants: No Patient History <DO Chris Juarez Last Filed: 04/01/23 19:28> Medical History Actinic keratoses Hyperlipidemia associated with type 2 diabetes mellitus Diet-controlled type 2 diabetes mellitus Pilomatrixoma of scalp and neck Foot fracture, left Fracture of right lower extremity Chicken pox Cerebrovascular accident (CVA) of thalamus (05/2009) Testicular cancer (1997) Cerebral aneurysm Sebaceous cyst (03/01/17) History of malignant neoplasm of testis (03/14/15) Essential hypertension (03/14/15) Surgical History 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) History of orthopedic surgery History of orchiectomy, unilateral (1997) Family History Father Cancer Heart disease Diabetes mellitus Grandfather Heart disease Grandmother Stroke Mother Hypertension Asthma Social History household members: spouse Smoking Status: Former smoker alcohol intake: never substance use type: marijuana Smoking Status: Former smoker Substance Use Type: marijuana Exam <DO Chris Juarez Last Filed: 04/01/23 19:28> Initial Vital Signs Initial Vital Signs: Vital Signs Temperature 97.6 F 04/01/23 15:03 Pulse Rate 100 H 04/01/23 15:03 Respiratory Rate 18 04/01/23 15:03 Blood Pressure 161/74 H 04/01/23 15:03 Pulse Oximetry 97 04/01/23 15:03 Oxygen Delivery Method Room Air 04/01/23 15:03 Const General: cooperative and No ill appearing Eyes Other: Right eye deviated up into the right. His states that that is normal for him after his prior medical issues. Left pupil round and reactive. At the time of the event that I witnessed his left I did deviate to the left. Resp Effort & Inspection: normal respiratory effort Auscultation: clear to auscultation bilaterally Cardio Rate: regular rate Rhythm: regular rhythm Heart Sounds: no murmurs GI Inspection: normal to inspection and non-distended Skin General: no rashes or lesions noted Neuro Speech: speech normal Other: Deviation of the right eye up into the right which is normal for him. Left eye deviated to the left during the time of the event that was noticed here in the ER. Moving all 4 extremities equally. Extrem Other: No gross deformities. <Jagdeep Cancino MD - Last Filed: 04/04/23 04:18> Initial Vital Signs Initial Vital Signs: Vital Signs Temperature 97.6 F 04/01/23 15:03 Pulse Rate 100 H 04/01/23 15:03 Respiratory Rate 18 04/01/23 15:03 Blood Pressure 161/74 H 04/01/23 15:03 Pulse Oximetry 97 04/01/23 15:03 Oxygen Delivery Method Room Air 04/01/23 15:03 Course <Antolin Lipscomb DO - Last Filed: 04/01/23 19:28> Orders Ordered: Discontinued Medications Sodium Chloride (Normal Saline 0.9%) 1,000 mls @ 125 mls/hr IV CONT [facility] Last Infusion: 04/01/23 20:43 Dose: Infused Documented By: Admin: 04/01/23 16:11 Dose: 125 mls/hr Documented By: PASHA Levetiracetam 1,000 mg/ Sodium (Chloride) 110 mls @ 440 mls/hr IV NOW ONE Stop: 04/01/23 15:54 Last Infusion: 04/01/23 16:28 Dose: Infused Documented By: Admin: 04/01/23 16:06 Dose: 440 mls/hr Documented By: PASHA POTASSIUM CHLORIDE IN WATER (Potassium Cl 10 Meq/100 Ml María Elena) 10 meq in 100 mls @ 100 mls/hr IV Q1H [facility] [place] Stop: 04/01/23 19:29 Last Infusion: 04/01/23 20:40 Dose: Infused Documented By: Admin: 04/01/23 19:38 Dose: 100 mls/hr Documented By: Infusion: 04/01/23 18:44 Dose: Infused Documented By: Admin: 04/01/23 17:44 Dose: 100 mls/hr Documented By: PASHA Lorazepam (Lorazepam 2 Mg/Ml Inj) 2 mg IV NOW ONE Stop: 04/01/23 15:53 Last Admin: 04/01/23 15:55 Dose: 2 mg Documented By: GRZEGORZ Vital Signs Vital signs: Vital Signs - 8 hr 04/01/23 15:03 04/01/23 15:25 04/01/23 15:25 Temperature 97.6 F Pulse Rate 100 H 93 H Respiratory Rate 18 12 Blood Pressure 161/74 H 169/81 H Pulse Oximetry 97 97 Oxygen Delivery Method Room Air Room Air Blow By 04/01/23 15:30 04/01/23 15:30 04/01/23 16:00 Temperature Pulse Rate 90 90 Respiratory Rate 8 L Blood Pressure 171/81 H Pulse Oximetry 97 97 Oxygen Delivery Method 04/01/23 16:00 04/01/23 16:10 04/01/23 16:10 Temperature Pulse Rate 91 H Respiratory Rate 10 L Blood Pressure 166/125 H 183/96 H Pulse Oximetry 96 Oxygen Delivery Method 04/01/23 16:30 04/01/23 16:30 04/01/23 16:50 Temperature Pulse Rate 90 Respiratory Rate 19 Blood Pressure 174/83 H 177/81 H Pulse Oximetry Oxygen Delivery Method Room Air 04/01/23 16:50 04/01/23 17:00 04/01/23 17:00 Temperature Pulse Rate 93 H 83 Respiratory Rate 15 19 Blood Pressure 158/68 H Pulse Oximetry 95 97 Oxygen Delivery Method <Jagdeep Cancino MD - Last Filed: 04/04/23 04:18> Course Course Narrative: Patient signed out from Dr. Lipscomb. Please see his note for prior care. Patient is stable time of patient care transferred. Patient is pending MRI Orders Ordered: Discontinued Medications Sodium Chloride (Normal Saline 0.9%) 1,000 mls @ 125 mls/hr IV CONT [facility] Last Infusion: 04/01/23 20:43 Dose: Infused Documented By: Admin: 04/01/23 16:11 Dose: 125 mls/hr Documented By: PASHA Levetiracetam 1,000 mg/ Sodium (Chloride) 110 mls @ 440 mls/hr IV NOW ONE Stop: 04/01/23 15:54 Last Infusion: 04/01/23 16:28 Dose: Infused Documented By: Admin: 04/01/23 16:06 Dose: 440 mls/hr Documented By: PASHA POTASSIUM CHLORIDE IN WATER (Potassium Cl 10 Meq/100 Ml María Elena) 10 meq in 100 mls @ 100 mls/hr IV Q1H [facility] [place] Stop: 04/01/23 19:29 Last Infusion: 04/01/23 20:40 Dose: Infused Documented By: Admin: 04/01/23 19:38 Dose: 100 mls/hr Documented By: Infusion: 04/01/23 18:44 Dose: Infused Documented By: Admin: 04/01/23 17:44 Dose: 100 mls/hr Documented By: PASHA Lorazepam (Lorazepam 2 Mg/Ml Inj) 2 mg IV NOW ONE Stop: 04/01/23 15:53 Last Admin: 04/01/23 15:55 Dose: 2 mg Documented By: GRZEGORZ Vital Signs Vital signs: Vital Signs - 8 hr 04/01/23 15:03 04/01/23 15:25 04/01/23 15:25 Temperature 97.6 F Pulse Rate 100 H 93 H Respiratory Rate 18 12 Blood Pressure 161/74 H 169/81 H Pulse Oximetry 97 97 Oxygen Delivery Method Room Air Room Air Blow By 04/01/23 15:30 04/01/23 15:30 04/01/23 16:00 Temperature Pulse Rate 90 90 Respiratory Rate 8 L Blood Pressure 171/81 H Pulse Oximetry 97 97 Oxygen Delivery Method 04/01/23 16:00 04/01/23 16:10 04/01/23 16:10 Temperature Pulse Rate 91 H Respiratory Rate 10 L Blood Pressure 166/125 H 183/96 H Pulse Oximetry 96 Oxygen Delivery Method 04/01/23 16:30 04/01/23 16:30 04/01/23 16:50 Temperature Pulse Rate 90 Respiratory Rate 19 Blood Pressure 174/83 H 177/81 H Pulse Oximetry Oxygen Delivery Method Room Air 04/01/23 16:50 04/01/23 17:00 04/01/23 17:00 Temperature Pulse Rate 93 H 83 Respiratory Rate 15 19 Blood Pressure 158/68 H Pulse Oximetry 95 97 Oxygen Delivery Method MDM - Neuro Symptoms/Deficit <Antolin LipscombDO - Last Filed: 04/01/23 19:28> Medical Records Attestation: I reviewed the patient's medical records. Lab Data Attestation: I reviewed the patient's lab results. 04/01/23 16:00 04/01/23 16:00 Labs: Lab Results 04/01/23 04/01/23 04/01/23 Range/Units 16:00 16:20 16:20 WBC 13.7 H (4.5-11.0) X10^3/uL RBC 4.71 (4.5-5.9) X10^6/uL Hgb 14.2 (13.5-17.5) g/dL Hct 39.6 L (41-53) % MCV 84.1 (80-100) fL MCH 30.1 (26-34) PG MCHC 35.8 (30-36) % RDW 14.0 (11.6-14.8) % Plt Count 247 (150-400) X10^3/uL Neut % (Auto) 92.5 H (50-75) % Lymph % (Auto) 4.5 L (25-40) % [place] % (Auto) 2.4 L (3-14) % Eos % (Auto) 0.1 L (2-4) % Baso % (Auto) 0.5 (0-2) % Neut # (Auto) 99113 H (7290-2733) /uL Lymph # (Auto) 600 L (0793-7814) /uL [place] # (Auto) 300 (0-900) /uL Eos # (Auto) 0 (0-450) /uL Baso # (Auto) 100 (0-100) /uL Sodium 139 (137-145) mmol/L Potassium 2.9 L (3.4-5.1) mmol/L Chloride 99 (98-107) mmol/L Carbon Dioxide 27 (22-32) mmol/L BUN 22 H (9-20) mg/dL Creatinine 1.30 H (0.66-1.25) mg/dL Estimated GFR > 60 (>60) mL/min BUN/Creatinine Ratio 16.9 (6-22) Glucose 181 H (80-110) mg/dL Calcium 9.4 (8.4-10.2) mg/dL Total Bilirubin 0.9 (0.2-1.3) mg/dL AST 36 (17-59) IU/L ALT 31 (<50) IU/L Alkaline Phosphatase 52 (38-126) U/L Total Protein 8.2 (6.3-8.2) g/dL Albumin 4.7 (3.5-5.0) g/dL Globulin 3.5 (1.7-4.1) g/dL Albumin/Globulin Ratio 1.3 (1.0-2.8) Lipase 666 H (23-300) U/L Prolactin 26.6 H (3.7-17.9) ng/mL Urine Color Yellow Urine Appearance Clear Urine pH 7.5 Normal (4.5-8.0) Ur Specific [place] 1.020 (1.000-1.035) Urine Protein 1+ H (Negative) Urine Glucose (UA) 1+ H (Negative) g/dL Urine Ketones 1+ H (NEGATIVE) Urine Occult Blood 1+ H (Negative) Urine Nitrate Negative (Negative) Urine Bilirubin Negative (NEGATIVE) Urine Urobilinogen 0.2 (0.2) E.U./dL Ur Leukocyte Esterase Negative (NEGATIVE) Urine RBC 1-5/hpf (0-5/HPF) Urine WBC 0-1/hpf (0-5/HPF) Ur Squamous Epith Cells 0-1 /hpf (0-5/HPF) Urine Bacteria None seen (None) Hyaline Casts 0-1/lpf (None) Ur Culture Indicated? Cult not indicated U Opiates 300ng/mL cut Negative (Negative) Ur Oxycodone Screen Negative (Negative) Urine Methadone Screen Negative (Negative) Ur Barbiturates Screen Negative (Negative) U Tricyclic Antidepress Negative (Negative) Ur Phencyclidine Scrn Negative (Negative) Ur Amphetamines Screen Negative (Negative) U Methamphetamines Scrn Negative (Negative) Ur MDMA Scrn (Ecstasy) Negative (Negative) U Benzodiazepines Scrn Negative (Negative) Urine Cocaine Screen Negative (Negative) U Marijuana (THC) Screen Positive H (Negative) Urine Specific [place] Normal (Normal) Ethyl Alcohol < 10 ( - 10) mg/dL Ur Creatinine Normal (Normal) Imaging Data CT scan - head: Radiologist's Impression: PROCEDURE: CT HEAD/BRAIN WO CON INDICATIONS: hx of stroke possible seizure TECHNIQUE: Noncontrast 4.5 mm thick angled axial sections acquired from the foramen magnum to the vertex, with coronal and sagittal reformats. For radiation dose reduction, the following was used: automated exposure control, adjustment of mA and/or kV according to patient size. COMPARISON: [facility], CT, CT HEAD/BRAIN WO CON, 08/13/2020, 11:16. FINDINGS: Image quality: Diagnostic. CSF spaces: Basal cisterns are patent. No extra-axial fluid collections. The ventricles are symmetric in size and shape. Brain: No intracranial bleeds or masses. Moderate chronic right posterior cerebral infarct involving the posterosuperior temporal lobe, parietal lobe, medial occipital lobe superiorly. There is cerebral volume loss for age, with resultant ventricular and sulcal prominence. There are periventricular and deep white matter chronic small vessel ischemic changes. There is intracranial internal carotid artery atherosclerosis. Skull and face: Calvarium and visualized facial bones appear intact, without suspicious lesions. Sinuses: Visualized sinuses and mastoids are clear. IMPRESSION: 1. Chronic right posterior cerebral infarct. 2. No acute intracranial abnormality. CTA - brain/neck: Radiologist's Impression: PROCEDURE: CT ANGIO HEAD AND NECK INDICATIONS: hx of stroke and aneurysm, possible seizure TECHNIQUE: After the administration of intravenous contrast, 1 mm thick sections acquired from the aortic arch through the [place] of [place]. 3-dimensional uhpdsse-imfyqycvl-skdkbhdusa (MIP) and/or volume rendering reformats were acquired of the central intracranial vasculature and neck separately. For radiation dose reduction, the following was used: automated exposure control, adjustment of mA and/or kV according to patient size. COMPARISON: [facility], MR, MR STROKE, 01/19/2020, 19:42. [facility], CT, CT HEAD/BRAIN WO CON, 05/12/2020, 20:59. [facility], CT, CT HEAD/BRAIN WO CON, 08/13/2020, 11:16. [facility], CT, CT HEAD/BRAIN WO CON, 04/01/2023, 16:42. FINDINGS: Image quality: This examination is limited by involuntary motion artifact. BRAIN: CSF spaces: Ventricles are normal in size and shape. Basal cisterns are patent. No extra-axial fluid collections. Brain: Remote infarction can be seen involving the posterior aspect of the right cerebral hemisphere, which is worst involving the right [employer] territory. Skull and face: Calvarium and facial bones appear intact, without suspicious lesions. Orbits appear normal. Sinuses: Sinuses and mastoids are clear. HEAD CT ANGIOGRAPHY: Anterior circulation: Intracranial internal carotid arteries are normal in size and flow. The flow within the paired anterior cerebral arteries is normal and symmetric. The flow within the middle cerebral arteries is normal and symmetric. The anterior communicating artery is seen. No aneurysms are seen. Posterior circulation: There is dense atherosclerotic calcification seen involving the left V4 segment, with 60-70% narrowing, as on series 6, image 141. The right V4 segment is within normal limits. There is a normal appearing basilar artery. Flow within the posterior cerebral arteries is asymmetric, reduced on the right-side. No aneurysms are seen. NECK CT ANGIOGRAPHY: Carotid system: The great vessels demonstrate a conventional anatomy as they arise from the aortic arch. The origins of the common carotid arteries appear patent. The common carotid arteries demonstrate normal caliber and courses. The bifurcation regions demonstrate atherosclerotic calcification, with 50% narrowing seen on each side. The more distal internal carotid arteries demonstrate normal course and caliber. Posterior circulation: The origins of the vertebral arteries both appear widely patent. The more superior extracranial portions of both vertebral arteries also demonstrate normal courses and calibers. They join to form a normal appearing basilar artery. Soft tissues: Visualized neck soft tissues demonstrate no suspicious abnormalities. Bones: No suspicious bony lesions. Visualized cervical spine appears normally aligned. Moderate cervical spine degenerative change can be seen. IMPRESSION: There is a known prior infarction involving the posterior aspect of the right cerebral hemisphere, which is worst involving the right [employer] territory. There is associated decreased flow within the right [employer] compared to the left. There is 60-70% narrowing seen involving the left V4 segment. Atherosclerotic calcification with 50% narrowing can be seen involving the carotid bifurcations. Additional findings: Moderate cervical spine degenerative change Any quantitative measurements of stenosis were performed using NASCET criteria. MRI brain: Radiologist's Impression: PROCEDURE: MR HEAD/BRAIN WO CON INDICATIONS: hx of CVA now with seizures TECHNIQUE: Non-contrast axial T1 spin echo, axial T2 fast spin echo, sagittal and axial FLAIR, coronal T2 fast spin echo, axial gradient echo, axial diffusion and ADC through the brain. COMPARISON: [facility], CT, CT HEAD/BRAIN WO CON, 04/01/2023, 16:42. FINDINGS: Image quality: Significant motion artifacts. CSF spaces: Ventricles appear symmetric in size and shape. Basal cisterns are patent. No extra-axial fluid collections. Brain: Old infarct in the right parietal lobe with encephalomalacia and gliosis. No intracranial bleeds or mass effects. There is cerebral volume loss for age. There are periventricular and deep white matter chronic small vessel ischemic changes. Brainstem appears normal. Diffusion-weighted images show no acute infarct. Normal intravascular flow voids are present. Skull and face: Calvarial bone marrow is normal in signal. Orbits are normal. Sinuses: Mild bilateral maxillary sinus disease. The mastoids are clear. IMPRESSION: Limited examination due to motion artifacts. 1. No acute intracranial abnormalities. 2. Old right parietal infarct. 3. Cerebral volume loss and chronic microvascular ischemic changes. 4. Mild bilateral maxillary sinus disease. ECG Data Attestation: I personally reviewed and interpreted this ECG as follows: Interpretation: Sinus rhythm Ventricular rate 93 Normal axis Normal QRS Normal QTC No ST T wave changes MDM Narrative Medical decision making narrative: Based on the presentation today and what the is stating I do feel like he is having seizure-like activity. His workup here in the emergency department shows hypokalemia which I suspect is an incidental finding. Imaging studies showed no acute pathology. I have low suspicion for CVA. No trauma. I suspect that these symptoms have been happening more often than what the patient and the think she states there have been times where he is done similar episodes that she has not thought much of in her voice resolved on their own. We discussed the importance of follow-up with Neurology. We will start him on Keppra until he sees Neurology. was instructed that if the symptoms ever start and not resolve on their own that she needs to contact EMS to return to the emergency department. I also advised that if he has multiple events in a row that he may need to return to the emergency department as we may need to adjust his Keppra level. She expressed understanding and agreement with plan. <Jagdeep Cancino MD - Last Filed: 04/04/23 04:18> Lab Data Labs: Lab Results 04/01/23 04/01/23 04/01/23 Range/Units 16:00 16:20 16:20 WBC 13.7 H (4.5-11.0) X10^3/uL RBC 4.71 (4.5-5.9) X10^6/uL Hgb 14.2 (13.5-17.5) g/dL Hct 39.6 L (41-53) % MCV 84.1 (80-100) fL MCH 30.1 (26-34) PG MCHC 35.8 (30-36) % RDW 14.0 (11.6-14.8) % Plt Count 247 (150-400) X10^3/uL Neut % (Auto) 92.5 H (50-75) % Lymph % (Auto) 4.5 L (25-40) % [place] % (Auto) 2.4 L (3-14) % Eos % (Auto) 0.1 L (2-4) % Baso % (Auto) 0.5 (0-2) % Neut # (Auto) 61628 H (8173-5799) /uL Lymph # (Auto) 600 L (7957-3659) /uL [place] # (Auto) 300 (0-900) /uL Eos # (Auto) 0 (0-450) /uL Baso # (Auto) 100 (0-100) /uL Sodium 139 (137-145) mmol/L Potassium 2.9 L (3.4-5.1) mmol/L Chloride 99 (98-107) mmol/L Carbon Dioxide 27 (22-32) mmol/L BUN 22 H (9-20) mg/dL Creatinine 1.30 H (0.66-1.25) mg/dL Estimated GFR > 60 (>60) mL/min BUN/Creatinine Ratio 16.9 (6-22) Glucose 181 H (80-110) mg/dL Calcium 9.4 (8.4-10.2) mg/dL Total Bilirubin 0.9 (0.2-1.3) mg/dL AST 36 (17-59) IU/L ALT 31 (<50) IU/L Alkaline Phosphatase 52 (38-126) U/L Total Protein 8.2 (6.3-8.2) g/dL Albumin 4.7 (3.5-5.0) g/dL Globulin 3.5 (1.7-4.1) g/dL Albumin/Globulin Ratio 1.3 (1.0-2.8) Lipase 666 H (23-300) U/L Prolactin 26.6 H (3.7-17.9) ng/mL Urine Color Yellow Urine Appearance Clear Urine pH 7.5 Normal (4.5-8.0) Ur Specific [place] 1.020 (1.000-1.035) Urine Protein 1+ H (Negative) Urine Glucose (UA) 1+ H (Negative) g/dL Urine Ketones 1+ H (NEGATIVE) Urine Occult Blood 1+ H (Negative) Urine Nitrate Negative (Negative) Urine Bilirubin Negative (NEGATIVE) Urine Urobilinogen 0.2 (0.2) E.U./dL Ur Leukocyte Esterase Negative (NEGATIVE) Urine RBC 1-5/hpf (0-5/HPF) Urine WBC 0-1/hpf (0-5/HPF) Ur Squamous Epith Cells 0-1 /hpf (0-5/HPF) Urine Bacteria None seen (None) Hyaline Casts 0-1/lpf (None) Ur Culture Indicated? Cult not indicated U Opiates 300ng/mL cut Negative (Negative) Ur Oxycodone Screen Negative (Negative) Urine Methadone Screen Negative (Negative) Ur Barbiturates Screen Negative (Negative) U Tricyclic Antidepress Negative (Negative) Ur Phencyclidine Scrn Negative (Negative) Ur Amphetamines Screen Negative (Negative) U Methamphetamines Scrn Negative (Negative) Ur MDMA Scrn (Ecstasy) Negative (Negative) U Benzodiazepines Scrn Negative (Negative) Urine Cocaine Screen Negative (Negative) U Marijuana (THC) Screen Positive H (Negative) Urine Specific [place] Normal (Normal) Ethyl Alcohol < 10 ( - 10) mg/dL Ur Creatinine Normal (Normal) [facility] Narrative Medical decision making narrative: Based on the presentation today and what the is stating I do feel like he is having seizure-like activity. His workup here in the emergency department shows hypokalemia which I suspect is an incidental finding. Imaging studies showed no acute pathology. I have low suspicion for CVA. No trauma. I suspect that these symptoms have been happening more often than what the patient and the think she states there have been times where he is done similar episodes that she has not thought much of in her voice resolved on their own. We discussed the importance of follow-up with Neurology. We will start him on Keppra until he sees Neurology. was instructed that if the symptoms ever start and not resolve on their own that she needs to contact EMS to return to the emergency department. I also advised that if he has multiple events in a row that he may need to return to the emergency department as we may need to adjust his Keppra level. She expressed understanding and agreement with plan. MRI resulted and nonactionable. Patient discharged home with Neurology follow-up Discharge Plan Departure Patient Disposition: Home Clinical Impression: Seizure-like activity, Hypokalemia Instructions: Seizure Disorder -- Adult Activity Restrictions/Additional Instructions: I suspect that you are having seizure-like activity based on what I observed here in the emergency department. You do need follow-up with Neurology. Make sure that you contact your primary doctor for this. We are going to start you on a new medicine called Keppra. This is a medicine you will take twice a day. If the seizure activity worsens or happens multiple times like we discussed you do need to return to the emergency department for further evaluation. Prescriptions: New levetiracetam [Keppra] 500 mg tablet 500 mg PO BID Qty: 60 2RF No Action (DME) glucose test strips See Rx Instructions .Route .MEDSUPPLY Qty: 300 3RF Rx Instructions: check blood sugar 3 times daily nifedipine 90 mg tablet extended release 90 mg PO DAILY Qty: 90 2RF Rx Instructions: Please follow up with Dr. Cheng in October/November 2023 losartan 100 mg tablet 100 mg PO QAM Qty: 90 3RF metformin 500 mg tablet 500 mg PO BID Qty: 180 1RF metoprolol succinate 25 mg tablet extended release 24 hr 25 mg PO BID Qty: 180 1RF hydrochlorothiazide 25 mg tablet 25 mg PO DAILY Qty: 90 0RF Rx Instructions: PLEASE CALL INTO CLINIC AND SCHEDULE NEW PATIENT APPT W/NEW PROVIDER BEFORE END OF RX/FUTURE FILLS. THANKS 01/18/23. atorvastatin 40 mg tablet 40 mg PO BEDTIME Qty: 90 0RF aspirin 81 mg tablet,delayed release (DR/EC) 81 mg PO QAM (DME) glucose test monitor See Rx Instructions .Route .MEDSUPPLY Qty: 1 0RF Rx Instructions: use to check blood sugar 2 times daily (DME) lancets See Rx Instructions .Route .MEDSUPPLY Qty: 300 3RF Rx Instructions: check blood sugar 2 times daily Referrals: Maggy Mora DO [Primary Care Provider] - Stand Alone Forms: Patient Portal/API
[2023-04-01] MEDS: levETIRAcetam 1,000 MG in SODIUM CHLORIDE 0.9% 100 ML 440 MG IV (16:06)
[2023-04-01] MEDS: SODIUM CHLORIDE 0.9% 1,000 ML 125 ML IV (16:11)
[2023-04-01 16:15] LABS: Add Manual Diff / Slide Review NO; Basophils Absolute Auto 100 /uL (0-100); Basophils Percent Auto 0.5 % (0-2); Eosinophils Absolute Auto 0 /uL (0-450); Eosinophils Percent Auto 0.1 % (2-4); Hematocrit 39.6 % (41-53); Hemoglobin 14.2 g/dL (13.5-17.5); Lymphocytes Absolute Auto 600 /uL (1100-4500); Lymphocytes Percent Auto 4.5 % (25-40); Mean Corpuscular HGB Conc 35.8 % (30-36); Mean Corpuscular Hemoglobin 30.1 PG (26-34); Mean Corpuscular Volume 84.1 fL (80-100); Monocytes Absolute Auto 300 /uL (0-900); Monocytes Percent Auto 2.4 % (3-14); Neutrophils Absolute Auto 12600 /uL (1500-7000); Neutrophils Percent Auto 92.5 % (50-75); Platelet Count 247 X10^3/uL (150-400); Red Blood Cell Count 4.71 X10^6/uL (4.5-5.9); White Blood Cell Count 13.7 X10^3/uL (4.5-11.0)
--- NOTE | 2023-04-01 16:16 | PC.NURSE ---
right eye deviated upward since his stroke , 3 years ago.
--- NOTE | 2023-04-01 16:17 | PC.NURSE ---
pt had facial twitching, seizure pads on. dr. ramirez at bedside. jerel ordered ativan ordered
[2023-04-01 16:24] LABS: Alanine Aminotransferase 31 IU/L (<50); Albumin 4.7 g/dL (3.5-5.0); Albumin Globulin Ratio 1.3 (1.0-2.8); Alkaline Phosphatase 52 U/L (38-126); BUN Creatinine Ratio 16.9 (6-22); Bilirubin Total 0.9 mg/dL (0.2-1.3); Blood Urea Nitrogen 22 mg/dL (9-20); Calcium 9.4 mg/dL (8.4-10.2); Carbon Dioxide 27 mmol/L (22-32); Chloride 99 mmol/L (98-107); Estimated Glomerular Filt Rate > 60 mL/min (>60); Ethanol (ETOH) < 10 mg/dL; Globulin 3.5 g/dL (1.7-4.1); Glucose 181 mg/dL (80-110); HEMOLYSIS < 15 (0-50); Lipase 666 U/L (23-300); Potassium 2.9 mmol/L (3.4-5.1); Sodium 139 mmol/L (137-145); Total Protein 8.2 g/dL (6.3-8.2)
[2023-04-01 16:29] LABS: Appearance Urine UA CLEAR; Bilirubin Urine UA NEGATIVE (NEGATIVE); Color Urine UA YELLOW; Glucose Urine UA 1+ g/dL (Negative); Ketones Urine UA 1+ (NEGATIVE); Leukocyte Esterase Urine UA NEGATIVE (NEGATIVE); Nitrite Urine UA NEGATIVE (Negative); Occult Blood Urine UA 1+ (Negative); Protein Urine UA 1+ (Negative); Urobilinogen Urine UA 0.2 E.U./dL (0.2); pH Urine UA 7.5 (4.5-8.0)
[2023-04-01 16:36] LABS: UR Morphine/Opiate cutoff 300 Negative (Negative); Ur Creatinine Normal (Normal); Ur Specific Gravity Normal (Normal); Urine Amphetamines Negative (Negative); Urine Barbiturates Negative (Negative); Urine Benzodiazepines Negative (Negative); Urine Cocaine Negative (Negative); Urine MDMA Negative (Negative); Urine Methadone Negative (Negative); Urine Methamphetamines Negative (Negative); Urine Oxycodone Negative (Negative); Urine Phencyclidine Negative (Negative); Urine Tetrahydrocannabinol Positive (Negative); Urine Tricyclic Antidepressant Negative (Negative); Urine pH Normal (Normal)
[2023-04-01 16:40] LABS: Bacteria Urine None Seen; Culture Indicated Urine Cult Not Indicated; Hyaline Casts Urine 0-1/LPF; RBC Urine 1-5/HPF (0-5/HPF); Squamous Epithelial Cell Urine 0-1 /HPF (0-5/HPF); WBC Urine 0-1/HPF (0-5/HPF)
[2023-04-01 16:52] LABS: Prolactin 26.6 ng/mL (3.7-17.9)
--- NOTE | 2023-04-01 17:40 | DI.MRI.S_ITS ---
PROCEDURE: MR HEAD/BRAIN WO CON INDICATIONS: hx of CVA now with seizures TECHNIQUE: Non-contrast axial T1 spin echo, axial T2 fast spin echo, sagittal and axial FLAIR, coronal T2 fast spin echo, axial gradient echo, axial diffusion and ADC through the brain. COMPARISON: [facility], CT, CT HEAD/BRAIN WO CON, 04/01/2023, 16:42. FINDINGS: Image quality: Significant motion artifacts. CSF spaces: Ventricles appear symmetric in size and shape. Basal cisterns are patent. No extra-axial fluid collections. Brain: Old infarct in the right parietal lobe with encephalomalacia and gliosis. No intracranial bleeds or mass effects. There is cerebral volume loss for age. There are periventricular and deep white matter chronic small vessel ischemic changes. Brainstem appears normal. Diffusion-weighted images show no acute infarct. Normal intravascular flow voids are present. Skull and face: Calvarial bone marrow is normal in signal. Orbits are normal. Sinuses: Mild bilateral maxillary sinus disease. The mastoids are clear. IMPRESSION: Limited examination due to motion artifacts. 1. No acute intracranial abnormalities. 2. Old right parietal infarct. 3. Cerebral volume loss and chronic microvascular ischemic changes. 4. Mild bilateral maxillary sinus disease. Dictated by: Snow Nicole M.D. on 04/01/2023 at 18:38 Approved by: Snow Nicole M.D. on 04/01/2023 at 18:40
[2023-04-01] MEDS: POTASSIUM CHLORIDE IN WATER 10 MEQ/100 ML PIGGYBACK 100 MEQ IV ×2 (17:44→19:38)
--- NOTE | 2023-04-01 17:54 | PC.NURSE ---
pt is sedated after Ativan and his seizure.
[2023-04-02 15:07] LABS: Aspartate Aminotransferase 36 IU/L (17-59)
== END 2023-04-01 20:43 | disposition home or self-care (01) ==
PROVIDERS: Emergency Provider Emergency Medicine; Family Provider Student in an Organized Health Care Education/Training Program; PCP Family Medicine
DX: R56.9 Unspecified convulsions (principal); E87.6 Hypokalemia
CPT/HCPCS: 36415; 70450; 70496; 70498; 70551; 80053; 80305; 80320; 81001; 83690; 84146; 85025; 93005; 96365; 96366; 96367; 96375; 99284; J1953; J2060; Q9967

== ENCOUNTER → 2023-05-03 11:05 | Outpatient (CLI) | payer MEDICARE, SELFPAY ==
[2020-01-22 13:05] VITALS: BMI 25.0
[2023-05-03 11:35] LABS: Hemoglobin A1C% w Est Avg Glu 5.6 % (4.0-6.0)
[2023-05-03 11:46] LABS: Cholesterol 129 mg/dL (140-199); HDL Cholesterol 37 mg/dL (40-60); LDL Cholesterol Calculated 67 mg/dL (<100); Triglycerides 125 mg/dL (35-150)
[2023-05-04 19:06] LABS: Creatinine Urine Random 179.2 mg/dL
[2023-05-04 19:31] LABS: Microalbumi Creatinin Ratio Ur 26.2 ug/mg CR (<30); Microalbumin Urine Random 4.7 mg/dL (0-1.6)
== END ==
PROVIDERS: Family Provider Student in an Organized Health Care Education/Training Program; PCP Family Medicine; Referring Provider Family Medicine; Visit Provider Family Medicine
DX: E11.9 Type 2 diabetes mellitus without complications (principal); I10 Essential (primary) hypertension
CPT/HCPCS: 36415; 80061; 82043; 82570; 83036

== ENCOUNTER → 2024-12-15 09:11 | Outpatient (CLI) | payer MEDICARE, SELFPAY ==
[2020-01-22 13:05] VITALS: BMI 25.0
[2024-12-15 09:45] LABS: Add Manual Diff / Slide Review NO; Hematocrit 34.4 % (41-53); Hemoglobin 12.4 g/dL (13.5-17.5); Lymphocytes Absolute Auto 1300 /uL (1100-4500); Mean Corpuscular HGB Conc 36.0 % (30-36); Mean Corpuscular Hemoglobin 30.6 PG (26-34); Mean Corpuscular Volume 84.9 fL (80-100); Platelet Count 235 X10^3/uL (150-400)
[2024-12-15 10:15] LABS: Alanine Aminotransferase 26 IU/L (<50); Albumin 4.1 g/dL (3.5-5.0); Albumin Globulin Ratio 1.6 (1.0-2.8); Alkaline Phosphatase 41 U/L (38-126); Blood Urea Nitrogen 31 mg/dL (9-20); Calcium 9.1 mg/dL (8.4-10.2); Carbon Dioxide 30 mmol/L (22-32); Chloride 99 mmol/L (98-107); Cholesterol 104 mg/dL (140-199); Estimated Glomerular Filt Rate > 60 mL/min (>60); Globulin 2.5 g/dL (1.7-4.1); Glucose 124 mg/dL (70-99); HDL Cholesterol 50 mg/dL (40-60); HEMOLYSIS < 15 (0-50); Potassium 3.1 mmol/L (3.4-5.1); Sodium 139 mmol/L (137-145); Total Protein 6.6 g/dL (6.3-8.2); Triglycerides 169 mg/dL (35-150)
[2024-12-15 10:16] LABS: Hemoglobin A1C% w Est Avg Glu 5.5 % (4.0-6.0)
== END ==
PROVIDERS: PCP Family Medicine; Referring Provider Family Medicine; Visit Provider Family Medicine
DX: E11.69 Type 2 diabetes mellitus with other specified complication (principal); Z12.5 Encounter for screening for malignant neoplasm of prostate; E78.5 Hyperlipidemia, unspecified; I10 Essential (primary) hypertension; N18.31 Chronic kidney disease, stage 3a; R79.89 Other specified abnormal findings of blood chemistry; E11.9 Type 2 diabetes mellitus without complications
CPT/HCPCS: 36415; 80053; 80061; 83036; 84146; 85025; G0103

== ENCOUNTER → 2025-01-22 10:45 | Outpatient (CLI) | payer MEDICARE, SELFPAY ==
[2020-01-22 13:05] VITALS: BMI 25.0
[2025-01-22 12:08] LABS: Microalbumi Creatinin Ratio Ur 649.0 ug/mg CR (<30)
== END ==
PROVIDERS: PCP Family Medicine; Referring Provider Family Medicine; Visit Provider Family Medicine
DX: E11.69 Type 2 diabetes mellitus with other specified complication (principal); E78.5 Hyperlipidemia, unspecified
CPT/HCPCS: 82043; 82570